=== PATIENT | female | born 1965 | race Caucasian/White ===

== ENCOUNTER → 2017-02-20 | Outpatient (CLI) | payer MEDICARE, MEDICAID ==
[2017-02-20 12:25] LABS: ANION GAP 10 (5-19); BLOOD UREA NITROGEN 19 mg/dL (7-20); CARBON DIOXIDE 28 mmol/L (22-30); CHLORIDE 104 mmol/L (98-107); CREATININE RESULT 0.98 mg/dL (0.52-1.25); GLUCOSE 92 mg/dL (75-110); POTASSIUM 4.8 mmol/L (3.6-5.0)
[2017-02-20 12:26] LABS: CALCIUM 9.6 mg/dL (8.4-10.2)
== END ==
LOC: OD 11:36
PROVIDERS: ATTEND Family Medicine
DX: E87.5 Hyperkalemia (principal)
CPT/HCPCS: 36415; 80048

== ENCOUNTER → 2017-03-09 | Outpatient (CLI) | payer MEDICARE, MEDICAID ==
[2017-03-09 14:17] LABS: ANION GAP 13 (5-19); BLOOD UREA NITROGEN 23 mg/dL (7-20); CALCIUM 10.6 mg/dL (8.4-10.2); CARBON DIOXIDE 27 mmol/L (22-30); CHLORIDE 102 mmol/L (98-107); CREATININE RESULT 1.08 mg/dL (0.52-1.25); GLUCOSE 115 mg/dL (75-110); POTASSIUM 5.1 mmol/L (3.6-5.0); SODIUM 141.9 mmol/L (137-145)
== END ==
LOC: OD 12:51
PROVIDERS: ATTEND Family Medicine
DX: E87.5 Hyperkalemia (principal)
CPT/HCPCS: 36415; 80048

== ENCOUNTER → 2017-03-16 | Outpatient (CLI) | payer MEDICARE, MEDICAID ==
[2017-03-16 11:31] LABS: ANION GAP 13 (5-19); BLOOD UREA NITROGEN 20 mg/dL (7-20); CALCIUM 9.7 mg/dL (8.4-10.2); CARBON DIOXIDE 27 mmol/L (22-30); CHLORIDE 102 mmol/L (98-107); CREATININE RESULT 0.98 mg/dL (0.52-1.25); GLUCOSE 113 mg/dL (75-110); POTASSIUM 4.5 mmol/L (3.6-5.0); SODIUM 141.6 mmol/L (137-145)
== END ==
LOC: OD 09:37
PROVIDERS: ATTEND Family Medicine
DX: E87.5 Hyperkalemia (principal)
CPT/HCPCS: 36415; 80048

== ENCOUNTER → 2017-03-21 | Day surgery (SDC) | payer MEDICARE, MEDICAID ==
[~2017-03-21] MED LIST: LIDOCAINE 2% JELLY 5 ML TUBE ONE
== END ==
LOC: END 07:07
PROVIDERS: ATTEND Internal Medicine Gastroenterology
PROC: 4A0B7BZ Measurement of Gastrointestinal Pressure, Via Natural or Artificial Opening (ICD-10-PCS; principal; 2017-03-21)
DX: R13.10 Dysphagia, unspecified (principal)
CPT/HCPCS: 91010

== ENCOUNTER → 2017-06-26 | Outpatient (CLI) | payer MEDICARE, MEDICAID ==
--- NOTE | 2017-06-26 16:44 | RADIOLOGY REPORT (SQ) ---
EXAM DESCRIPTION: CT ABD/PELVIS NO ORAL OR IV COMPLETED DATE/TIME: 06/26/2017 3:55 pm REASON FOR STUDY: LOWER ABDOMINAL PAIN R10.30 LOWER ABDOMINAL PAIN, UNSPECIFIED COMPARISON: CT abdomen and pelvis 07/24/2013, 07/08/2015 TECHNIQUE: CT scan of the abdomen and pelvis performed without intravenous or oral contrast. Images reviewed with lung, soft tissue, and bone windows. Reconstructed coronal and sagittal MPR images revi ewed. All images stored on PACS. All CT scanners at this facility use dose modulation, iterative reconstruction, and/or weight based d osing when appropriate to reduce radiation dose to as low as reasonably achievable (ALARA). [facility]: Dose Right [facility]: CareDose [facility]: Dose Right [facility]: Teradose 4D [facility]: Smart Technologies RADIATION DOSE: Up-to-date CT equipment and radiation dose reduction techniques were employed. CTDIv ol: 30.5 mGy. DLP: 1691 mGy-cm.mGy. LIMITATIONS: Large patient FINDINGS: LOWER CHEST: No significant findings. No nodules or infiltrates. NON-CONTRASTED LIVER, SPLEEN, ADRENALS: Evaluation limited by lack of IV contrast. No identified sign ificant masses. PANCREAS: No masses. No peripancreatic inflammatory changes. GALLBLADDER: Surgically absent RIGHT KIDNEY AND URETER: No suspicious masses. Assessment limited by lack of IV contrast. No signif icant calcifications. No hydronephrosis or hydroureter. LEFT KIDNEY AND URETER: No suspicious masses. Assessment limited by lack of IV contrast. No signifi cant calcifications. No hydronephrosis or hydroureter. AORTA AND RETROPERITONEUM: No aneurysm. No retroperitoneal masses or adenopathy. BOWEL AND PERITONEAL CAVITY: No obvious masses or inflammatory changes. No free fluid. Large amount of stool throughout the colon. No evidence of bowel obstruction APPENDIX: Normal. PELVIS, BLADDER, AND ABDOMINAL WALL:No abnormal masses. No free fluid. Bladder normal. Normal size f emale pelvic organs, IUD in the uterus. BONES: Degenerative disc changes at L5-S1 OTHER: No other significant finding. IMPRESSION: NO SIGNIFICANT OR ACUTE PROCESS IN THE ABDOMEN OR PELVIS. COMMENT: Report called to Laxmi Sheth PA-C 1615 hours 06/26/2017 TECHNICAL DOCUMENTATION: JOB ID: [id number] Quality ID # [id number]: Final reports with documentation of one or more dose reduction techniques (e.g., Au tomated exposure control, adjustment of the mA and/or kV according to patient size, use of iterative reconstruction technique) 2010 [employer]- All Rights Reserved
== END ==
LOC: RAD 15:44
PROVIDERS: ATTEND Physician Assistant
DX: R10.30 Lower abdominal pain, unspecified (principal)
CPT/HCPCS: 74176

== ENCOUNTER → 2017-06-26 | Outpatient (CLI) | payer MEDICARE, MEDICAID ==
[2017-06-26 16:42] LABS: ABSOLUTE EOSINOPHILS # (AUTO) 0.4 10^3/uL (0.0-0.6); ABSOLUTE MONOCYTES (AUTO) 0.8 10^3/uL (0.1-1.4); ABSOLUTE NEUT (AUTO) 6.5 10^3/uL (1.7-8.2); BASOPHILS % (AUTO) 0.5 % (0-2); EOSINOPHILS % (AUTO) 4.1 % (0-6); HEMATOCRIT 39.8 % (36.0-47.0); HEMOGLOBIN 13.4 g/dL (12.0-15.5); HGB HCT DIFFERENCE 0.4; LYMPHOCYTES % (AUTO) 20.3 % (13-45); MEAN CORPUSCULAR HEMOGLOBIN 30.1 pg (27.0-33.4); MEAN CORPUSCULAR HGB CONC 33.5 g/dL (32.0-36.0); MEAN CORPUSCULAR VOLUME 90 fl (80-97); MONOCYTES % (AUTO) 7.8 % (3-13); RED BLOOD COUNT 4.44 10^6/uL (3.72-5.28); RED CELL DISTRIBUTION WIDTH 13.5 % (11.5-14.0); SEGMENTED NEUTROPHILS % (AUTO) 67.3 % (42-78); WHITE BLOOD COUNT 9.6 10^3/uL (4.0-10.5)
[2017-06-26 17:01] LABS: ALANINE AMINOTRANSFERASE 26 U/L (9-52); ALKALINE PHOSPHATASE 121 U/L (38-126); ANION GAP 10 (5-19); ASPARTATE AMINO TRANSFERASE 42 U/L (14-36); BILIRUBIN,DIRECT 0.5 mg/dL (0.0-0.4); BILIRUBIN,TOTAL 0.6 mg/dL (0.2-1.3); BLOOD UREA NITROGEN 20 mg/dL (7-20); CALCIUM 9.7 mg/dL (8.4-10.2); CARBON DIOXIDE 28 mmol/L (22-30); CHLORIDE 101 mmol/L (98-107); CREATININE RESULT 1.14 mg/dL (0.52-1.25); GLUCOSE 80 mg/dL (75-110); LIPASE 35.7 U/L (23-300); POTASSIUM 4.9 mmol/L (3.6-5.0); SODIUM 139.3 mmol/L (137-145); TOTAL PROTEIN 7.1 g/dL (6.3-8.2)
== END ==
LOC: LAB 16:02
PROVIDERS: ATTEND Physician Assistant
DX: R10.30 Lower abdominal pain, unspecified (principal)
CPT/HCPCS: 36415; 80053; 83690; 85025

== ENCOUNTER → 2017-07-16 | Outpatient (CLI) | payer MEDICARE, MEDICAID ==
--- NOTE | 2017-07-16 14:12 | WOMENS IMAGING REPORT ---
EXAM DESCRIPTION: 3D SCREENING MAMMO BILAT COMPLETED DATE/TIME: 07/16/2017 1:19 pm REASON FOR STUDY: ROUTINE SCREENING; Z12.31 Z12.31 ENCNTR SCREEN MAMMOGRAM FOR MALIGNANT NEOPLASM O F JOSE COMPARISON: 03/23/2016 TECHNIQUE: Standard craniocaudal and mediolateral oblique views of each breast recorded using digita l acquisition and breast tomosynthesis. LIMITATIONS: None. FINDINGS: No masses, calcifications or architectural distortion. No areas of suspicion. Read with the assistance of CAD. .[facility] - R2 Cenova Version 1.3 .[facility] Imaging - R2 Cenova Version 1.3 .[facility] - R2 Cenova Version 2.4 .[facility] - R2 Cenova Version 2.4 .[facility] - R2 Excellence Manager Version 9.2 IMPRESSION: NORMAL MAMMOGRAM. BIRADS 1. BREAST DENSITY: a. The breasts are almost entirely fatty. BIRAD: 1 NEGATIVE RECOMMENDATION: ROUTINE SCREENING COMMENT: The patient has been notified of the results by letter per MQSA requirements. Additional no tification policies are in place for contacting patient with suspicious or incomplete findings. Quality ID #[id number]: The [employer] recommends an annual screening mammogram for women aged 40 years or over. This facility utilizes a reminder system to ensure that all patients receive reminder letters, and/or direct phone calls for appointments. This includes reminders for routine scr eening mammograms, diagnostic mammograms, or other Breast Imaging Interventions when appropriate. Th is patient will be placed in the appropriate reminder system. The [employer] (ACR) has developed recommendations for screening MRI of the breast s in certain patient populations, to be used in conjunction with mammography. Breast MRI surveillanc e may be appropriate for women with more than 20% lifetime risk of developing breast cancer as deter mined by genetic testing, significant family history of the disease, or history of mantle radiation f or Hodgkins Disease. ACR Practice Guidelines 2008. DBT Technology DBT is a type of tomographic mammography. With conventional mammography, overlapping breast tissue ma y make lesions difficult to detect, even with good compression. DBT uses an x-ray tube that rotates a round the breast, taking images at different angles. These images are then combined to create thin sl ices of the breast that the radiologist can view as a 3D reconstruction. The [facility] unit can perform full-field digital mammograms (2D imaging); or DBT (3D imaging); or both, in a combination mode that quickly performs both the mammogram and the tomosynthesis scan while the breast is still compressed. PQRS 6045F: Fluoroscopic imaging is not utilized for breast tomosynthesis. TECHNICAL DOCUMENTATION: FINDING NUMBER: (1) ASSESSMENT: (1) JOB ID: [id number] [employer]- All Rights Reserved
== END ==
LOC: WI 13:10
PROVIDERS: ATTEND Physician Assistant
DX: Z12.31 Encounter for screening mammogram for malignant neoplasm of breast (principal)
CPT/HCPCS: 77063; G0202; 77067

== ENCOUNTER → 2017-10-31 | Outpatient (CLI) | payer MEDICARE, MEDICAID ==
[2017-10-31 17:57] LABS: HEMATOCRIT 37.9 % (36.0-47.0); HGB HCT DIFFERENCE 1.1; MEAN CORPUSCULAR HEMOGLOBIN 30.2 pg (27.0-33.4); MEAN CORPUSCULAR HGB CONC 34.3 g/dL (32.0-36.0); MEAN CORPUSCULAR VOLUME 88 fl (80-97); RED CELL DISTRIBUTION WIDTH 13.1 % (11.5-14.0); WHITE BLOOD COUNT 8.6 10^3/uL (4.0-10.5)
[2017-10-31 18:20] LABS: ALANINE AMINOTRANSFERASE 41 U/L (9-52); ALBUMIN 4.1 g/dL (3.5-5.0); ALKALINE PHOSPHATASE 121 U/L (38-126); ANION GAP 13 (5-19); ASPARTATE AMINO TRANSFERASE 41 U/L (14-36); BILIRUBIN,DIRECT 0.3 mg/dL (0.0-0.4); BILIRUBIN,TOTAL 0.3 mg/dL (0.2-1.3); BLOOD UREA NITROGEN 29 mg/dL (7-20); CALCIUM 10.1 mg/dL (8.4-10.2); CARBON DIOXIDE 30 mmol/L (22-30); CHLORIDE 99 mmol/L (98-107); CREATININE RESULT 1.21 mg/dL (0.52-1.25); GLUCOSE 117 mg/dL (75-110); POTASSIUM 5.1 mmol/L (3.6-5.0); SODIUM 141.9 mmol/L (137-145); TOTAL PROTEIN 6.7 g/dL (6.3-8.2)
== END ==
LOC: OD 16:52
PROVIDERS: ATTEND Physician Assistant Medical
DX: E03.9 Hypothyroidism, unspecified (principal); R53.83 Other fatigue; R06.02 Shortness of breath
CPT/HCPCS: 36415; 80053; 83880; 84443; 85027

== ENCOUNTER → 2017-12-10 | Outpatient (CLI) | payer OTHER, MEDICAID ==
[2017-12-10 14:46] LABS: ANION GAP 9 (5-19); BLOOD UREA NITROGEN 21 mg/dL (7-20); CALCIUM 9.9 mg/dL (8.4-10.2); CARBON DIOXIDE 30 mmol/L (22-30); CHLORIDE 102 mmol/L (98-107); GLUCOSE 70 mg/dL (75-110); POTASSIUM 4.6 mmol/L (3.6-5.0); SODIUM 141.1 mmol/L (137-145)
== END ==
LOC: OD 12:58
PROVIDERS: ATTEND Family Medicine
DX: E87.5 Hyperkalemia (principal)
CPT/HCPCS: 36415; 80048

== ENCOUNTER 2018-04-16 17:34 | Emergency (ER) | payer MEDICARE, MEDICAID ==
[2018-04-16] MEDS ORDERED: ASPIRIN 81 MG TABLET, CHEWABLE PO ONE (20:09)
[2018-04-16] MEDS ORDERED: NORMAL SALINE 1000 ML 1,000 ML IV PRN (20:10)
--- NOTE | 2018-04-16 20:20 | ER Document Report ---
ED Medical Screen (RME) - General Chief Complaint: Leg Swelling Stated Complaint: LEFT LOWER LEG PAIN Time Seen by Provider: 04/16/18 20:07 Notes: 53 years old female presents today with left lower leg redness swelling and erythema for the last few days. Also having rapid heartbeat with a history of atrial fibrillation. [place] like having palpitation on and off but did not have any today. She was seen by the primary care physician and referred over here for further evaluation of the rapid A. fib. She is on multiple medications list is included I have greeted and performed a rapid initial assessment of this patient. A comprehensive ED assessment and evaluation of the patient, analysis of test results and completion of the medical decision making process will be conducted by additional ED providers. PHYSICAL EXAMINATION: GENERAL: Well-appearing, well-nourished and in no acute distress. HEAD: Atraumatic, normocephalic. Morbid obesity EYES: Pupils equal round extraocular movements intact, conjunctiva are normal. ENT: Nares patent NECK: Normal range of motion LUNGS: No respiratory distress Musculoskeletal: Normal range of motion examination of the left lower leg-shows diffuse erythema is warm and slightly tender on palpation. NEUROLOGICAL: Normal speech, normal gait. PSYCH: Normal mood, normal affect. SKIN: Warm, Dry, normal turgor, no rashes or lesions noted. TRAVEL OUTSIDE OF THE [place] IN LAST 30 DAYS: No - Related Data Allergies/Adverse Reactions: bismuth subsalicylate [From Pepto-Bismol] Allergy (Severe, Verified 02/02/15 10: 48) VOMITING ciprofloxacin [From Cipro] Adverse Reaction (Intermediate, Verified 03/10/16 10: 04) Dizziness/nasea Past Medical History - Social History Chew tobacco use (# tins/day): No Frequency of alcohol use: Social Drug Abuse: None - Past Medical History Cardiac Medical History: Reports: Hx Atrial Fibrillation, Hx Hypercholesterolemia, Hx Hypertension - medicated Denies: Hx Coronary Artery Disease, Hx Heart Attack Pulmonary Medical History: Reports: Hx Bronchitis Denies: Hx Asthma Neurological Medical History: Denies: Hx Cerebrovascular Accident, Hx Seizures Endocrine Medical History: Reports: Hx Diabetes Mellitus Type 1, Hx Diabetes Mellitus Type 2 Renal/ Medical History: Denies: Hx Peritoneal Dialysis GI Medical History: Reports: Hx Diverticulitis, Hx Gastritis, Hx Gastroesophageal Reflux Disease, Hx Hiatal Hernia, Hx Irritable Bowel. Denies: Hx Hepatitis, Hx Ulcer Musculoskeltal Medical History: Reports Hx Arthritis, Reports Hx Musculoskeletal Deformity, Reports Hx Musculoskeletal Trauma Skin Medical History: Reports Hx Cellulitis Traumatic Medical History: Reports: Hx Fractures - foot Infectious Medical History: Denies: Hx Hepatitis, Hx MRSA, Hx VRE Past Surgical History: Reports: Hx Section, Hx Cholecystectomy, Hx Neurologic Surgery - nerve release right foot, Hx Oral Surgery, Hx Orthopedic Surgery. Denies: Hx Hysterectomy, Hx Mastectomy, Hx Open Heart Surgery, Hx Pacemaker - Immunizations Immunizations up to date: Yes Hx Diphtheria, Pertussis, Tetanus Vaccination: Yes Physical Exam - Vital signs Vitals: Temp Pulse Resp BP Pulse Ox 98.4 F 89 18 131/74 H 97 04/16/18 17:43 04/16/18 17:43 04/16/18 17:43 04/16/18 17:43 04/16/18 17:43 Course - Vital Signs Vital signs: Temp Pulse Resp BP Pulse Ox 98.4 F 89 18 131/74 H 97 04/16/18 17:43 04/16/18 17:43 04/16/18 17:43 04/16/18 17:43 04/16/18 17:43
[2018-04-16] MEDS ORDERED: CEFTRIAXONE 1 GM/D5W RTU 1 GM/50 ML RTUPB IV ONE (21:00)
[2018-04-16 21:36] LABS: ALANINE AMINOTRANSFERASE 39 U/L (9-52); ALBUMIN 4.2 g/dL (3.5-5.0); ALKALINE PHOSPHATASE 207 U/L (38-126); ANION GAP 13 (5-19); ASPARTATE AMINO TRANSFERASE 62 U/L (14-36); BILIRUBIN,DIRECT 0.6 mg/dL (0.0-0.4); BILIRUBIN,TOTAL 0.6 mg/dL (0.2-1.3); BLOOD UREA NITROGEN 29 mg/dL (7-20); CALCIUM 10.5 mg/dL (8.4-10.2); CARBON DIOXIDE 30 mmol/L (22-30); CHLORIDE 100 mmol/L (98-107); CREATINE KINASE 80 U/L (30-135); GLUCOSE 79 mg/dL (75-110); POTASSIUM 5.1 mmol/L (3.6-5.0); SODIUM 143.1 mmol/L (137-145); TOTAL PROTEIN 7.8 g/dL (6.3-8.2)
[2018-04-16 22:01] LABS: ABSOLUTE EOSINOPHILS # (AUTO) 0.3 10^3/uL (0.0-0.6); ABSOLUTE LYMPHOCYTES (AUTO) 1.9 10^3/uL (0.5-4.7); ABSOLUTE MONOCYTES (AUTO) 0.6 10^3/uL (0.1-1.4); ABSOLUTE NEUT (AUTO) 7.5 10^3/uL (1.7-8.2); BASOPHILS % (AUTO) 0.5 % (0-2); EOSINOPHILS % (AUTO) 2.5 % (0-6); HEMATOCRIT 38.9 % (36.0-47.0); HEMOGLOBIN 13.2 g/dL (12.0-15.5); LYMPHOCYTES % (AUTO) 18.1 % (13-45); MEAN CORPUSCULAR HEMOGLOBIN 29.3 pg (27.0-33.4); MEAN CORPUSCULAR VOLUME 86 fl (80-97); MONOCYTES % (AUTO) 5.9 % (3-13); PLATELET COUNT 324 10^3/uL (150-450); RED BLOOD COUNT 4.51 10^6/uL (3.72-5.28); RED CELL DISTRIBUTION WIDTH 14.2 % (11.5-14.0); TOTAL CELLS COUNTED % (AUTO) 100 %; WHITE BLOOD COUNT 10.3 10^3/uL (4.0-10.5)
--- NOTE | 2018-04-16 22:03 | ER Document Report ---
ED General - General Chief Complaint: Leg Swelling Stated Complaint: LEFT LOWER LEG PAIN Time Seen by Provider: 04/16/18 20:07 Mode of Arrival: Ambulatory Information source: Patient, [facility] Records Notes: 53-year-old female with atrial fibrillation, diabetes, neuropathy, gastritis presents with complaint of left lower extremity pain, swelling, erythema and warmth that started 5 days prior to arrival. Patient also reports intermittent palpitations and intermittent episodes of shortness of breath. She denies prior history of PE or DVT. She denies any trauma to the leg. She denies any recent surgery, recent travel, estrogen use, cancer history. Patient was seen by her naval architect last week who is arranging for a Holter monitor. Patient denies any chest pain, fever, chills. She admits to chronic nausea and vomiting that is unchanged. She was seen by her natural fabricator who sent her to her primary care physician's office who sent her to the emergency room TRAVEL OUTSIDE OF THE [place] IN LAST 30 DAYS: No - HPI Onset: Last week Onset/Duration: Gradual, Worse Severity: Mild Associated symptoms: Leg swelling, Nausea, Vomiting - Chronic, Shortness of breath - Chronic. denies: Fever, Hurts to breath Exacerbated by: Denies Relieved by: Denies Similar symptoms previously: No Recently seen / treated by doctor: Yes - Related Data Allergies/Adverse Reactions: bismuth subsalicylate [From Pepto-Bismol] Allergy (Severe, Verified 02/02/15 10: 48) VOMITING ciprofloxacin [From Cipro] Adverse Reaction (Intermediate, Verified 03/10/16 10: 04) Dizziness/nasea Past Medical History - General Information source: Patient - Social History Smoking Status: Never Smoker Chew tobacco use (# tins/day): No Frequency of alcohol use: Social Drug Abuse: None Lives with: Family Family History: Arthritis, CAD, CVA, DM, Hyperlipidemia, Hypertension Patient has suicidal ideation: No Patient has homicidal ideation: No - Past Medical History Cardiac Medical History: Reports: Hx Atrial Fibrillation, Hx Hypercholesterolemia, Hx Hypertension - medicated Denies: Hx Coronary Artery Disease, Hx Heart Attack Pulmonary Medical History: Reports: Hx Bronchitis Denies: Hx Asthma Neurological Medical History: Denies: Hx Cerebrovascular Accident, Hx Seizures Endocrine Medical History: Reports: Hx Diabetes Mellitus Type 1, Hx Diabetes Mellitus Type 2 Renal/ Medical History: Denies: Hx Peritoneal Dialysis GI Medical History: Reports: Hx Diverticulitis, Hx Gastritis, Hx Gastroesophageal Reflux Disease, Hx Hiatal Hernia, Hx Irritable Bowel. Denies: Hx Hepatitis, Hx Ulcer Musculoskeltal Medical History: Reports Hx Arthritis, Reports Hx Musculoskeletal Deformity, Reports Hx Musculoskeletal Trauma Skin Medical History: Reports Hx Cellulitis Traumatic Medical History: Reports: Hx Fractures - foot Infectious Medical History: Denies: Hx Hepatitis, Hx MRSA, Hx VRE Past Surgical History: Reports: Hx Section, Hx Cholecystectomy, Hx Neurologic Surgery - nerve release right foot, Hx Oral Surgery, Hx Orthopedic Surgery. Denies: Hx Hysterectomy, Hx Mastectomy, Hx Open Heart Surgery, Hx Pacemaker - Immunizations Immunizations up to date: Yes Hx Diphtheria, Pertussis, Tetanus Vaccination: Yes Physical Exam - Vital signs Vitals: Temp Pulse Resp BP Pulse Ox 98.4 F 89 18 131/74 H 97 04/16/18 17:43 04/16/18 17:43 04/16/18 17:43 04/16/18 17:43 04/16/18 17:43 Interpretation: Hypertensive. No: Febrile - Notes Notes: PHYSICAL EXAMINATION: GENERAL: Well-appearing, well-nourished and in no acute distress. HEAD: Atraumatic, normocephalic. EYES: Pupils equal round and reactive to light, extraocular movements intact, conjunctiva are normal. ENT: Nares patent, oropharynx clear without exudates. Moist mucous membranes. NECK: Normal range of motion, supple without lymphadenopathy LUNGS: Breath sounds clear to auscultation bilaterally and equal. No wheezes rales or rhonchi. HEART: Regular rate and rhythm without murmurs ABDOMEN: Soft, nontender, nondistended abdomen. No guarding, no rebound. No masses appreciated. Female : deferred Musculoskeletal: Swelling of the left lower extremity when compared to right. Tender to palpation along the left calf. Erythema of the left lower extremity with associated warmth. NEUROLOGICAL: Cranial nerves grossly intact. Normal speech, normal gait. Normal sensory, motor exams PSYCH: Normal mood, normal affect. SKIN: Erythema and warmth of the left lower extremity Course - Re-evaluation Re-evalutation: Laboratory 04/16/18 04/16/18 04/16/18 20:55 20:55 21:40 WBC 10.3 RBC 4.51 Hgb 13.2 Hct 38.9 MCV 86 MCH 29.3 MCHC 34.0 RDW 14.2 H Plt Count 324 Seg Neutrophils % 73.0 Lymphocytes % 18.1 Monocytes % 5.9 Eosinophils % 2.5 Basophils % 0.5 Absolute Neutrophils 7.5 Absolute Lymphocytes 1.9 Absolute Monocytes 0.6 Absolute Eosinophils 0.3 Absolute Basophils 0.0 D-Dimer Sodium 143.1 Potassium 5.1 H Chloride 100 Carbon Dioxide 30 Anion Gap 13 BUN 29 H Creatinine 1.00 Est GFR ( Amer) > 60 Est GFR (Non-Af Amer) 58 L Glucose 79 Calcium 10.5 H Total Bilirubin 0.6 Direct Bilirubin 0.6 H Neonat Total Bilirubin Not Reportable Neonat Direct Bilirubin Not Reportable Neonat Indirect Bili Not Reportable AST 62 H ALT 39 Alkaline Phosphatase 207 H Creatine Kinase 80 CK-MB (CK-2) Cancelled Troponin I Cancelled Total Protein 7.8 Albumin 4.2 04/16/18 04/16/18 21:50 21:50 WBC RBC Hgb Hct MCV MCH MCHC RDW Plt Count Seg Neutrophils % Lymphocytes % Monocytes % Eosinophils % Basophils % Absolute Neutrophils Absolute Lymphocytes Absolute Monocytes Absolute Eosinophils Absolute Basophils D-Dimer 0.33 Sodium Potassium Chloride Carbon Dioxide Anion Gap BUN Creatinine Est GFR ( Amer) Est GFR (Non-Af Amer) Glucose Calcium Total Bilirubin Direct Bilirubin Neonat Total Bilirubin Neonat Direct Bilirubin Neonat Indirect Bili AST ALT Alkaline Phosphatase Creatine Kinase CK-MB (CK-2) 1.45 Troponin I < 0.012 Total Protein Albumin 53-year-old female with atrial fibrillation, diabetes, neuropathy, gastritis presents with complaint of left lower extremity pain, swelling, erythema and warmth that started 5 days prior to arrival. Patient also reports intermittent palpitations and intermittent episodes of shortness of breath. She denies prior history of PE or DVT. Patient was seen by myself upon arrival. Vital signs were reviewed. Patient is afebrile, normotensive and not hypoxic. Patient does not appear toxic or dehydrated. They are in no acute distress. Previous medical records and nursing notes reviewed. Significant findings include left lower extremity swelling, erythema, warmth. Patient is currently on Eliquis. CBC is without anemia or leukocytosis. CMP does show a mildly elevated potassium. Cardiac enzymes were within normal limits. Patient also does have mild elevation in her LFTs. Patient received IV ceftriaxone during her ED course. She will be discharged home with prescription for Bactrim and Keflex. Arrangements for outpatient duplex of the left lower extremity was made. Patient provided the opportunity to ask questions, and express concerns. Discharge instructions discussed. Patient is agreeable with discharge home. Return indications explained and discussed with the patient who displays understanding. Patient encouraged to return to the emergency department immediately with any concerns. 04/16/18 22:07 Talked to the equipment engineering technician who states that she is not "allowed to come in after 10:00." She recommends outpatient testing. 04/17/18 00:02 04/17/18 19:39 - Vital Signs Vital signs: Temp Pulse Resp BP Pulse Ox 97.4 F 79 16 132/73 H 99 04/16/18 23:20 04/16/18 23:20 04/16/18 23:20 04/16/18 23:20 04/16/18 23:20 - Laboratory Result Diagrams: 04/16/18 21:40 04/16/18 20:55 Laboratory results interpreted by me: 04/16/18 04/16/18 20:55 21:40 RDW 14.2 H Potassium 5.1 H BUN 29 H Est GFR (Non-Af Amer) 58 L Calcium 10.5 H Direct Bilirubin 0.6 H AST 62 H Alkaline Phosphatase 207 H - Diagnostic Test Radiology reviewed: Image reviewed, Reports reviewed Discharge - Discharge Clinical Impression: Left leg swelling, Left leg cellulitis Condition: Good Disposition: HOME, SELF-CARE Instructions: Cellulitis ([facility]), DVT Workup Pending ([facility]) Additional Instructions: Please return to [facility] first thing tomorrow morning for a duplex of your left leg. Prescriptions: Cephalexin Monohydrate [Keflex 500 mg Capsule] 500 mg PO BID 7 Days #14 capsule Sulfamethoxazole/Trimethoprim [Bactrim Ds Tablet] 1 each PO BID 7 Days #14 tablet Forms: Follow-Up Radiology Testing Referrals: KALYANI NARANJO MD [Primary Care Provider] - Follow up in 3-5 days
--- NOTE | 2018-04-16 22:05 | RADIOLOGY REPORT (SQ) ---
EXAM DESCRIPTION: CHEST SINGLE VIEW COMPLETED DATE/TIME: 04/16/2018 9:31 pm REASON FOR STUDY: Palpitations COMPARISON: 05/25/2016 EXAM PARAMETERS: NUMBER OF VIEWS: One view. TECHNIQUE: Single frontal radiographic view of the chest acquired. RADIATION DOSE: NA LIMITATIONS: None. FINDINGS: LUNGS AND PLEURA: No opacities, masses or pneumothorax. No pleural effusion. MEDIASTINUM AND HILAR STRUCTURES: No masses. Contour normal. HEART AND VASCULAR STRUCTURES: Heart normal in size. Normal vasculature. BONES: No acute findings. HARDWARE: None in the chest. OTHER: No other significant finding. IMPRESSION: NO ACUTE RADIOGRAPHIC FINDING IN THE CHEST. TECHNICAL DOCUMENTATION: JOB ID: [id number] [employer]- All Rights Reserved Reading location - IP/workstation name: [email or web address]
[2018-04-16 22:54] LABS: CREATINE KINASE MB 1.45 ng/mL (<4.55); TROPONIN I < 0.012 ng/mL
[2018-04-16] MEDS ORDERED: ENOXAPARIN SODIUM INJ 150 MG/1 ML DISP.SYRIN SUBCUT SCH (23:00)
[2018-04-17 00:04] VITALS: BP 132/73
== END 2018-04-16 23:20 | disposition home or self-care (01) ==
LOC: ER 17:34
DX: L03.116 Cellulitis of left lower limb (principal); E11.40 Type 2 diabetes mellitus with diabetic neuropathy, unspecified; R00.2 Palpitations; R06.02 Shortness of breath; K29.70 Gastritis, unspecified, without bleeding; I10 Essential (primary) hypertension; R79.89 Other specified abnormal findings of blood chemistry; I48.91 Unspecified atrial fibrillation; Z79.01 Long term (current) use of anticoagulants; Z88.8 Allergy status to other drugs, medicaments and biological substances
CPT/HCPCS: 99284; 96365; 36415; 87040; 82553; 82550; 85025; 80053; 84484; 85379; 71045; A9270; J0696

== ENCOUNTER → 2018-04-17 | Outpatient (CLI) | payer MEDICARE, MEDICAID ==
--- NOTE | 2018-04-17 10:12 | RADIOLOGY REPORT (SQ) ---
EXAM DESCRIPTION: VENOUS UNILATERAL LOWER COMPLETED DATE/TIME: 04/17/2018 10:04 am REASON FOR STUDY: LLE SWELLING M79.89 OTHER SPECIFIED SOFT TISSUE DISORDERS COMPARISON: None. TECHNIQUE: Dynamic and static bridges scale and color images acquired of the left leg venous system. Se lected spectral images acquired with additional compression and augmentation maneuvers. The contralat eral common femoral vein and saphenofemoral junction were also imaged. Images stored on PACS. LIMITATIONS: Large body habitus FINDINGS: LEFT COMMON FEMORAL: Normal phasicity, compression and augmentation. No visualized echogenic material on g ray scale. No defects on color images. FEMORAL: Normal compression and augmentation. No visualized echogenic material on bridges scale. No defe cts on color images. POPLITEAL: Normal compression, augmentation. No visualized echogenic material on bridges scale. No defec ts on color images. CALF VESSELS: Normal compression, augmentation. No visualized echogenic material on bridges scale. No de fects on color images. GSV and SSV: Normal compression, augmentation. No visualized echogenic material on bridges scale. No def ects on color images. ANY DEEP VENOUS INSUFFICIENCY: Not evaluated. ANY EVIDENCE OF POPLITEAL CYST: No. OTHER: No other significant finding. RIGHT COMMON FEMORAL VEIN AND SAPHENOFEMORAL JUNCTION: Normal phasicity, compression and augmentation. No visualized echogenic material on bridges scale. No de fects on color images. IMPRESSION: NO EVIDENCE OF DVT OR SVT IN THE LEFT LEG. TECHNICAL DOCUMENTATION: JOB ID: [id number] [employer]- All Rights Reserved Reading location - IP/workstation name: [email or web address]
== END ==
LOC: SP 09:06
PROVIDERS: ATTEND Student in an Organized Health Care Education/Training Program
DX: M79.89 Other specified soft tissue disorders (principal)
CPT/HCPCS: 93971

== ENCOUNTER → 2018-06-10 | Outpatient (CLI) | payer MEDICARE, MEDICAID ==
--- NOTE | 2018-06-11 11:16 | XCELERA REPORT ---
[address] [address] Lower Extremity Venous Evaluation Name: MICHAELA ALY Age: 53 yrs Gender: Female : 1965 Patient Status: Preadmit Patient Location: Study Date: 06/10/2018 03:30 PM Procedure: A bilateral duplex scan of the lower extremity veins was performed. The evaluation included responses to compression and other maneuvers with patient in the supine and standing positions to assess venous insufficiency. Reason For Study: VENOUS STASIS DERMATITIS Ordering Physician: BRANDON HOPE Performed By: Kar Peterson Right Sided Venous Evaluation Deep venous system evaluatiion shows patent veins with no obstruction or significant reflux identified. Sapheno Femoral junction: no reflux. Femoral vein reflux: no reflux. Greater Saphenous vein, Proximal thigh: reflux: no reflux. Greater Saphenous vein, Distal thigh: reflux: no reflux. Greater Saphenous vein, Proximal below knee: reflux: no reflux. No significant Perforators identified. Left Sided Venous Evaluation Deep venous system evaluatiion shows patent veins with no obstruction or significant reflux identified. Sapheno Femoral junction: no reflux. Femoral vein reflux: no reflux. Greater Saphenous vein, Proximal thigh: reflux: no reflux. Greater Saphenous vein, Distal thigh: reflux: no reflux. Greater Saphenous vein, Proximal below knee: reflux: no reflux. No significant Perforators identified. Interpretation Summary No duplex evidence of DVT or obstruction in the bilateral lower extremities. No deep or superficial reflux. : BRANDON HOPE > Brandon Hope
== END ==
LOC: SP 18:15
PROVIDERS: ATTEND Surgery
DX: I87.2 Venous insufficiency (chronic) (peripheral) (principal)
CPT/HCPCS: 93970

== ENCOUNTER → 2018-06-20 | Outpatient (CLI) | payer MEDICARE, MEDICAID ==
[2018-06-20 17:22] LABS: ABSOLUTE EOSINOPHILS # (AUTO) 0.3 10^3/uL (0.0-0.6); ABSOLUTE LYMPHOCYTES (AUTO) 1.8 10^3/uL (0.5-4.7); ABSOLUTE MONOCYTES (AUTO) 0.6 10^3/uL (0.1-1.4); ABSOLUTE NEUT (AUTO) 5.8 10^3/uL (1.7-8.2); BASOPHILS % (AUTO) 0.3 % (0-2); EOSINOPHILS % (AUTO) 3.5 % (0-6); HEMATOCRIT 37.3 % (36.0-47.0); HEMOGLOBIN 12.6 g/dL (12.0-15.5); LYMPHOCYTES % (AUTO) 20.6 % (13-45); MEAN CORPUSCULAR HEMOGLOBIN 28.6 pg (27.0-33.4); MEAN CORPUSCULAR HGB CONC 33.8 g/dL (32.0-36.0); MEAN CORPUSCULAR VOLUME 85 fl (80-97); PLATELET COUNT 319 10^3/uL (150-450); RED CELL DISTRIBUTION WIDTH 13.9 % (11.5-14.0); SEGMENTED NEUTROPHILS % (AUTO) 68.6 % (42-78); TOTAL CELLS COUNTED % (AUTO) 100 %; WHITE BLOOD COUNT 8.5 10^3/uL (4.0-10.5)
[2018-06-20 17:37] LABS: ALBUMIN 4.3 g/dL (3.5-5.0); ANION GAP 15 (5-19); CARBON DIOXIDE 28 mmol/L (22-30); CHLORIDE 101 mmol/L (98-107); GLUCOSE 96 mg/dL (75-110); POTASSIUM 4.9 mmol/L (3.6-5.0); SODIUM 144.3 mmol/L (137-145); TOTAL PROTEIN 7.1 g/dL (6.3-8.2)
[2018-06-20 17:46] LABS: ALANINE AMINOTRANSFERASE 26 U/L (9-52); ALKALINE PHOSPHATASE 177 U/L (38-126); ASPARTATE AMINO TRANSFERASE 29 U/L (14-36); BILIRUBIN,DIRECT 0.4 mg/dL (0.0-0.4); BILIRUBIN,TOTAL 0.4 mg/dL (0.2-1.3); BLOOD UREA NITROGEN 17 mg/dL (7-20)
[2018-06-20 17:58] LABS: ERYTHROCYTE SEDIMENTATION RATE 40 mm/hr (0-30)
== END ==
LOC: LAB 17:11
PROVIDERS: ATTEND Physician Assistant Medical
DX: R53.83 Other fatigue (principal); R23.3 Spontaneous ecchymoses; E11.9 Type 2 diabetes mellitus without complications; I50.9 Heart failure, unspecified
CPT/HCPCS: 36415; 80053; 85025; 85652

== ENCOUNTER → 2018-07-23 | Outpatient (CLI) | payer MEDICARE, MEDICAID ==
--- NOTE | 2018-07-25 10:18 | WOMENS IMAGING REPORT ---
EXAM DESCRIPTION: 3D SCREENING MAMMO BILAT COMPLETED DATE/TIME: 07/23/2018 3:01 pm REASON FOR STUDY: SCREENING MAMMO Z12.31 ENCNTR SCREEN MAMMOGRAM FOR MALIGNANT NEOPLASM OF JOSE COMPARISON: 2015 TECHNIQUE: Standard craniocaudal and mediolateral oblique views of each breast recorded using digita l acquisition and breast tomosynthesis. LIMITATIONS: None. FINDINGS: No masses, calcifications or architectural distortion. No areas of suspicion. Read with the assistance of CAD. .[facility] - R2 Cenova Version 1.3 .[facility] - R2 Cenova Version 1.3 .[facility] - R2 Cenova Version 2.4 .[facility] - R2 Cenova Version 2.4 .[facility] - R2 Production Reproduction Manager Version 9.2 IMPRESSION: NORMAL MAMMOGRAM. BIRADS 1. BREAST DENSITY: b. There are scattered areas of fibroglandular density. BIRAD: 1 NEGATIVE RECOMMENDATION: ROUTINE SCREENING Please continue yearly bilateral screening tomosynthesis in July 2019 COMMENT: Please continue yearly bilateral screening tomosynthesis in July 2019 The patient has been notified of the results by letter per [place] requirements. Additional notification policies are in place for contacting patient with suspicious or incomplete findings. Quality ID #[id number]: The [employer] recommends an annual screening mammogram for women aged 40 years or over. This facility utilizes a reminder system to ensure that all patients receive reminder letters, and/or direct phone calls for appointments. This includes reminders for routine scr eening mammograms, diagnostic mammograms, or other Breast Imaging Interventions when appropriate. Th is patient will be placed in the appropriate reminder system. The [employer] (ACR) has developed recommendations for screening MRI of the breast s in certain patient populations, to be used in conjunction with mammography. Breast MRI surveillanc e may be appropriate for women with more than 20% lifetime risk of developing breast cancer as deter mined by genetic testing, significant family history of the disease, or history of mantle radiation f or Hodgkins Disease. ACR Practice Guidelines 2008. DBT Technology DBT is a type of tomographic mammography. With conventional mammography, overlapping breast tissue ma y make lesions difficult to detect, even with good compression. DBT uses an x-ray tube that rotates a round the breast, taking images at different angles. These images are then combined to create thin sl ices of the breast that the radiologist can view as a 3D reconstruction. The [employer] unit can perform full-field digital mammograms (2D imaging); or DBT (3D imaging); or both, in a combination mode that quickly performs both the mammogram and the tomosynthesis scan while the breast is still compressed. PQRS 6045F: Fluoroscopic imaging is not utilized for breast tomosynthesis. TECHNICAL DOCUMENTATION: FINDING NUMBER: (1) ASSESSMENT: (1) JOB ID: [id number] [employer]- All Rights Reserved Reading location - IP/workstation name: [email or web address]
== END ==
LOC: WI 14:54
PROVIDERS: ATTEND Family Medicine
DX: Z12.31 Encounter for screening mammogram for malignant neoplasm of breast (principal)
CPT/HCPCS: 77063; 77067

== ENCOUNTER 2018-09-03 08:06 | Emergency (ER) | payer MEDICARE, MEDICAID ==
[2018-09-03] MEDS ORDERED: MECLIZINE HCL 25 MG TABLET PO ONE (08:28)
--- NOTE | 2018-09-03 08:29 | ER Document Report ---
ED General - General Chief Complaint: Dizziness Stated Complaint: VERTIGO Time Seen by Provider: 09/03/18 08:14 Notes: Patient is a 53-year-old female with history of vertigo that presents to the emergency department for chief complaint of dizziness. Patient states that she is had vertigo for some time, and she does get dizzy spells, she had another one this morning, that led to a fall and she hit her head. She is on Eliquis for atrial fibrillation. She states that when she is walking she will occasionally get off balance which is what happened this morning. She also fell yesterday while she was at [facility], and she hit her ahead at that time but did not seek medical attention. She denies having any headache at this time, just describes being off balance, and feeling dizzy. She states usually her son can help her up, but today because he has had issues with his back he was not able to so they called EMS. She denies having any pain in her legs, numbness, tingling or weakness in any extremity. Denies having any slurred speech, or change in her vision. Past Medical History: Atrial fibrillation, on Eliquis, vertigo, diabetes mellitus, hyperlipidemia Past Surgical History: , cataract surgery, toe amputation, cholecystectomy Social History: Denies current tobacco, alcohol or drug use Family History: Reviewed and noncontributory for presenting illness Allergies: Reviewed, see documented allergy list. REVIEW OF SYSTEMS: Unless otherwise stated in this report the patient's positive and negative responses for review of systems for constitutional, eyes, ENT, cardiovascular, respiratory, gastrointestinal, neurological, genitourinary, musculoskeletal, and integumentary systems and related systems to the presenting problem are either as stated in the HPI or were not pertinent or were negative for the symptoms and/or complaints related to the presenting medical problem. PHYSICAL EXAMINATION: Vital signs reviewed, nursing noted reviewed. GENERAL: Well-appearing, well-nourished and in no acute distress. HEAD: Atraumatic, normocephalic. EYES: Eyes appear normal, extraocular movements intact, sclera anicteric, conjunctiva are normal. She is noted to have horizontal nystagmus with gaze to the right, that is fatigable ENT: nares patent, oropharynx clear without exudates. Moist mucous membranes. NECK: Normal range of motion, supple without lymphadenopathy LUNGS: Breath sounds clear to auscultation bilaterally and equal. No wheezes rales or rhonchi. HEART: Regular rate and rhythm without murmurs ABDOMEN: Soft, nontender, normoactive bowel sounds. No rebound, guarding, or rigidity. No masses appreciated. EXTREMITIES: Nontender, good range of motion, no pitting or edema. NEUROLOGICAL: No focal neurological deficits. Moves all extremities spontaneously Motor and sensory grossly intact on exam. NIH stroke scale score : 0, finger nose finger testing is normal, heel kidd testing is negative. PSYCH: Normal mood, normal affect. SKIN: Warm, Dry, normal turgor, no rashes or lesions noted on exposed skin TRAVEL OUTSIDE OF THE [place] IN LAST 30 DAYS: No - Related Data Allergies/Adverse Reactions: bismuth subsalicylate [From Pepto-Bismol] Allergy (Severe, Verified 02/02/15 10: 48) VOMITING ciprofloxacin [From Cipro] Adverse Reaction (Intermediate, Verified 03/10/16 10: 04) Dizziness/nasea Past Medical History - Social History Smoking Status: Never Smoker Family History: Arthritis, CAD, CVA, DM, Hyperlipidemia, Hypertension - Past Medical History Cardiac Medical History: Reports: Hx Atrial Fibrillation, Hx Hypercholesterolemia, Hx Hypertension - medicated Denies: Hx Coronary Artery Disease, Hx Heart Attack Pulmonary Medical History: Reports: Hx Bronchitis Denies: Hx Asthma Neurological Medical History: Denies: Hx Cerebrovascular Accident, Hx Seizures Endocrine Medical History: Reports: Hx Diabetes Mellitus Type 1, Hx Diabetes Mellitus Type 2 Renal/ Medical History: Denies: Hx Peritoneal Dialysis GI Medical History: Reports: Hx Diverticulitis, Hx Gastritis, Hx Gastroesophageal Reflux Disease, Hx Hiatal Hernia, Hx Irritable Bowel. Denies: Hx Hepatitis, Hx Ulcer Musculoskeletal Medical History: Reports Hx Arthritis, Reports Hx Musculoskeletal Deformity, Reports Hx Musculoskeletal Trauma Skin Medical History: Reports Hx Cellulitis Traumatic Medical History: Reports: Hx Fractures - foot Infectious Medical History: Denies: Hx Hepatitis, Hx MRSA, Hx VRE Past Surgical History: Reports: Hx Section, Hx Cholecystectomy, Hx Neurologic Surgery - nerve release right foot, Hx Oral Surgery, Hx Orthopedic Surgery. Denies: Hx Hysterectomy, Hx Mastectomy, Hx Open Heart Surgery, Hx Pacemaker - Immunizations Immunizations up to date: Yes Hx Diphtheria, Pertussis, Tetanus Vaccination: Yes Physical Exam - Vital signs Vitals: Pulse Ox 83 L 09/03/18 08:28 Course - Re-evaluation Re-evalutation: Patient seen and examined vital signs reviewed. Patient's initial recorded vital sign in the computer was 83% pulse ox, 1 minute later this was 100%, on room air, this was recorded as a poor wavelength, patient was never hypoxic during her entire ED course, did not require oxygen therapy. Laboratory data and imaging were ordered as appropriate for the patient's presenting symptoms and complaint, with consideration of any critical or life threatening conditions that may be associated with their obtained history and exam as noted above. Patient was treated with meclizine Results were reviewed when available and demonstrated negative CT of the head, cervical spine, and unremarkable blood work, EKG unchanged from prior The patient was re-evaluated and was improved and stable, no vertiginous symptoms Evaluation was most consistent with peripheral vertigo, and closed head injury on anticoagulation, will discharge the patient home, to follow-up with her primary care, given prescription for meclizine, she was offered a wheeled walker prescription, but patient declined at this time, electing to use her four -point cane. Results were discussed with the patient at this point, after careful consideration I feel that that patient can be discharged from the emergency department, the patient was educated treatments and reasons to return to the emergency department based on their presumed diagnosis as noted above, they were advised to followup with a primary care physician in 2-3 days. Patient was agreeable to plan of care. *Note is created using voice recognition software and may contain spelling, syntax or grammatical errors. Laboratory 09/03/18 09/03/18 08:48 08:48 WBC 9.0 RBC 4.58 Hgb 12.9 Hct 37.7 MCV 82 MCH 28.2 MCHC 34.2 RDW 15.7 H Plt Count 327 Seg Neutrophils % 68.9 Lymphocytes % 20.8 Monocytes % 7.0 Eosinophils % 2.9 Basophils % 0.4 Absolute Neutrophils 6.2 Absolute Lymphocytes 1.9 Absolute Monocytes 0.6 Absolute Eosinophils 0.3 Absolute Basophils 0.0 Sodium 139.3 Potassium 4.6 Chloride 99 Carbon Dioxide 31 H Anion Gap 9 BUN 24 H Creatinine 1.17 Est GFR ( Amer) 59 L Est GFR (Non-Af Amer) 49 L Glucose 78 Calcium 9.7 Total Bilirubin 0.5 Direct Bilirubin 0.2 Neonat Total Bilirubin Not Reportable Neonat Direct Bilirubin Not Reportable Neonat Indirect Bili Not Reportable AST 33 ALT 41 Alkaline Phosphatase 177 H Creatine Kinase 69 Total Protein 7.0 Albumin 4.0 Chest X-Ray 09/03/18 08:14 IMPRESSION: NO ACUTE RADIOGRAPHIC FINDING IN THE CHEST. Cervical Spine CT 09/03/18 08:15 IMPRESSION: CHRONIC DEGENERATIVE CHANGES. NO ACUTE FINDINGS. Head CT 09/03/18 08:15 IMPRESSION: NORMAL BRAIN CT WITHOUT CONTRAST. EVIDENCE OF ACUTE STROKE: NO. - Vital Signs Vital signs: Temp Pulse Resp BP Pulse Ox 97.6 F 88 10 L 100/68 96 09/03/18 08:29 09/03/18 09:00 09/03/18 11:01 09/03/18 11:01 09/03/18 11:01 - Laboratory Result Diagrams: 09/03/18 08:48 09/03/18 08:48 Laboratory results interpreted by me: 09/03/18 09/03/18 08:48 08:48 RDW 15.7 H Carbon Dioxide 31 H BUN 24 H Est GFR ( Amer) 59 L Est GFR (Non-Af Amer) 49 L Alkaline Phosphatase 177 H - EKG Interpretation by Me Additional EKG results interpreted by me: EKG demonstrates sinus rhythm with first-degree AV block and presence of left bundle branch block with a ventricular rate of 77 bpm, left axis deviation, normal intervals, there is slight ST depressions in leads I and aVL, this compared with prior EKG from 07/19/2015 without significant change. Discharge - Discharge Clinical Impression: Dizziness Closed head injury Qualifiers: Encounter type: initial encounter Qualified Code(s): S09.90XA - Unspecified injury of head, initial encounter Fall Qualifiers: Encounter type: initial encounter Qualified Code(s): W19.XXXA - Unspecified fall, initial encounter Condition: Stable Disposition: HOME, SELF-CARE Instructions: Meclizine ([facility]), Vertigo ([facility]) Additional Instructions: Please return to the emergency department if you have any worsening, or concern of your symptoms. Please return to the emergency department if you develop chest pain, difficulty breathing, severe abdominal pain, or ongoing vomiting. Please follow-up with your primary care physician in 2-3 days and any other recommended physicians. If prescribed, take all medications as directed. If you have any questions or concerns do not hesitate to return the emergency department for evaluation. Prescriptions: Meclizine HCl 25 mg PO Q6H PRN #15 tablet PRN Reason: Dizziness Referrals: BLAISE RAMÍREZ PA-C [Primary Care Provider] - Follow up in 3-5 days
[2018-09-03 09:14] LABS: ABSOLUTE EOSINOPHILS # (AUTO) 0.3 10^3/uL (0.0-0.6); ABSOLUTE LYMPHOCYTES (AUTO) 1.9 10^3/uL (0.5-4.7); ABSOLUTE MONOCYTES (AUTO) 0.6 10^3/uL (0.1-1.4); ABSOLUTE NEUT (AUTO) 6.2 10^3/uL (1.7-8.2); BASOPHILS % (AUTO) 0.4 % (0-2); EOSINOPHILS % (AUTO) 2.9 % (0-6); HEMATOCRIT 37.7 % (36.0-47.0); HEMOGLOBIN 12.9 g/dL (12.0-15.5); LYMPHOCYTES % (AUTO) 20.8 % (13-45); MEAN CORPUSCULAR HEMOGLOBIN 28.2 pg (27.0-33.4); MEAN CORPUSCULAR HGB CONC 34.2 g/dL (32.0-36.0); MEAN CORPUSCULAR VOLUME 82 fl (80-97); PLATELET COUNT 327 10^3/uL (150-450); RED BLOOD COUNT 4.58 10^6/uL (3.72-5.28); RED CELL DISTRIBUTION WIDTH 15.7 % (11.5-14.0); SEGMENTED NEUTROPHILS % (AUTO) 68.9 % (42-78); TOTAL CELLS COUNTED % (AUTO) 100 %
--- NOTE | 2018-09-03 09:28 | RADIOLOGY REPORT (SQ) ---
EXAM DESCRIPTION: CHEST 2 VIEWS COMPLETED DATE/TIME: 09/03/2018 9:14 am REASON FOR STUDY: VERTIGO COMPARISON: 05/25/2016 EXAM PARAMETERS: NUMBER OF VIEWS: two views TECHNIQUE: Digital Frontal and Lateral radiographic views of the chest acquired. RADIATION DOSE: NA LIMITATIONS: none FINDINGS: LUNGS AND PLEURA: No opacities, masses or pneumothorax. No pleural effusion. MEDIASTINUM AND HILAR STRUCTURES: No masses or contour abnormalities. HEART AND VASCULAR STRUCTURES: Heart normal size. No evidence for failure. BONES: No acute findings. HARDWARE: None in the chest. OTHER: No other significant finding. IMPRESSION: NO ACUTE RADIOGRAPHIC FINDING IN THE CHEST. TECHNICAL DOCUMENTATION: JOB ID: [id number] [employer]- All Rights Reserved Reading location - IP/workstation name: [email or web address]
--- NOTE | 2018-09-03 09:29 | RADIOLOGY REPORT (SQ) ---
EXAM DESCRIPTION: CT HEAD WITHOUT COMPLETED DATE/TIME: 09/03/2018 9:15 am REASON FOR STUDY: FALL, HEAD INJURY, VERTIGO COMPARISON: 10/20/2014 TECHNIQUE: Axial images acquired through the brain without intravenous contrast. Images reviewed wi th bone, brain and subdural windows. Additional sagittal and coronal reconstructions were generated. Images stored on PACS. All CT scanners at this facility use dose modulation, iterative reconstruction, and/or weight based d osing when appropriate to reduce radiation dose to as low as reasonably achievable (ALARA). [facility]: Dose Right [facility]: CareDose [facility]: Dose Right [facility]: Teradose 4D [facility]: Tact[employer]ize RADIATION DOSE: CT Rad equipment meets quality standard of care and radiation dose reduction techniq ues were employed. CTDIvol: 53.2 mGy. DLP: 1044 mGy-cm. mGy. LIMITATIONS: None. FINDINGS: VENTRICLES: Normal size and contour. CEREBRUM: No masses. No hemorrhage. No midline shift. No evidence for acute infarction. Normal gra y/white matter differentiation. No areas of low density in the white matter. CEREBELLUM: No masses. No hemorrhage. No alteration of density. No evidence for acute infarction. EXTRAAXIAL SPACES: No fluid collections. No masses. ORBITS AND GLOBE: No intra- or extraconal masses. Normal contour of globe without masses. CALVARIUM: No fracture. PARANASAL SINUSES: No fluid or mucosal thickening. SOFT TISSUES: No mass or hematoma. OTHER: No other significant finding. IMPRESSION: NORMAL BRAIN CT WITHOUT CONTRAST. EVIDENCE OF ACUTE STROKE: NO. COMMENT: Quality ID # [id number]: Final reports with documentation of one or more dose reduction techniques (e.g., Automated exposure control, adjustment of the mA and/or kV according to patient size, use of iterative reconstruction technique) TECHNICAL DOCUMENTATION: JOB ID: [id number] [employer]- All Rights Reserved Reading location - IP/workstation name: [email or web address]
--- NOTE | 2018-09-03 09:30 | RADIOLOGY REPORT (SQ) ---
EXAM DESCRIPTION: CT CERVICAL SPINE WITHOUT COMPLETED DATE/TIME: 09/03/2018 9:15 am REASON FOR STUDY: FALL, HEAD INJURY COMPARISON: None. TECHNIQUE: Axial images acquired through the cervical spine without intravenous contrast. Images re viewed with lung, soft tissue and bone windows. Reconstructed coronal and sagittal MPR images review ed. Images stored on PACS. All CT scanners at this facility use dose modulation, iterative reconstruction, and/or weight based d osing when appropriate to reduce radiation dose to as low as reasonably achievable (ALARA). [facility]: Dose Right [facility]: CareDose [facility]: Dose Right [facility]: Teradose 4D [facility]: [employer] RADIATION DOSE: CT Rad equipment meets quality standard of care and radiation dose reduction techniq ues were employed. CTDIvol: 39.2 mGy. DLP: 736 mGy-cm. mGy. LIMITATIONS: None. FINDINGS: ALIGNMENT: Anatomic. MINERALIZATION: Normal. VERTEBRAL BODIES: No fractures or dislocation. DISCS: Multilevel disc space narrowing with osteophytes. FACETS, LATERAL MASSES, POSTERIOR ELEMENTS: Facet arthropathy. No fractures. No dislocation. No ac [place] findings. HARDWARE: None in the spine. VISUALIZED RIBS: No fractures. LUNG APICES AND SOFT TISSUES: There ground-glass opacities in the upper lobes which may represent ate lectasis. OTHER: No other significant finding. IMPRESSION: CHRONIC DEGENERATIVE CHANGES. NO ACUTE FINDINGS. TECHNICAL DOCUMENTATION: JOB ID: [id number] Quality ID # [id number]: Final reports with documentation of one or more dose reduction techniques (e.g., Au tomated exposure control, adjustment of the mA and/or kV according to patient size, use of iterative reconstruction technique) 2010 [employer]- All Rights Reserved Reading location - IP/workstation name: [email or web address]
[2018-09-03 09:34] LABS: ALANINE AMINOTRANSFERASE 41 U/L (9-52); ALKALINE PHOSPHATASE 177 U/L (38-126); ANION GAP 9 (5-19); ASPARTATE AMINO TRANSFERASE 33 U/L (14-36); BILIRUBIN,DIRECT 0.2 mg/dL (0.0-0.4); BILIRUBIN,TOTAL 0.5 mg/dL (0.2-1.3); BLOOD UREA NITROGEN 24 mg/dL (7-20); CALCIUM 9.7 mg/dL (8.4-10.2); CARBON DIOXIDE 31 mmol/L (22-30); CHLORIDE 99 mmol/L (98-107); CREATINE KINASE 69 U/L (30-135); GLUCOSE 78 mg/dL (75-110); POTASSIUM 4.6 mmol/L (3.6-5.0); SODIUM 139.3 mmol/L (137-145)
[2018-09-03 11:46] VITALS: BP 100/68
--- NOTE | 2018-09-03 12:56 | EKG REPORT ---
SEVERITY:- ABNORMAL ECG - SINUS RHYTHM FIRST DEGREE AV BLOCK LEFT BUNDLE BRANCH BLOCK : Confirmed by: Anastacio Chandra MD 03-Sep-2018 12:56:16
== END 2018-09-03 12:00 | disposition home or self-care (01) ==
LOC: ER 08:06
DX: R42 Dizziness and giddiness (principal); S09.90XA Unspecified injury of head, initial encounter; W19.XXXA Unspecified fall, initial encounter; I48.91 Unspecified atrial fibrillation; Z79.01 Long term (current) use of anticoagulants; E11.9 Type 2 diabetes mellitus without complications; I10 Essential (primary) hypertension; M47.9 Spondylosis, unspecified; I44.0 Atrioventricular block, first degree; I44.7 Left bundle-branch block, unspecified
CPT/HCPCS: 93005; 99285; 36415; 82550; 85025; 80053; 71046; 70450; 72125; 93010; A9270

== ENCOUNTER 2018-09-11 14:40 | Emergency (ER) | payer MEDICARE, MEDICAID ==
[2018-09-11] MEDS ORDERED: TRAMADOL HCL 50 MG TABLET PO ONE ×2 (16:00→19:08)
[2018-09-11] MEDS ORDERED: ACETAMINOPHEN 325 MG TABLET PO ONE (16:00)
[2018-09-11] MEDS ORDERED: IBUPROFEN 600 MG TABLET PO ONE (16:00)
--- NOTE | 2018-09-11 16:52 | RADIOLOGY REPORT (SQ) ---
EXAM DESCRIPTION: KNEE LEFT 3 VIEWS COMPLETED DATE/TIME: 09/11/2018 4:40 pm REASON FOR STUDY: fall pain fell 1 week ago, anterior knee pain COMPARISON: Left knee four views 12/29/2007 NUMBER OF VIEWS: Three views. TECHNIQUE: AP, lateral, and sunrise patella radiographic images acquired of the left knee. LIMITATIONS: None. FINDINGS: MINERALIZATION: Osteopenic BONES: No acute fracture or dislocation. No worrisome bone lesions. JOINT: Moderate patellofemoral joint space narrowing with mild lateral subluxation of patella on the sunrise view. SOFT TISSUES: No soft tissue swelling. No radio-opaque foreign body. OTHER: No other significant finding. IMPRESSION: Patellofemoral joint osteoarthritis TECHNICAL DOCUMENTATION: JOB ID: [id number] [employer]- All Rights Reserved Reading location - IP/workstation name: [email or web address]
--- NOTE | 2018-09-11 19:11 | ER Document Report ---
ED General - General Chief Complaint: Leg Pain Stated Complaint: FALL/LEG PAIN Time Seen by Provider: 09/11/18 15:59 TRAVEL OUTSIDE OF THE [place]. IN LAST 30 DAYS: No - HPI Patient complains to provider of: Left knee pain leg swelling Notes: Patient coming of multiple falls prior to her visit todayleft knee pain and swelling of the leg. Patient denies any fever chills nausea vomiting diarrhea. Patient was to be no distress upon my evaluation. - Related Data Allergies/Adverse Reactions: bismuth subsalicylate [From Pepto-Bismol] Allergy (Severe, Verified 09/11/18 15: 39) VOMITING ciprofloxacin [From Cipro] Adverse Reaction (Intermediate, Verified 09/11/18 15: 39) Dizziness/nasea Past Medical History - Social History Smoking Status: Never Smoker Chew tobacco use (# tins/day): No Frequency of alcohol use: None Drug Abuse: None Family History: Arthritis, CAD, CVA, DM, Hyperlipidemia, Hypertension Patient has suicidal ideation: No Patient has homicidal ideation: No - Past Medical History Cardiac Medical History: Reports: Hx Atrial Fibrillation, Hx Hypercholesterolemia, Hx Hypertension - medicated Denies: Hx Coronary Artery Disease, Hx Heart Attack Pulmonary Medical History: Reports: Hx Bronchitis Denies: Hx Asthma Neurological Medical History: Denies: Hx Cerebrovascular Accident, Hx Seizures Endocrine Medical History: Reports: Hx Diabetes Mellitus Type 1, Hx Diabetes Mellitus Type 2 Renal/ Medical History: Denies: Hx Peritoneal Dialysis GI Medical History: Reports: Hx Diverticulitis, Hx Gastritis, Hx Gastroesophageal Reflux Disease, Hx Hiatal Hernia, Hx Irritable Bowel. Denies: Hx Hepatitis, Hx Ulcer Musculoskeletal Medical History: Reports Hx Arthritis, Reports Hx Musculoskeletal Deformity, Reports Hx Musculoskeletal Trauma Skin Medical History: Reports Hx Cellulitis Traumatic Medical History: Reports: Hx Fractures - foot Infectious Medical History: Denies: Hx Hepatitis, Hx MRSA, Hx VRE Past Surgical History: Reports: Hx Section, Hx Cholecystectomy, Hx Neurologic Surgery - nerve release right foot, Hx Oral Surgery, Hx Orthopedic Surgery - 3rd toe on right foot amputated. Denies: Hx Hysterectomy, Hx Mastectomy, Hx Open Heart Surgery, Hx Pacemaker - Immunizations Immunizations up to date: Yes Hx Diphtheria, Pertussis, Tetanus Vaccination: Yes Review of Systems - Review of Systems Constitutional: No symptoms reported EENT: No symptoms reported Cardiovascular: No symptoms reported Respiratory: No symptoms reported Gastrointestinal: No symptoms reported Genitourinary: No symptoms reported Female Genitourinary: No symptoms reported Musculoskeletal: Other - Knee pain leg swelling Skin: No symptoms reported Hematologic/Lymphatic: No symptoms reported Neurological/Psychological: No symptoms reported -: Yes All other systems reviewed and negative Physical Exam - Vital signs Vitals: Temp Pulse Resp BP Pulse Ox 98.5 F 86 16 151/79 H 97 09/11/18 14:51 09/11/18 14:51 09/11/18 14:51 09/11/18 14:51 09/11/18 14:51 Interpretation: Normal - General General appearance: Appears well, Alert - HEENT Head: Normocephalic, Atraumatic Eyes: Normal Pupils: PERRL - Respiratory Respiratory status: No respiratory distress Chest status: Nontender Breath sounds: Normal Chest palpation: Normal - Cardiovascular Rhythm: Regular Heart sounds: Normal auscultation Murmur: No - Abdominal Inspection: Normal Distension: No distension Bowel sounds: Normal Tenderness: Nontender Organomegaly: No organomegaly - Back Back: Normal, Nontender - Extremities General upper extremity: Normal inspection, Nontender, Normal color, Normal ROM , Normal temperature General lower extremity: Normal inspection, Edema - Bilateral edema 3+ left leg 2+ right leg, Normal color, Normal temperature. No: Nontender - Diffuse tenderness to palpation of the left knee - Neurological Neuro grossly intact: Yes Cognition: Normal Orientation: AAOx4 [place] Coma Scale Eye Opening: Spontaneous [place] Coma Scale Verbal: Oriented [place] Coma Scale Motor: Obeys Commands Chuy Coma Scale Total: 15 Speech: Normal Motor strength normal: LUE, RUE, LLE, RLE Sensory: Normal - Psychological Associated symptoms: Normal affect, Normal mood - Skin Skin Temperature: Warm Skin Moisture: Dry Skin Color: Normal Course - Re-evaluation Re-evalutation: 09/11/18 21:01 X-ray shows diffuse arthritis of the left knee with a negative Doppler for DVT. Patient more likely experience a strain or sprain. Patient will be given an Sinan bandage to help wrap her leg at home patient also will be given pain medication patient is to follow-up with PCP patient is to elevate her leg while at home - Vital Signs Vital signs: Temp Pulse Resp BP Pulse Ox 98.3 F 84 18 148/72 H 98 09/11/18 19:14 09/11/18 19:14 09/11/18 19:14 09/11/18 19:14 09/11/18 19:14 Discharge - Discharge Clinical Impression: Left leg pain, Left leg swelling Condition: Good Disposition: HOME, SELF-CARE Instructions: Dependent Edema ([facility]), Elevate the Injury ([facility]), Elevation & Warmth ([facility]), Oral Narcotic Medication ([facility]) Additional Instructions: X-ray today shows diffuse osteoarthritis of the left knee more likely exacerbated by recent fall pain also possibly underlying strain or sprain ultrasounds negative for any signs of DVT. I would highly recommend she follow- up with your primary care physician return to ER symptoms worsen. May use Sinan wrap at home to help support the knee with recommend continue take Tylenol or Motrin for pain control. Prescriptions: Tramadol HCl [Ultram 50 mg Tablet] 50 mg PO ASDIR PRN #20 tablet PRN Reason: Referrals: BLAISE RAMÍREZ PA-C [NO LOCAL MD] - Follow up as needed
[2018-09-11 19:14] VITALS: BP 148/72
--- NOTE | 2018-09-11 21:15 | RADIOLOGY REPORT (SQ) ---
US EXTREMITY VEINS UNILATERAL HISTORY: Leg pain and swelling. COMPARISON: None. TECHNIQUE: Grayscale, color Doppler, and spectral Doppler images of the left lower extremity were performed. FINDINGS: The common femoral, superficial femoral and popliteal veins are patent and compressible. Normal augmentation and color Doppler blood flow in the aforementioned veins. The visualized calf veins are also patent. IMPRESSION: No evidence of DVT in the left lower extremity.
== END 2018-09-11 19:13 | disposition home or self-care (01) ==
LOC: ER 14:40
DX: M25.562 Pain in left knee (principal); M79.89 Other specified soft tissue disorders; I10 Essential (primary) hypertension; Z79.899 Other long term (current) drug therapy; E11.9 Type 2 diabetes mellitus without complications
CPT/HCPCS: 99284; 93971; 73562; A9270 ×3

== ENCOUNTER → 2018-10-08 | Outpatient (CLI) | payer MEDICARE, MEDICAID ==
[2018-10-08 14:35] LABS: ABSOLUTE EOSINOPHILS # (AUTO) 0.3 10^3/uL (0.0-0.6); ABSOLUTE LYMPHOCYTES (AUTO) 1.9 10^3/uL (0.5-4.7); ABSOLUTE MONOCYTES (AUTO) 0.6 10^3/uL (0.1-1.4); ABSOLUTE NEUT (AUTO) 4.4 10^3/uL (1.7-8.2); BASOPHILS % (AUTO) 0.5 % (0-2); EOSINOPHILS % (AUTO) 4.4 % (0-6); HEMATOCRIT 34.2 % (36.0-47.0); HEMOGLOBIN 11.4 g/dL (12.0-15.5); LYMPHOCYTES % (AUTO) 26.1 % (13-45); MEAN CORPUSCULAR HEMOGLOBIN 27.3 pg (27.0-33.4); MEAN CORPUSCULAR HGB CONC 33.3 g/dL (32.0-36.0); MEAN CORPUSCULAR VOLUME 82 fl (80-97); MONOCYTES % (AUTO) 8.8 % (3-13); PLATELET COUNT 307 10^3/uL (150-450); RED BLOOD COUNT 4.17 10^6/uL (3.72-5.28); RED CELL DISTRIBUTION WIDTH 16.1 % (11.5-14.0); SEGMENTED NEUTROPHILS % (AUTO) 60.2 % (42-78); TOTAL CELLS COUNTED % (AUTO) 100 %; WHITE BLOOD COUNT 7.3 10^3/uL (4.0-10.5)
[2018-10-08 15:07] LABS: ALANINE AMINOTRANSFERASE 22 U/L (9-52); ALBUMIN 3.9 g/dL (3.5-5.0); ALKALINE PHOSPHATASE 159 U/L (38-126); ANION GAP 11 (5-19); ASPARTATE AMINO TRANSFERASE 30 U/L (14-36); BILIRUBIN,DIRECT 0.2 mg/dL (0.0-0.4); BILIRUBIN,TOTAL 0.2 mg/dL (0.2-1.3); BLOOD UREA NITROGEN 19 mg/dL (7-20); CALCIUM 9.9 mg/dL (8.4-10.2); CARBON DIOXIDE 33 mmol/L (22-30); CHLORIDE 100 mmol/L (98-107); GLUCOSE 106 mg/dL (75-110); POTASSIUM 4.9 mmol/L (3.6-5.0); SODIUM 143.5 mmol/L (137-145); TOTAL PROTEIN 6.8 g/dL (6.3-8.2)
== END ==
LOC: OD 13:40
PROVIDERS: ATTEND Physician Assistant
DX: E03.9 Hypothyroidism, unspecified (principal); R29.6 Repeated falls
CPT/HCPCS: 36415; 80053; 84443; 85025

== ENCOUNTER 2019-01-13 21:09 | Emergency (ER) | payer MEDICARE, MEDICAID ==
--- NOTE | 2019-01-14 01:06 | ER Document Report ---
ED Medical Screen (RME) - General Chief Complaint: Vertigo Stated Complaint: DIZZYNESS Time Seen by Provider: 01/14/19 00:58 Primary Care Provider: KELLY BARNES PA [Primary Care Provider] - Follow up as needed Notes: 53-year-old female that complains of dizziness with nausea and an episode of vomiting earlier. She states that she was seen by primary care within the past couple of months for the intermittent vertigo she is experiencing, she was supposed to have a CAT scan of the head performed but this has not been performed yet. She states she got worse than usual, fell to the ground landing on her knee mainly on the left, called EMS, EMS assisted her up but she was unsteady, she was given Zofran, she states now she feels much better. She states she still wants to complete the workup. She denies chest pain, lightheadedness, abdominal pain, shortness of breath, fever. She has not on a blood thinner, she denies hitting her head. TRAVEL OUTSIDE OF THE [place] IN LAST 30 DAYS: No - Related Data Allergies/Adverse Reactions: bismuth subsalicylate [From Pepto-Bismol] Allergy (Severe, Verified 09/11/18 15:39) VOMITING ciprofloxacin [From Cipro] Adverse Reaction (Intermediate, Verified 09/11/18 15:39) Dizziness/nasea Past Medical History - Past Medical History Cardiac Medical History: Reports: Hx Atrial Fibrillation, Hx Hypercholesterolemia, Hx Hypertension - medicated Denies: Hx Coronary Artery Disease, Hx Heart Attack Pulmonary Medical History: Reports: Hx Bronchitis Denies: Hx Asthma Neurological Medical History: Denies: Hx Cerebrovascular Accident, Hx Seizures Endocrine Medical History: Reports: Hx Diabetes Mellitus Type 1, Hx Diabetes Mellitus Type 2 Renal/ Medical History: Denies: Hx Peritoneal Dialysis GI Medical History: Reports: Hx Diverticulitis, Hx Gastritis, Hx Gastroesophageal Reflux Disease, Hx Hiatal Hernia, Hx Irritable Bowel. Denies: Hx Hepatitis, Hx Ulcer Musculoskeltal Medical History: Reports Hx Arthritis, Reports Hx Musculoskeletal Deformity, Reports Hx Musculoskeletal Trauma Skin Medical History: Reports Hx Cellulitis Traumatic Medical History: Reports: Hx Fractures - foot Infectious Medical History: Denies: Hx Hepatitis, Hx MRSA, Hx VRE Past Surgical History: Reports: Hx Section, Hx Cholecystectomy, Hx Neurologic Surgery - nerve release right foot, Hx Oral Surgery, Hx Orthopedic Surgery - 3rd toe on right foot amputated. Denies: Hx Hysterectomy, Hx Mast ectomy, Hx Open Heart Surgery, Hx Pacemaker - Immunizations Immunizations up to date: Yes Hx Diphtheria, Pertussis, Tetanus Vaccination: Yes Physical Exam - Vital signs Vitals: Temp Pulse Resp BP Pulse Ox 98.3 F 85 20 99/53 L 99 01/13/19 21:36 01/13/19 21:36 01/13/19 21:36 01/13/19 21:36 01/13/19 21:36 - General General appearance: Appears well In distress: None - Abdominal Inspection: Normal Tenderness: Nontender - Neurological Neuro grossly intact: Yes Cognition: Normal Orientation: AAOx4 Langtry Coma Scale Eye Opening: Spontaneous Chuy Coma Scale Verbal: Oriented Course - Vital Signs Vital signs: Temp Pulse Resp BP Pulse Ox 98.3 F 85 20 99/53 L 99 01/13/19 21:36 01/13/19 21:36 01/13/19 21:36 01/13/19 21:36 01/13/19 21:36 Doctor's Discharge - Discharge Referrals: KELLY BARNES PA [Primary Care Provider] - Follow up as needed
[2019-01-14 01:42] LABS: HEMATOCRIT 39.5 % (36.0-47.0); HEMOGLOBIN 13.3 g/dL (12.0-15.5); MEAN CORPUSCULAR HGB CONC 33.6 g/dL (32.0-36.0); MEAN CORPUSCULAR VOLUME 80 fl (80-97); PLATELET COUNT 341 10^3/uL (150-450); RED BLOOD COUNT 4.91 10^6/uL (3.72-5.28); RED CELL DISTRIBUTION WIDTH 16.3 % (11.5-14.0); WHITE BLOOD COUNT 9.7 10^3/uL (4.0-10.5)
--- NOTE | 2019-01-14 02:00 | RADIOLOGY REPORT (SQ) ---
CLINICAL HISTORY: dizziness, vomited, ataxia COMPARISON: None. 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 FINDINGS: There is no acute hemorrhage, mass effect or midline shift. Leone-white differentiation is preserved. There is no hydrocephalus. There is no significant volume loss for age. The calvarium is intact. Orbits and globes are unremarkable. The paranasal sinuses are clear. Mastoid air cells are clear. IMPRESSION: No acute intracranial findings.
--- NOTE | 2019-01-14 02:05 | RADIOLOGY REPORT (SQ) ---
EXAM DESCRIPTION: XR KNEE 4 OR MORE VIEWS COMPLETED DATE/TME: 01/14/2019 01:05 CLINICAL HISTORY: 53 years, Female, fall, pain COMPARISON: None. NUMBER OF VIEWS: Four TECHNIQUE: Four views of the left knee LIMITATIONS: None. FINDINGS: There is no acute fracture or dislocation. There is an mild medial compartment joint space narrowing with subchondral sclerosis. There is no joint effusion. IMPRESSION: No acute fracture or dislocation copyright 2010 [employer]- All Rights Reserved
--- NOTE | 2019-01-14 04:10 | ER Document Report ---
ED General - General Chief Complaint: Vertigo Stated Complaint: DIZZYNESS Time Seen by Provider: 01/14/19 00:58 Primary Care Provider: KELLY BARNES PA [Primary Care Provider] - Follow up as needed Notes: 53-year-old female patient emergency department chief complaint of vertigo. Patient has a long-standing history of vertigo. Takes meclizine. Tonight she began to have a vertigo episode and felt extremely dizzy and had some nausea with that. She states that she is has never had nausea associated with her v ertigo. Said she fell to her knees. Did her knee. Was unable to get back up. Had to call the ambulance. Ambulance brought her here. Currently patient feels much better. Denies any severe headache. Denies any chest pain or shortness of breath. TRAVEL OUTSIDE OF THE [place] IN LAST 30 DAYS: No - HPI Onset: Just prior to arrival Quality of pain: No pain - Related Data Allergies/Adverse Reactions: bismuth subsalicylate [From Pepto-Bismol] Allergy (Severe, Verified 09/11/18 15:39) VOMITING ciprofloxacin [From Cipro] Adverse Reaction (Intermediate, Verified 09/11/18 15:39) Dizziness/nasea Past Medical History - General Information source: Patient - Social History Smoking Status: Never Smoker Frequency of alcohol use: None Drug Abuse: None Lives with: Family Family History: Arthritis, CAD, CVA, DM, Hyperlipidemia, Hypertension - Past Medical History Cardiac Medical History: Reports: Hx Atrial Fibrillation, Hx Hypercholesterolemia, Hx Hypertension - medicated Denies: Hx Coronary Artery Disease, Hx Heart Attack Pulmonary Medical History: Reports: Hx Bronchitis Denies: Hx Asthma Neurological Medical History: Denies: Hx Cerebrovascular Accident, Hx Seizures Endocrine Medical History: Reports: Hx Diabetes Mellitus Type 1, Hx Diabetes Mellitus Type 2 Renal/ Medical History: Denies: Hx Peritoneal Dialysis GI Medical History: Reports: Hx Diverticulitis, Hx Gastritis, Hx Gastroes ophageal Reflux Disease, Hx Hiatal Hernia, Hx Irritable Bowel. Denies: Hx Hepatitis, Hx Ulcer Musculoskeletal Medical History: Reports Hx Arthritis, Reports Hx Musculoskeleta l Deformity, Reports Hx Musculoskeletal Trauma Skin Medical History: Reports Hx Cellulitis Traumatic Medical History: Reports: Hx Fractures - foot Infectious Medical History: Denies: Hx Hepatitis, Hx MRSA, Hx VRE Past Surgical History: Reports: Hx Section, Hx Cholecystectomy, Hx Neurologic Surgery - nerve release right foot, Hx Oral Surgery, Hx Orthopedic Surgery - 3rd toe on right foot amputated. Denies: Hx Hysterectomy, Hx Mastectomy, Hx Open Heart Surgery, Hx Pacemaker - Immunizations Immunizations up to date: Yes Hx Diphtheria, Pertussis, Tetanus Vaccination: Yes Review of Systems - Review of Systems Notes: Constitutional: denies: Chills, Diaphoresis, Fever, Malaise, Weakness EENT: denies: Eye discharge, Blurred vision, Tearing, Double vision, Nose congestion, Nose discharge, Throat swelling, Mouth pain Cardiovascular: denies: Palpitations, Heart racing, Orthopnea, Dyspnea, Chest pain Respiratory: denies: Cough, Hurts to breathe, Wheezing, Shortness of breath Gastrointestinal: denies: Abdominal pain, Diarrhea, Nausea, Vomiting, Black stools, bright red blood in stool Genitourinary: denies: Burning, Dysuria, Discharge, Frequency, Flank pain, Hematuria Musculoskeletal: denies: Joint pain, Joint swelling, Muscle pain, Muscle stiff ness, back pain. Positive knee pain. Hematologic/Lymphatic: denies: Anemia, Easy bleeding, Easy bruising, Blood clots Neurological/Psychological: denies: Confusion, Dementia, Depression, Loss of c onsciousness. Positive for dizziness Skin: No lesions, no masses, no skin breakdown, no abscesses Physical Exam - Vital signs Vitals: Temp Pulse Resp BP Pulse Ox 98.3 F 85 20 99/53 L 99 01/13/19 21:36 01/13/19 21:36 01/13/19 21:36 01/13/19 21:36 01/13/19 21:36 Interpretation: Normal - General General appearance: Appears well, Alert - HEENT Head: Normocephalic, Atraumatic Eyes: Normal Pupils: PERRL - Respiratory Respiratory status: No respiratory distress Chest status: Nontender Breath sounds: Normal Chest palpation: Normal - Cardiovascular Rhythm: Regular Heart sounds: Normal auscultation Murmur: No - Abdominal Inspection: Normal Distension: No distension Bowel sounds: Normal Tenderness: Nontender Organomegaly: No organomegaly - Back Back: Normal, Nontender - Extremities General upper extremity: Normal inspection, Nontender, Normal color, Normal ROM, Normal temperature General lower extremity: Normal inspection, Nontender, Normal color, Normal ROM, Normal temperature. No: Porter's sign - Neurological Neuro grossly intact: Yes Cognition: Normal Orientation: AAOx4 Chuy Coma Scale Eye Opening: Spontaneous Chuy Coma Scale Verbal: Oriented Ruth Coma Scale Motor: Obeys Commands Ruth Coma Scale Total: 15 Speech: Normal Motor strength normal: LUE, RUE, LLE, RLE Sensory: Normal - Psychological Associated symptoms: Normal affect, Normal mood - Skin Skin Temperature: Warm Skin Moisture: Dry Skin Color: Normal Course - Re-evaluation Re-evalutation: 01/14/19 06:13 Laboratory 01/14/19 01/14/19 01/14/19 01:28 01:28 05:22 WBC 9.7 RBC 4.91 Hgb 13.3 Hct 39.5 MCV 80 MCH 27.0 MCHC 33.6 RDW 16.3 H Plt Count 341 Sodium Cancelled 140.7 Potassium Cancelled 3.8 Chloride Cancelled 102 Carbon Dioxide Cancelled 30 Anion Gap Cancelled 9 BUN Cancelled 15 Creatinine Cancelled 1.51 H Est GFR ( Amer) Cancelled 44 L Est GFR (Non-Af Amer) Cancelled 36 L Glucose Cancelled 85 Calcium Cancelled 9.9 Troponin I 01/14/19 05:22 WBC RBC Hgb Hct MCV MCH MCHC RDW Plt Count Sodium Potassium Chloride Carbon Dioxide Anion Gap BUN Creatinine Est GFR ( Amer) Est GFR (Non-Af Amer) Glucose Calcium Troponin I < 0.[address] 01/14/19 01:05 IMPRESSION: No acute intracranial findings. Knee X-Ray 01/14/19 01:05 IMPRESSION: No acute fracture or dislocation copyright 2011 [employer]- All Rights Reserved 01/14/19 06:13 X-ray, CT scan, labs fairly unremarkable. Mild dehydration on labs so we will give a liter of fluid. Patient is asymptomatic at this time. EKG unchanged from prior. Unlikely this represents a myocardial issue. Troponin was negative. Will DC after fluids. More likely this represents a vertigo - Vital Signs Vital signs: Temp Pulse Resp BP Pulse Ox 98.3 F 85 12 119/69 98 01/13/19 21:36 01/13/19 21:36 01/14/19 05:01 01/14/19 05:01 01/14/19 05:01 - Laboratory Result Diagrams: 01/14/19 01:28 01/14/19 05:22 Laboratory results interpreted by me: 01/14/19 01/14/19 01:28 05:22 RDW 16.3 H Creatinine 1.51 H Est GFR ( Amer) 44 L Est GFR (Non-Af Amer) 36 L Discharge - Discharge Clinical Impression: Vertigo Condition: Good Disposition: HOME, SELF-CARE Instructions: Vertigo ([facility]) Additional Instructions: In the event that you develop any chest pain, worsening symptoms, shortness of breath, severe headache, fever or other symptoms please return for repeat evaluation. Take your meclizine. Follow-up with your regular doctor. Make sure you are drinking plenty of fluids as your labs showed he may actually have some mild dehydration. Referrals: KELLY BARNES PA [Primary Care Provider] - Follow up as needed
[2019-01-14 05:49] LABS: ANION GAP 9 (5-19); BLOOD UREA NITROGEN 15 mg/dL (7-20); CALCIUM 9.9 mg/dL (8.4-10.2); CARBON DIOXIDE 30 mmol/L (22-30); CHLORIDE 102 mmol/L (98-107); GLUCOSE 85 mg/dL (75-110); POTASSIUM 3.8 mmol/L (3.6-5.0); SODIUM 140.7 mmol/L (137-145)
[2019-01-14] MEDS ORDERED: NORMAL SALINE 1000 ML 1,000 ML IV ONE (06:12)
[2019-01-14 06:36] VITALS: BP 102/61
--- NOTE | 2019-01-15 09:29 | EKG REPORT ---
SEVERITY:- ABNORMAL ECG - SINUS RHYTHM FIRST DEGREE AV BLOCK LEFT BUNDLE BRANCH BLOCK : Confirmed by: Keenan Alexandre 15-Jan-2019 09:28:53
== END 2019-01-14 06:36 | disposition home or self-care (01) ==
LOC: ER 21:09
DX: R42 Dizziness and giddiness (principal); R11.0 Nausea; E86.0 Dehydration; W19.XXXA Unspecified fall, initial encounter; I10 Essential (primary) hypertension; Z79.899 Other long term (current) drug therapy; E11.9 Type 2 diabetes mellitus without complications
CPT/HCPCS: 36415; 70450; 80048; 84484; 85027; 93005; 93010; 99284

== ENCOUNTER → 2019-02-24 | Outpatient (CLI) | payer MEDICARE, MEDICAID ==
--- NOTE | 2019-02-24 14:05 | RADIOLOGY REPORT (SQ) ---
EXAM DESCRIPTION: BARIUM ENEMA W/AIR COMPLETED DATE/TIME: 02/24/2019 11:51 am REASON FOR STUDY: IBS (K58.0), DIARRHEA (R19.7), COLON POLYP (K63.5) K58.0 IRRITABLE BOWEL SYNDROME WITH DIARRHEA R19.7 DIARRHEA, UNSPECIFIED K63.5 POLYP OF COLON COMPARISON: None. FLUOROSCOPY TIME: 6.1 MINUTES 25 images saved to PACS. TECHNIQUE: Following retrograde filling of the colon with barium and air, fluoroscopic spot and over head imaging of the colon was obtained and saved to PACS. 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 Calcified phleboliths in the pelvis. Normal bowel gas pattern. CECUM: Filled with barium, air-contrast imaging is suboptimal. No gross annular constricting lesions or polypoid masses. ASCENDING COLON: Filled with barium, air contrast imaging is suboptimal. No gross annular constricti ng lesions or polypoid masses. TRANSVERSE COLON: Normal mucosa without intraluminal filling defects, intrinsic or extrinsic masses, or lesions. DESCENDING COLON: Normal mucosa without intraluminal filling defects, intrinsic or extrinsic masses, or lesions. SIGMOID COLON: Normal mucosa without intraluminal filling defects, intrinsic or extrinsic masses, or lesions. Few colonic diverticuli RECTUM: Normal mucosa without intraluminal filling defects, intrinsic or extrinsic masses, or lesions . POST EVAC: Near complete evacuation of barium with no additional findings. OTHER: No other significant finding. IMPRESSION: Limited negative study COMMENT: Quality ID [id number]: Final reports for procedures using fluoroscopy that document radiation exp osure indices, or exposure time and number of fluorographic images (if radiation exposure indices are not available) TECHNICAL DOCUMENTATION: JOB ID: [id number] [employer]- All Rights Reserved Reading location - IP/workstation name: [email or web address]-
== END ==
LOC: RAD 09:50
PROVIDERS: ATTEND Internal Medicine Gastroenterology
DX: K58.0 Irritable bowel syndrome with diarrhea (principal); K63.5 Polyp of colon
CPT/HCPCS: 74280

== ENCOUNTER 2019-04-03 23:22 | Emergency (ER) | payer MEDICARE, MEDICAID ==
--- NOTE | 2019-04-04 06:52 | ER Document Report ---
HPI - HPI Patient complains to provider of: blisters on back Time Seen by Provider: 04/04/19 06:36 Pain Level: 3 Context: 54-year-old female with diabetes presents there is on her back that are painful and itchy. Her main concern is if it is shingles. She noticed it last night had wetness on her fingers along with a piece of skin. She deroofed what ever it was. She denies fevers or chills or systemic rash. No recent illness. Of note, she is battling bedbugs at home and has diffuse bites all over her body. No other complaints - REPRODUCTIVE Reproductive: DENIES: : Past Medical History - Social History Smoking Status: Unknown if Ever Smoked Family History: Arthritis, CAD, CVA, DM, Hyperlipidemia, Hypertension - Past Medical History Cardiac Medical History: Reports: Hx Atrial Fibrillation, Hx Hypercholesterolemia, Hx Hypertension - medicated Denies: Hx Coronary Artery Disease, Hx Heart Attack Pulmonary Medical History: Reports: Hx Bronchitis Denies: Hx Asthma Neurological Medical History: Denies: Hx Cerebrovascular Accident, Hx Seizures Endocrine Medical History: Reports: Hx Diabetes Mellitus Type 1, Hx Diabetes Mellitus Type 2 Renal/ Medical History: Denies: Hx Peritoneal Dialysis GI Medical History: Reports: Hx Diverticulitis, Hx Gastritis, Hx Gastroesophageal Reflux Disease, Hx Hiatal Hernia, Hx Irritable Bowel. Denies: Hx Hepatitis, Hx Ulcer Musculoskeletal Medical History: Reports Hx Arthritis, Reports Hx Musculoskeletal Deformity, Reports Hx Musculoskeletal Trauma Skin Medical History: Reports Hx Cellulitis Traumatic Medical History: Reports: Hx Fractures - foot Infectious Medical History: Denies: Hx Hepatitis, Hx MRSA, Hx VRE Past Surgical History: Reports: Hx Section, Hx Cholecystectomy, Hx Neurologic Surgery - nerve release right foot, Hx Oral Surgery, Hx Orthopedic Surgery - 3rd toe on right foot amputated. Denies: Hx Hysterectomy, Hx Mastectomy, Hx Open Heart Surgery, Hx Pacemaker - Immunizations Immunizations up to date: Yes Hx Diphtheria, Pertussis, Tetanus Vaccination: Yes Vertical Provider Document - CONSTITUTIONAL Notes: PHYSICAL EXAMINATION: Reviewed vital signs and charting by RN GENERAL: Well-appearing, well-nourished and in no acute distress. HEAD: Atraumatic, normocephalic. No scalp deformity, depression, or crepitance. EYES: Pupils are 3 mm and equal/round, extraocular movements intact, sclera anicteric, conjunctiva are normal. ENT: Nares patent bilaterally, BACK: Normal contour, no midline tenderness. Rectal exam deferred. PELVC: Deferred. EXTREMITIES: Normal range of motion, no pitting or edema. No cyanosis. NEUROLOGICAL: No focal neurological deficits. Cranial nerves III-XII grossly intact. Moves all extremities spontaneously and on command. PSYCH: Normal mood, normal affect. No suicidal thoughts/ideations. No homocidal thoughts/ideations. No hallucinations. SKIN: Warm, dry, normal turgor, diffuse rash around her entire waist and her bilateral wrists consistent with bedbug bites. There is a small area approximately 3 mm x 4 mm of deroofed skin on her left thoracic back. There are 3 areas on her right mid thoracic back with some mild erythema approximately the size of dimes. - INFECTION CONTROL TRAVEL OUTSIDE OF THE [place] IN LAST 30 DAYS: No Course - Re-evaluation Re-evalutation: 04/04/19 06:50 Overall well-appearing. Presentation is not consistent with shingles or SJS or TEN. I offered patient Benadryl but she says she has some at home. At this time patient is safe and stable for discharge. - Vital Signs Vital signs: Temp Pulse Resp BP Pulse Ox 98 F 73 18 154/96 H 97 04/04/19 03:47 04/04/19 03:47 04/04/19 03:47 04/04/19 03:47 04/04/19 03:47 Discharge - Discharge Clinical Impression: Rash and nonspecific skin eruption Condition: Good Disposition: HOME, SELF-CARE Additional Instructions: He was seen in the emergency department this morning for a rash. It is unclear what the rashes but is not appear to be shingles at this time. Is very reassuri ng. It is itchy you can take Benadryl 25 mg by mouth. Please follow-up with Dr. Naranjo in the next 1 to 2 weeks if your symptoms do not improve. If you develop more blisters over your body, you have severe pain, your skin starts to slough off, or you have any other concerns please return to the emergency department for reevaluation. Referrals: VERONA NARANJO MD [Primary Care Provider] - Follow up as needed
[2019-04-04 07:01] VITALS: BP 147/71
== END 2019-04-04 07:10 | disposition home or self-care (01) ==
LOC: ER 23:22
DX: R21 Rash and other nonspecific skin eruption (principal); T14.8XXA Other injury of unspecified body region, initial encounter; W57.XXXA Bitten or stung by nonvenomous insect and other nonvenomous arthropods, initial encounter; E11.9 Type 2 diabetes mellitus without complications; I10 Essential (primary) hypertension
CPT/HCPCS: 99283

== ENCOUNTER 2019-04-08 14:57 | Day surgery (SDC) | payer MEDICARE, MEDICAID ==
[2019-04-08] MEDS ORDERED: ONDANSETRON HCL INJ/PF 4 MG/2 ML SDV ONE (15:22)
[2019-04-08] MEDS ORDERED: DIPHENHYDRAMINE HCL 50 MG/ML VIAL ONE (15:22)
[2019-04-08] MEDS ORDERED: FLUMAZENIL INJ 0.5 MG/5 ML VIAL ONE (15:23)
[2019-04-08] MEDS ORDERED: GLUCAGON,HUMAN RECOMB 1 MG INJ ONE (15:23)
[2019-04-08] MEDS ORDERED: NALOXONE HCL INJ/PF 0.4 MG/1 ML SDV ONE (15:23)
[2019-04-08] MEDS ORDERED: FENTANYL CITRATE INJ/PF 100 MCG/2 ML AMPUL ONE (15:23)
[2019-04-08] MEDS ORDERED: EPINEPHRINE INJ 1 MG/10 ML DISP.SYRIN ONE (15:23)
[2019-04-08] MEDS: MIDAZOLAM 2 MG/2 ML INJ ONE ×2 (16:23→16:28)
--- NOTE | 2019-04-08 16:58 | Operative Report ---
Operative Report DATE OF SURGERY: 04/08/19 Operative Report: Pre-op diagnosis: History of colon polyp and incomplete colonoscopy Post-op diagnosis: 1. Ascending colon polyp 2. Mild sigmoid diverticulosis Surgery: Colonoscopy with polypectomy Medications: Versed 3mg, Fentanyl 100 Mcg IV push Tissue removed: Colon polyp Procedure: After informed consent obtained from patient, conscious sedation was achieved. A digital rectal examination was performed and this was unremarkable. The colonoscope was inserted into the rectum and advanced to the cecum. The appendiceal orifice and the terminal ileum were both identified. The mucosa was examined into details as the colonoscope was slowly pulled out of the patient. The endoscope was retroflexed in the rectum. Patient tolerated the procedure well. Findings Cecum: Normal Ascending colon: 7 mm polyp removed with the hot snare Transverse colon: Normal Descending colon: Normal Sigmoid colon: Few diverticuli noted Rectum: Normal except for internal hemorrhoids Plan: Await pathology OPERATION: .
[2019-04-08 17:39] VITALS: BP 132/63
== END 2019-04-08 17:35 | disposition home or self-care (01) ==
LOC: END 14:57
PROVIDERS: ATTEND Internal Medicine Gastroenterology
DX: Z12.11 Encounter for screening for malignant neoplasm of colon (principal); D12.2 Benign neoplasm of ascending colon; K64.8 Other hemorrhoids; K57.30 Diverticulosis of large intestine without perforation or abscess without bleeding; Z86.010 Personal history of colon polyps
CPT/HCPCS: 45385; 82962; 88305 ×2; J2250; J3010; J0171; J1200; J1610; J2310; J2405; J3490

== ENCOUNTER → 2019-06-30 | Outpatient (CLI) | payer MEDICARE, MEDICAID ==
[2019-06-30 18:28] LABS: FERRITIN 5.94 ng/mL (11.1-264.0)
[2019-06-30 18:59] LABS: FOLATE > 20.00 ng/mL (>2.76); IRON(TIBC) < 10.1 ug/dL (37-170)
== END ==
LOC: LAB 17:19
PROVIDERS: ATTEND Internal Medicine Gastroenterology
DX: D53.9 Nutritional anemia, unspecified (principal)
CPT/HCPCS: 36415; 82607; 82728; 82746; 83540; 83550

== ENCOUNTER 2019-12-12 15:41 | Emergency (ER) | payer MEDICARE, MEDICAID ==
[2019-12-12] MEDS ORDERED: NORMAL SALINE 1000 ML 1,000 ML IV ONE ×3 (16:25→23:56)
[2019-12-12] MEDS ORDERED: ONDANSETRON HCL INJ/PF 4 MG/2 ML SDV IV ONE (16:25)
--- NOTE | 2019-12-12 16:26 | ER Document Report ---
ED Medical Screen (RME) - General Chief Complaint: Vomiting Stated Complaint: VOMITING Time Seen by Provider: 12/12/19 16:18 Primary Care Provider: VERONA NARANJO MD [Primary Care Provider] - Follow up as needed Information source: Patient Notes: Patient presents complaining of nausea vomiting for the past 4 days. Patient states she is vomited 3 times today. Patient complains of generalized abdominal tenderness. Patient denies any urinary symptoms vaginal bleeding or discharge. Patient is diabetic and states that her blood sugars have been running very high recently. I have greeted and performed a rapid initial assessment of this patient. A comprehensive ED assessment and evaluation of the patient, analysis of test results and completion of the medical decision making process will be conducted by additional ED providers. TRAVEL OUTSIDE OF THE [place] IN LAST 30 DAYS: No - Related Data Allergies/Adverse Reactions: bismuth subsalicylate [From Pepto-Bismol] Allergy (Severe, Verified 12/12/19 16:14) VOMITING ciprofloxacin [From Cipro] Adverse Reaction (Intermediate, Verified 12/12/19 16:14) Dizziness/nasea Home Medications: dm. htn. jardance. metformin. victoza Past Medical History - Social History Chew tobacco use (# tins/day): No Frequency of alcohol use: None Drug Abuse: None - Past Medical History Cardiac Medical History: Reports: Hx Atrial Fibrillation, Hx Hypercholesterolemia, Hx Hypertension - medicated Denies: Hx Coronary Artery Disease, Hx Heart Attack Pulmonary Medical History: Reports: Hx Bronchitis Denies: Hx Asthma, Hx COPD, Hx Pneumonia Neurological Medical History: Denies: Hx Cerebrovascular Accident, Hx Seizures Endocrine Medical History: Reports: Hx Diabetes Mellitus Type 1, Hx Diabetes Mellitus Type 2 Renal/ Medical History: Denies: Hx Peritoneal Dialysis GI Medical History: Reports: Hx Diverticulitis, Hx Gastritis, Hx Gastroesophageal Reflux Disease, Hx Hiatal Hernia, Hx Irritable Bowel. Denies: Hx Hepatitis, Hx Ulcer Musculoskeltal Medical History: Reports Hx Arthritis, Reports Hx Musculoskeletal Deformity, Reports Hx Musculoskeletal Trauma Skin Medical History: Reports Hx Cellulitis Traumatic Medical History: Reports: Hx Fractures - foot Infectious Medical History: Denies: Hx Hepatitis, Hx MRSA, Hx VRE Past Surgical History: Reports: Hx Section, Hx Cholecystectomy, Hx Neurologic Surgery - nerve release right foot, Hx Oral Surgery, Hx Orthopedic Surgery - 3rd toe on right foot amputated. Denies: Hx Hysterectomy, Hx Mastectomy, Hx Open Heart Surgery, Hx Pacemaker - Immunizations Immunizations up to date: Yes Hx Diphtheria, Pertussis, Tetanus Vaccination: Yes Physical Exam - Vital signs Vitals: Temp Pulse Resp BP Pulse Ox 98.8 F 86 18 162/85 H 95 12/12/19 15:47 12/12/19 15:47 12/12/19 15:47 12/12/19 15:47 12/12/19 15:47 - Abdominal Inspection: Morbidly Obese Tenderness: Tender - Generalized abdominal tenderness Course - Vital Signs Vital signs: Temp Pulse Resp BP Pulse Ox 98.8 F 86 18 162/85 H 95 12/12/19 15:47 12/12/19 15:47 12/12/19 15:47 12/12/19 15:47 12/12/19 15:47 Doctor's Discharge - Discharge Referrals: VERONA NARANJO MD [Primary Care Provider] - Follow up as needed
[2019-12-12 17:30] LABS: VENOUS BLOOD BASE EXCESS 0.3 mmol/L; VENOUS BLOOD HCO3 26.6 mmol/L (20-32); VENOUS BLOOD PCO2 49.5 mmHg (35-63); VENOUS BLOOD PH 7.35 (7.30-7.42)
[2019-12-12 17:50] LABS: ABSOLUTE LYMPHOCYTES (AUTO) 1.5 10^3/uL (0.5-4.7); ABSOLUTE MONOCYTES (AUTO) 0.6 10^3/uL (0.1-1.4); ABSOLUTE NEUT (AUTO) 8.3 10^3/uL (1.7-8.2); BASOPHILS % (AUTO) 0.2 % (0-2); HEMATOCRIT 43.6 % (36.0-47.0); HEMOGLOBIN 15.1 g/dL (12.0-15.5); LYMPHOCYTES % (AUTO) 14.7 % (13-45); MEAN CORPUSCULAR HEMOGLOBIN 30.7 pg (27.0-33.4); MEAN CORPUSCULAR HGB CONC 34.5 g/dL (32.0-36.0); MEAN CORPUSCULAR VOLUME 89 fl (80-97); MONOCYTES % (AUTO) 5.5 % (3-13); PLATELET COUNT 254 10^3/uL (150-450); RED BLOOD COUNT 4.91 10^6/uL (3.72-5.28); RED CELL DISTRIBUTION WIDTH 13.4 % (11.5-14.0); SEGMENTED NEUTROPHILS % (AUTO) 79.6 % (42-78); TOTAL CELLS COUNTED % (AUTO) 100 %; WHITE BLOOD COUNT 10.5 10^3/uL (4.0-10.5)
[2019-12-12 18:07] LABS: ALBUMIN 4.4 g/dL (3.5-5.0); ALKALINE PHOSPHATASE 156 U/L (38-126); ASPARTATE AMINO TRANSFERASE 44 U/L (14-36); BILIRUBIN,DIRECT 0.1 mg/dL (0.0-0.4); BILIRUBIN,TOTAL 0.9 mg/dL (0.2-1.3); BLOOD UREA NITROGEN 23 mg/dL (7-20); CALCIUM 10.2 mg/dL (8.4-10.2); CARBON DIOXIDE 28 mmol/L (22-30); CHLORIDE 90 mmol/L (98-107); GLUCOSE 301 mg/dL (75-110); POTASSIUM 4.2 mmol/L (3.6-5.0); TOTAL PROTEIN 7.1 g/dL (6.3-8.2)
[2019-12-12 18:24] LABS: ANION GAP 21 (5-19)
[2019-12-12] MEDS ORDERED: METOCLOPRAMIDE HCL INJ/PF 10 MG/2 ML SDV IV ONE (20:02)
[2019-12-12 20:11] LABS: APPEARANCE,URINE CLEAR; BILIRUBIN,URINE NEGATIVE (NEGATIVE); COLOR,URINE YELLOW; GLUCOSE, URINE >=500 mg/dL (NEGATIVE); KETONES,URINE 80 mg/dL (NEGATIVE); LEUKOCYTE ESTERASE,URINE NEGATIVE (NEGATIVE); NITRITE,URINE NEGATIVE (NEGATIVE); PROTEIN,URINE 100 mg/dL (NEGATIVE); URINE SPECIFIC GRAVITY 1.027; UROBILINOGEN,URINE NEGATIVE mg/dL (<2.0)
--- NOTE | 2019-12-12 20:35 | ER Document Report ---
ED General - General Chief Complaint: Vomiting Stated Complaint: VOMITING Time Seen by Provider: 12/12/19 16:18 Primary Care Provider: VERONA NARANJO MD [Primary Care Provider] - Follow up in 3-5 days Mode of Arrival: Ambulatory Information source: Patient Notes: 54-year-old female history of diabetes A. fib hypertension IBS diverticulosis and gastritis presents emergency department with complaints of nausea and vomiting for the past 4 days. She reports she has vomited at least 3 times today. She complains of abdominal tenderness for the past 3 days. She reports she has not been able to eat or drink for the past 2 to 3 days. She reports last bowel movement was a few days ago and it was normal. She reports this is weird because she usually has diarrhea on a daily basis due to her IBS. She admits to seeing Dr. Cyr last week and was placed on [id number] medication for her diarrhea. She does not remember what the name of it was. She reports "I guess it is working". TRAVEL OUTSIDE OF THE [place] IN LAST 30 DAYS: No - HPI Onset: Other Onset/Duration: Persistent Quality of pain: Achy Associated symptoms: Nausea, Vomiting Exacerbated by: Denies Relieved by: Denies Similar symptoms previously: No Recently seen / treated by doctor: No - Related Data Allergies/Adverse Reactions: bismuth subsalicylate [From Pepto-Bismol] Allergy (Severe, Verified 12/12/19 16:14) VOMITING ciprofloxacin [From Cipro] Adverse Reaction (Intermediate, Verified 12/12/19 16:14) Dizziness/nasea Home Medications: dm. htn. jardance. metformin. victoza Past Medical History - General Information source: Patient - Social History Smoking Status: Never Smoker Chew tobacco use (# tins/day): No Frequency of alcohol use: None Drug Abuse: None Lives with: Family - son Family History: Arthritis, CAD, CVA, DM, Hyperlipidemia, Hypertension Patient has suicidal ideation: No Patient has homicidal ideation: No - Past Medical History Cardiac Medical History: Reports: Hx Atrial Fibrillation, Hx Hypercholesterolemia, Hx Hypertension - medicated Denies: Hx Coronary Artery Disease, Hx Heart Attack Pulmonary Medical History: Reports: Hx Bronchitis Denies: Hx Asthma, Hx COPD, Hx Pneumonia Neurological Medical History: Denies: Hx Cerebrovascular Accident, Hx Seizures Endocrine Medical History: Reports: Hx Diabetes Mellitus Type 1, Hx Diabetes Mellitus Type 2 Renal/ Medical History: Denies: Hx Peritoneal Dialysis GI Medical History: Reports: Hx Diverticulitis, Hx Gastritis, Hx Gastroesophageal Reflux Disease, Hx Hiatal Hernia, Hx Irritable Bowel. Denies: Hx Hepatitis, Hx Ulcer Musculoskeletal Medical History: Reports Hx Arthritis, Reports Hx Musculoskeletal Deformity, Reports Hx Musculoskeletal Trauma Skin Medical History: Reports Hx Cellulitis Traumatic Medical History: Reports: Hx Fractures - foot Infectious Medical History: Denies: Hx Hepatitis, Hx MRSA, Hx VRE Past Surgical History: Reports: Hx Section, Hx Cholecystectomy, Hx Neurologic Surgery - nerve release right foot, Hx Oral Surgery, Hx Orthopedic Surgery - 3rd toe on right foot amputated. Denies: Hx Hysterectomy, Hx Mastectomy, Hx Open Heart Surgery, Hx Pacemaker - Immunizations Immunizations up to date: Yes Hx Diphtheria, Pertussis, Tetanus Vaccination: Yes Review of Systems - Review of Systems Notes: Review HPI for review of systems., All other systems negative Physical Exam - Vital signs Vitals: Temp Pulse Resp BP Pulse Ox 98.8 F 86 18 162/85 H 95 12/12/19 15:47 12/12/19 15:47 12/12/19 15:47 12/12/19 15:47 12/12/19 15:47 - General General appearance: Alert In distress: None - HEENT Head: Normocephalic Eyes: Normal Conjunctiva: Normal Extraocular movements intact: Yes Neck: Normal, Supple. No: Lymphadenopathy - Respiratory Respiratory status: No respiratory distress Chest status: Nontender Breath sounds: Normal Chest palpation: Normal - Cardiovascular Rhythm: Regular Heart sounds: Normal auscultation - Abdominal Inspection: Normal, Morbidly Obese Distension: No distension Bowel sounds: Hyperactive Tenderness: Tender - Patient complains of generalized tenderness more on the left side and left lower abdomen. No: McBurney's point, Amador's sign, Guarding, Rebound Organomegaly: No organomegaly Adult front & back diagram: 1 - Patient complains of generalized abdominal tenderness with increased pain to the left and left lower quad - Back Back: Normal. No: CVA tenderness - Extremities General upper extremity: Normal ROM, Normal strength General lower extremity: Normal ROM, Normal strength - Neurological Neuro grossly intact: Yes Cognition: Normal Orientation: AAOx4 [place]uy Coma Scale Eye Opening: Spontaneous [place] Coma Scale Verbal: Oriented [place] Coma Scale Motor: Obeys Commands [place] Coma Scale Total: 15 Speech: Normal Cranial nerves: Normal Cerebellar coordination: Normal Motor strength normal: LUE, RUE, LLE, RLE Sensory: Normal - Psychological Associated symptoms: Normal affect, Normal mood - Skin Skin Temperature: Warm Skin Moisture: Dry Skin Color: Normal Course - Re-evaluation Re-evalutation: 12/12/19 20:34 54-year-old diabetic patient presents emergency department with complaints of nausea and vomiting abdominal pain for the past 4 days. Patient reports she still feels nauseated after receiving Zofran. Reglan was ordered with another liter of fluid. Chloride 98 anion gap 21 for diabetic ketoacidosis. CBC unremarkable 12/12/19 22:03 Patient resting quietly no further vomiting since arrival. 12/13/19 00:03 Anion gap still elevated at 21 CO2 unremarkable. Patient has not vomited since arrival reports she is feeling better. She is eating ice chips now. Discussed patient with Dr. Arevalo he advises 1 more liter of fluids. If patient does not vomit will be discharged home. Report given to Jorgito DEL REAL. Laboratory 12/12/19 12/12/19 12/12/19 16:47 17:09 17:12 WBC 10.5 RBC 4.91 Hgb 15.1 Hct 43.6 MCV 89 MCH 30.7 MCHC 34.5 RDW 13.4 Plt Count 254 Lymph % (Auto) 14.7 [place] % (Auto) 5.5 Eos % (Auto) 0.0 Baso % (Auto) 0.2 Absolute Neuts (auto) 8.3 H Absolute Lymphs (auto) 1.5 Absolute Monos (auto) 0.6 Absolute Eos (auto) 0.0 Absolute Basos (auto) 0.0 Seg Neutrophils % 79.6 H VBG pH 7.35 VBG pCO2 49.5 VBG HCO3 26.6 VBG Base Excess 0.3 Sodium Potassium Chloride Carbon Dioxide Anion Gap BUN Creatinine Est GFR ( Amer) Est GFR (MDRD) Non-Af Glucose POC Glucose 324 H Calcium Total Bilirubin Direct Bilirubin Neonat Total Bilirubin Neonat Direct Bilirubin Neonat Indirect Bili AST ALT Alkaline Phosphatase Total Protein Albumin Lipase Urine Color Urine Appearance Urine pH Ur Specific [place] Urine Protein Urine Glucose (UA) Urine Ketones Urine Blood Urine Nitrite Urine Bilirubin Urine Urobilinogen Ur Leukocyte Esterase Urine WBC (Auto) Urine RBC (Auto) Squamous Epi Cells Auto Urine Mucus (Auto) Urine Ascorbic Acid 12/12/19 12/12/19 12/12/19 17:12 19:30 19:55 WBC RBC Hgb Hct MCV MCH MCHC RDW Plt Count Lymph % (Auto) [place] % (Auto) Eos % (Auto) Baso % (Auto) Absolute Neuts (auto) Absolute Lymphs (auto) Absolute Monos (auto) Absolute Eos (auto) Absolute Basos (auto) Seg Neutrophils % VBG pH VBG pCO2 VBG HCO3 VBG Base Excess Sodium 139.0 Potassium 4.2 Chloride 90 L Carbon Dioxide 28 Anion Gap 21 H BUN 23 H Creatinine 0.97 Est GFR ( Amer) > 60 Est GFR (MDRD) Non-Af > 60 Glucose 301 H POC Glucose 263 H Calcium 10.2 Total Bilirubin 0.9 Direct Bilirubin 0.1 Neonat Total Bilirubin Not Reportable Neonat Direct Bilirubin Not Reportable Neonat Indirect Bili Not Reportable AST 44 H ALT 48 Alkaline Phosphatase 156 H Total Protein 7.1 Albumin 4.4 Lipase 38.2 Urine Color YELLOW Urine Appearance CLEAR Urine pH 5.0 Ur Specific [place] 1.027 Urine Protein 100 H Urine Glucose (UA) >=500 H Urine Ketones 80 H Urine Blood SMALL H Urine Nitrite NEGATIVE Urine Bilirubin NEGATIVE Urine Urobilinogen NEGATIVE Ur Leukocyte Esterase NEGATIVE Urine WBC (Auto) 1 Urine RBC (Auto) 2 Squamous Epi Cells Auto 1 Urine Mucus (Auto) RARE Urine Ascorbic Acid NEGATIVE 12/12/19 23:02 WBC RBC Hgb Hct MCV MCH MCHC RDW Plt Count Lymph % (Auto) [place] % (Auto) Eos % (Auto) Baso % (Auto) Absolute Neuts (auto) Absolute Lymphs (auto) Absolute Monos (auto) Absolute Eos (auto) Absolute Basos (auto) Seg Neutrophils % VBG pH VBG pCO2 VBG HCO3 VBG Base Excess Sodium 138.0 Potassium 3.3 L Chloride 92 L Carbon Dioxide 25 Anion Gap 21 H BUN 22 H Creatinine 0.92 Est GFR ( Amer) > 60 Est GFR (MDRD) Non-Af > 60 Glucose 265 H POC Glucose Calcium 9.3 Total Bilirubin Direct Bilirubin Neonat Total Bilirubin Neonat Direct Bilirubin Neonat Indirect Bili AST ALT Alkaline Phosphatase Total Protein Albumin Lipase Urine Color Urine Appearance Urine pH Ur Specific [place] Urine Protein Urine Glucose (UA) Urine Ketones Urine Blood Urine Nitrite Urine Bilirubin Urine Urobilinogen Ur Leukocyte Esterase Urine WBC (Auto) Urine RBC (Auto) Squamous Epi Cells Auto Urine Mucus (Auto) Urine Ascorbic Acid Abdomen/Pelvis CT 12/12/19 20:07 IMPRESSION: Sigmoid diverticulosis. No CT evidence for diverticulitis. Fatty infiltrative change to the liver TECHNICAL DOCUMENTATION: Quality ID # [id number]: Final reports with documentation of one or more dose reduction techniques (e.g., Automated exposure control, adjustment of the mA and/or kV according to patient size, use of iterative reconstruction technique) copyright 2010 [employer]- All Rights Reserved 12/13/19 11:56 - Vital Signs Vital signs: Temp Pulse Resp BP Pulse Ox 98.6 F 86 18 166/81 H 96 12/13/19 03:00 12/13/19 03:00 12/13/19 03:00 12/13/19 03:00 12/13/19 03:00 - Laboratory Result Diagrams: 12/12/19 17:12 12/12/19 23:02 Laboratory results interpreted by me: 12/12/19 12/12/19 12/12/19 16:47 17:12 17:12 Absolute Neuts (auto) 8.3 H Seg Neutrophils % 79.6 H Potassium Chloride 90 L Anion Gap 21 H BUN 23 H Glucose 301 H POC Glucose 324 H AST 44 H Alkaline Phosphatase 156 H Urine Protein Urine Glucose (UA) Urine Ketones Urine Blood 12/12/19 12/12/19 12/12/19 19:30 19:55 23:02 Absolute Neuts (auto) Seg Neutrophils % Potassium 3.3 L Chloride 92 L Anion Gap 21 H BUN 22 H Glucose 265 H POC Glucose 263 H AST Alkaline Phosphatase Urine Protein 100 H Urine Glucose (UA) >=500 H Urine Ketones 80 H Urine Blood SMALL H - Diagnostic Test Radiology reviewed: Image reviewed, Reports reviewed Discharge - Discharge Clinical Impression: Diverticulosis Abdominal pain Qualifiers: Abdominal location: generalized Qualified Code(s): R10.84 - Generalized abdominal pain Nausea and vomiting Qualifiers: Vomiting type: unspecified Vomiting Intractability: non-intractable Qualified Code(s): R11.2 - Nausea with vomiting, unspecified Condition: Stable Disposition: HOME, SELF-CARE Instructions: Abdominal Pain ([facility]), Antinausea Medication ([facility]), Intravenous (IV) Fluids ([facility]), Reglan ([facility]), Vomiting ([facility]) Additional Instructions: *You have been evaluated for abdominal pain, nausea and vomiting *Take medication as prescribed *Follow up with a primary care provider within 5 days for recheck *Return to ED for worsening condition, changes, needs, vomiting, increased abdominal pain *Return to ED if not better in 24 hours Forms: Return to Work Referrals: VERONA NARANJO MD [Primary Care Provider] - Follow up in 3-5 days
[2019-12-12 23:37] LABS: BLOOD UREA NITROGEN 22 mg/dL (7-20); CALCIUM 9.3 mg/dL (8.4-10.2); CARBON DIOXIDE 25 mmol/L (22-30); CHLORIDE 92 mmol/L (98-107); GLUCOSE 265 mg/dL (75-110); POTASSIUM 3.3 mmol/L (3.6-5.0)
--- NOTE | 2019-12-12 23:41 | RADIOLOGY REPORT (SQ) ---
EXAM DESCRIPTION: CT ABDOMEN PELVIS WITHOUT IV CONTRAST COMPLETED DATE/TME: 12/12/2019 20:07 CLINICAL HISTORY: 54 years, Female, abd pain n/v, hx diverticulosis COMPARISON: [id number] CT TECHNIQUE: 349 Images stored on PACS. All CT scanners at this facility use dose modulation, iterative reconstruction, and/or weight based dosing when appropriate to reduce radiation dose to as low as reasonably achievable (ALARA). [facility]: Dose Right [facility]: CareDose [facility]: Dose Right [facility]: Teradose 4D [facility]: [email or web address] LIMITATIONS: None. FINDINGS: The lung bases are unremarkable. Osseous structures are grossly intact. Fatty infiltrative change to the liver. The spleen, adrenal glands, pancreas, kidneys are unremarkable. Surgical absence of the gallbladder. No evidence for bowel obstruction. No free air or free fluid. Normal appendix. IUD in place. Sigmoid diverticulosis. No CT evidence for diverticulitis. IMPRESSION: Sigmoid diverticulosis. No CT evidence for diverticulitis. Fatty infiltrative change to the liver TECHNICAL DOCUMENTATION: Quality ID # 436: Final reports with documentation of one or more dose reduction techniques (e.g., Automated exposure control, adjustment of the mA and/or kV according to patient size, use of iterative reconstruction technique) copyright 2010 [employer]- All Rights Reserved
[2019-12-12 23:44] LABS: ANION GAP 21 (5-19)
[2019-12-13] MEDS ORDERED: ONDANSETRON ODT 4 MG TAB (6 TAB/ER DISP) PO PRN ×2 (00:05→02:51)
[2019-12-13 03:01] VITALS: BP 166/81
== END 2019-12-13 03:02 | disposition home or self-care (01) ==
LOC: ER 15:41
DX: K57.90 Diverticulosis of intestine, part unspecified, without perforation or abscess without bleeding (principal); R10.84 Generalized abdominal pain; R11.2 Nausea with vomiting, unspecified; E11.9 Type 2 diabetes mellitus without complications; I10 Essential (primary) hypertension; I48.91 Unspecified atrial fibrillation; Z88.8 Allergy status to other drugs, medicaments and biological substances; Z79.899 Other long term (current) drug therapy
CPT/HCPCS: 99284; 96361; 96374; 96375; 36415; 82962; 83690; 85025; 80053; 81001; 82803; 74176; J2765; J2405; J7030 ×2; A9270

== ENCOUNTER 2019-12-20 17:41 | Inpatient (IN) | payer MEDICARE, MEDICAID ==
[2019-12-20 18:15] LABS: ABSOLUTE BASOPHILS # (AUTO) 0.1 10^3/uL (0.0-0.2); ABSOLUTE LYMPHOCYTES (AUTO) 1.7 10^3/uL (0.5-4.7); ABSOLUTE MONOCYTES (AUTO) 0.9 10^3/uL (0.1-1.4); ABSOLUTE NEUT (AUTO) 12.5 10^3/uL (1.7-8.2); BASOPHILS % (AUTO) 0.3 % (0-2); EOSINOPHILS % (AUTO) 0.1 % (0-6); HEMATOCRIT 47.9 % (36.0-47.0); HEMOGLOBIN 16.2 g/dL (12.0-15.5); MEAN CORPUSCULAR HEMOGLOBIN 30.1 pg (27.0-33.4); MEAN CORPUSCULAR HGB CONC 33.9 g/dL (32.0-36.0); MEAN CORPUSCULAR VOLUME 89 fl (80-97); PLATELET COUNT 288 10^3/uL (150-450); RED BLOOD COUNT 5.39 10^6/uL (3.72-5.28); RED CELL DISTRIBUTION WIDTH 14.6 % (11.5-14.0); SEGMENTED NEUTROPHILS % (AUTO) 82.6 % (42-78); TOTAL CELLS COUNTED % (AUTO) 100 %; WHITE BLOOD COUNT 15.2 10^3/uL (4.0-10.5)
[2019-12-20 19:12] LABS: ALBUMIN 3.9 g/dL (3.5-5.0); BILIRUBIN,DIRECT 0.4 mg/dL (0.0-0.4); BILIRUBIN,TOTAL 0.9 mg/dL (0.2-1.3); BLOOD UREA NITROGEN 14 mg/dL (7-20); CALCIUM 8.7 mg/dL (8.4-10.2); CARBON DIOXIDE 12 mmol/L (22-30); CHLORIDE 97 mmol/L (98-107); GLUCOSE 315 mg/dL (75-110); TOTAL PROTEIN 7.1 g/dL (6.3-8.2)
[2019-12-20 19:16] LABS: ASPARTATE AMINO TRANSFERASE 38 U/L (14-36)
[2019-12-20 19:17] LABS: ALKALINE PHOSPHATASE 131 U/L (38-126); POTASSIUM 3.3 mmol/L (3.6-5.0)
[2019-12-20 19:22] LABS: ANION GAP 24 (5-19)
[2019-12-20 19:47] LABS: APPEARANCE,URINE CLEAR; BILIRUBIN,URINE NEGATIVE (NEGATIVE); COLOR,URINE YELLOW; GLUCOSE, URINE >=500 mg/dL (NEGATIVE); KETONES,URINE 80 mg/dL (NEGATIVE); LEUKOCYTE ESTERASE,URINE NEGATIVE (NEGATIVE); NITRITE,URINE NEGATIVE (NEGATIVE); PROTEIN,URINE 100 mg/dL (NEGATIVE); URINE SPECIFIC GRAVITY 1.023; UROBILINOGEN,URINE NEGATIVE mg/dL (<2.0)
--- NOTE | 2019-12-20 20:44 | ER Document Report ---
ED General - General Chief Complaint: Altered Mental Status Stated Complaint: AMS Time Seen by Provider: 12/20/19 20:13 Notes: Patient is a 54-year-old female that comes emergency department for chief complaint of weakness and being unable to get off of the floor. Patient states that she has been lying on the floor for the past 3 days and could not get up. She states that she not have any injury, she denies falling, she denies any pain except some vague abdominal pain, she states she simply got too weak and could not get off the floor. She states she lives with her son and her son called the ambulance. She denies headache, chest pain, dizziness, vomiting, fever. She is able to tell me her location, events, and the year. Patient states she takes daily medications but cannot remember what they are. Past medical history reported from previous visits include atrial fibrillation, hypertension, type 2 diabetes, irritable bowel syndrome. Patient tells me that right now she is very thirsty and is asking for something to drink, has no other complaints at the moment. TRAVEL OUTSIDE OF THE [place] IN LAST 30 DAYS: No - Related Data Allergies/Adverse Reactions: bismuth subsalicylate [From Pepto-Bismol] Allergy (Severe, Verified 12/12/19 16:14) VOMITING ciprofloxacin [From Cipro] Adverse Reaction (Intermediate, Verified 12/12/19 16:14) Dizziness/nasea Past Medical History - General Information source: Patient - Social History Smoking Status: Unknown if Ever Smoked Frequency of alcohol use: None Lives with: Family Family History: Arthritis, CAD, CVA, DM, Hyperlipidemia, Hypertension Patient has suicidal ideation: No Patient has homicidal ideation: No - Past Medical History Cardiac Medical History: Reports: Hx Atrial Fibrillation, Hx Hypercholesterolemia, Hx Hypertension - medicated Denies: Hx Coronary Artery Disease, Hx Heart Attack Pulmonary Medical History: Reports: Hx Bronchitis Denies: Hx Asthma, Hx COPD, Hx Pneumonia Neurological Medical History: Denies: Hx Cerebrovascular Accident, Hx Seizures Endocrine Medical History: Reports: Hx Diabetes Mellitus Type 1, Hx Diabetes Mellitus Type 2 Renal/ Medical History: Denies: Hx Peritoneal Dialysis GI Medical History: Reports: Hx Diverticulitis, Hx Gastritis, Hx Gastroesophageal Reflux Disease, Hx Hiatal Hernia, Hx Irritable Bowel. Denies: Hx Hepatitis, Hx Ulcer Musculoskeletal Medical History: Reports Hx Arthritis, Reports Hx Musculoskeletal Deformity, Reports Hx Musculoskeletal Trauma Skin Medical History: Reports Hx Cellulitis Traumatic Medical History: Reports: Hx Fractures - foot Infectious Medical History: Denies: Hx Hepatitis, Hx MRSA, Hx VRE Past Surgical History: Reports: Hx Section, Hx Cholecystectomy, Hx Neurologic Surgery - nerve release right foot, Hx Oral Surgery, Hx Orthopedic Surgery - 3rd toe on right foot amputated. Denies: Hx Hysterectomy, Hx Mastectomy, Hx Open Heart Surgery, Hx Pacemaker - Immunizations Immunizations up to date: Yes Hx Diphtheria, Pertussis, Tetanus Vaccination: Yes Review of Systems - Review of Systems Constitutional: See HPI EENT: No symptoms reported Cardiovascular: No symptoms reported Respiratory: No symptoms reported Gastrointestinal: No symptoms reported Genitourinary: No symptoms reported Female Genitourinary: No symptoms reported Musculoskeletal: See HPI Skin: No symptoms reported Hematologic/Lymphatic: No symptoms reported Neurological/Psychological: See HPI Physical Exam - Vital signs Vitals: Temp BP Pulse Ox 98.4 F 160/70 H 100 12/20/19 17:46 12/20/19 17:46 12/20/19 17:46 - Notes Notes: GENERAL: Alert, somewhat disheveled HEAD: Normocephalic, atraumatic. EYES: Pupils equal, round, and reactive to light. Extraocular movements intact. ENT: Oral mucosa very dry, tongue midline. Oropharynx unremarkable. Airway patent. LUNGS: Clear to auscultation bilaterally, no wheezes, rales, or rhonchi. No respiratory distress. HEART: Regular rate and rhythm. No murmur ABDOMEN: Soft, non-tender. Non-distended. EXTREMITIES: Moves all 4 extremities spontaneously. No edema, normal radial and dorsalis pedis pulses bilaterally. No cyanosis. BACK: no cervical, thoracic, lumbar midline tenderness. No saddle anesthesia, normal distal neurovascular exam. NEUROLOGICAL: Alert and oriented x3. Normal speech. Cranial nerves II through XII grossly intact. PSYCH: Flat affect SKIN: pale Course - Re-evaluation Re-evalutation: Patient is oriented to person, place, vague about why she was on the floor, I could not get out of for a clear answer. She does not have any clear neurological deficit, denies headache, does not report any specific symptoms other than being weak. She denies medication noncompliance or recreational drugs. She does have extremely dry mucous membranes and is disheveled in appearance. CBC shows with leukocytosis at 15,000 with elevation of neutrophils but no bandemia. Hemoglobin is elevated suggesting hemoconcentration. Bicarbonate is only 12, anion gap is elevated, potassium low at 3.3. Renal functioning unremarkable, creatinine kinase is actually normal. Venous blood gas does show a metabolic acidosis. Urinalysis also indicates this with ketones and elevated specific gravity. Patient was started on lactated Ringer's. Glucose is elevated at 315. Patient not tachycardic, she has type [address] of the head negative, chest x-ray unremarkable. Discussed with patient. Patient is still cooperative, will not give me any other details. She denies headache, has no nuchal rigidity, has no fever. Low suspicion of meningitis. Discussed with Dr. Cole. Because of patient's w eakness, metabolic acidosis, dehydration, recommends admission to the hospital. Patient is very agreeable with this. I discussed with Dr. Johnson, patient's provider, patient excepted to telemetry full admission. - Vital Signs Vital signs: Temp Pulse Resp BP Pulse Ox 97.6 F 90 18 147/64 H 100 12/21/19 03:38 12/21/19 04:17 12/21/19 03:38 12/21/19 03:38 12/21/19 03:38 - Laboratory Result Diagrams: 12/20/19 18:07 12/20/19 18:40 Laboratory results interpreted by me: 12/20/19 12/20/19 12/20/19 17:58 18:07 18:40 WBC 15.2 H RBC 5.39 H Hgb 16.2 H Hct 47.9 H RDW 14.6 H Lymph % (Auto) 11.0 L Absolute Neuts (auto) 12.5 H Seg Neutrophils % 82.6 H VBG pH VBG pCO2 VBG HCO3 Sodium 132.7 L Potassium 3.3 L Chloride 97 L Carbon Dioxide 12 L Anion Gap 24 H Glucose 315 H POC Glucose 315 H AST 38 H Alkaline Phosphatase 131 H Urine Protein Urine Glucose (UA) Urine Ketones 12/20/19 12/20/19 19:27 21:36 WBC RBC Hgb Hct RDW Lymph % (Auto) Absolute Neuts (auto) Seg Neutrophils % VBG pH 7.26 L VBG pCO2 30.1 L VBG HCO3 13.1 L Sodium Potassium Chloride Carbon Dioxide Anion Gap Glucose POC Glucose AST Alkaline Phosphatase Urine Protein 100 H Urine Glucose (UA) >=500 H Urine Ketones 80 H Discharge - Discharge Clinical Impression: Weakness, Metabolic acidosis, Hyperglycemia, Unable to ambulate Condition: Stable Disposition: ADMITTED INPATIENT Admitting Provider: [facility] Unit Admitted: Telemetry
[2019-12-20] MEDS: RINGERS SOLUTION,LACTATED 1,000 ML IV PRN ×2 (20:45→22:18)
--- NOTE | 2019-12-20 21:21 | RADIOLOGY REPORT (SQ) ---
EXAM DESCRIPTION: XR CHEST 1 VIEW COMPLETED DATE/TME: 12/20/2019 20:40 CLINICAL HISTORY: 54 years, Female, weakness COMPARISON: Prior study from 09/03/2018 NUMBER OF VIEWS: One TECHNIQUE: Single frontal view of the chest was obtained LIMITATIONS: None. FINDINGS: Cardiac and mediastinal contours are normal in appearance. Lungs are clear. No pleural effusion or pneumothorax. IMPRESSION: No acute disease. copyright 2010 [employer]- All Rights Reserved
--- NOTE | 2019-12-20 21:44 | RADIOLOGY REPORT (SQ) ---
EXAM DESCRIPTION: Noncontrast CT head CLINICAL HISTORY: 54 years Female confusion, unable to ambulate TECHNIQUE: Noncontrast CT head. All CT scans at this facility use dose modulation, iterative reconstruction, and/or weight based dosing when appropriate to reduce radiation dose to as low as reasonably achievable. COMPARISON: None. FINDINGS: [place] matter, white matter, ventricles, and cisterns are within normal limits. No acute hemorrhage or mass effect. Dental note is made of tiny lipomatous densities along the anterior falx, consistent with incidental tiny lipomas. Visualized portions of paranasal sinuses and mastoids are clear. Visualized portions of the calvarium are within normal limits. There is thinning or absence of the ocular lens bilaterally. IMPRESSION: 1. No acute intracranial findings. If there is clinical concern for acute stroke, consider MRI brain as a more sensitive evaluation.
[2019-12-20 21:52] LABS: VENOUS BLOOD BASE EXCESS -12.5 mmol/L; VENOUS BLOOD HCO3 13.1 mmol/L (20-32); VENOUS BLOOD PCO2 30.1 mmHg (35-63); VENOUS BLOOD PH 7.26 (7.30-7.42)
--- NOTE | 2019-12-20 23:17 | EKG REPORT ---
SEVERITY:- ABNORMAL ECG - SINUS RHYTHM LEFT BUNDLE BRANCH BLOCK : Confirmed by: Keenan Alexandre 20-Dec-2019 23:16:55
[2019-12-20] MEDS ORDERED: POTASSIUM CHLORIDE 10 MEQ TABLET.ER PO ONE (23:59)
[2019-12-21] MEDS ORDERED: NORMAL SALINE 1000 ML 1,000 ML IV PRN ×2 (00:38→13:30)
[2019-12-21] MEDS ORDERED: IPRATROPIUM/ALBUTEROL 0.5-2.5 MG/3 ML AMPUL NEB PRN (00:38)
[2019-12-21] MEDS ORDERED: DEXTROSE 50%-WATER 25 GM/50 ML DISP.SYRIN IV PRN ×2 (00:42)
[2019-12-21] MEDS ORDERED: DEXTROSE 40% GEL 15 GM TUBE PO PRN ×2 (00:42)
[2019-12-21] MEDS ORDERED: GLUCAGON,HUMAN RECOMB 1 MG INJ IM PRN (00:42)
[2019-12-21] MEDS ORDERED: CEFEPIME 1 GM/D5W RTU 1 GM/50 ML RTUPB IV ONE (01:15)
[2019-12-21 01:30] LABS: CREATINE KINASE MB 1.81 ng/mL (<4.55)
[2019-12-21 01:36] LABS: TROPONIN I < 0.012 ng/mL
[2019-12-21] MEDS: SODIUM BICARBONATE 650 MG TABLET PO SCH ×3 (05:08→22:17)
[2019-12-21] MEDS ORDERED: SODIUM BICARBONATE 650 MG TABLET PO SCH (06:00)
[2019-12-21] MEDS: INSULIN LISPRO 100 UNIT/ML 3 ML VIAL SUBCUT SCH ×4 (09:08→22:18)
[2019-12-21] MEDS: CEFEPIME 1 GM/D5W RTU 1 GM/50 ML RTUPB IV SCH (09:08)
[2019-12-21] MEDS: DOCUSATE SODIUM 100 MG CAPSULE PO SCH ×2 (09:08→17:10)
[2019-12-21 09:10] LABS: CREATINE KINASE MB 2.56 ng/mL (<4.55); TROPONIN I < 0.012 ng/mL
[2019-12-21] MEDS ORDERED: ENOXAPARIN SODIUM INJ 40 MG/0.4 ML DISP.SYRIN SUBCUT SCH (10:00)
[2019-12-21 10:06] LABS: ABSOLUTE BASOPHILS # (AUTO) 0.1 10^3/uL (0.0-0.2); ABSOLUTE EOSINOPHILS # (AUTO) 0.1 10^3/uL (0.0-0.6); ABSOLUTE LYMPHOCYTES (AUTO) 0.9 10^3/uL (0.5-4.7); ABSOLUTE MONOCYTES (AUTO) 0.6 10^3/uL (0.1-1.4); ABSOLUTE NEUT (AUTO) 8.5 10^3/uL (1.7-8.2); BASOPHILS % (AUTO) 1.1 % (0-2); EOSINOPHILS % (AUTO) 0.9 % (0-6); HEMATOCRIT 42.2 % (36.0-47.0); HEMOGLOBIN 14.8 g/dL (12.0-15.5); LYMPHOCYTES % (AUTO) 8.7 % (13-45); MEAN CORPUSCULAR HEMOGLOBIN 30.8 pg (27.0-33.4); MEAN CORPUSCULAR HGB CONC 35.2 g/dL (32.0-36.0); MEAN CORPUSCULAR VOLUME 88 fl (80-97); MONOCYTES % (AUTO) 6.1 % (3-13); PLATELET COUNT 229 10^3/uL (150-450); RED BLOOD COUNT 4.81 10^6/uL (3.72-5.28); SEGMENTED NEUTROPHILS % (AUTO) 83.2 % (42-78); TOTAL CELLS COUNTED % (AUTO) 100 %; WHITE BLOOD COUNT 10.2 10^3/uL (4.0-10.5)
[2019-12-21 10:16] LABS: BLOOD UREA NITROGEN 13 mg/dL (7-20); CARBON DIOXIDE 11 mmol/L (22-30); CHLORIDE 102 mmol/L (98-107); GLUCOSE 270 mg/dL (75-110); POTASSIUM 3.4 mmol/L (3.6-5.0)
[2019-12-21 10:23] LABS: ANION GAP 23 (5-19)
[2019-12-21 10:43] LABS: ARTERIAL BLOOD BASE EXCESS -12.1 mmol/L; ARTERIAL BLOOD FIO2 ROOM AIR; ARTERIAL BLOOD H2CO3 0.63 mmol/L (1.05-1.35); ARTERIAL BLOOD HCO3 11.2 mmol/L (20-24); ARTERIAL BLOOD O2 SATURATION 98.1 % (94-98); ARTERIAL BLOOD PH 7.35 (7.35-7.45); ARTERIAL BLOOD PO2 115.4 mmHg (80-100); ARTERIAL BLOOD TOTAL CO2 11.8 mmol/L (21-25)
[2019-12-21 10:44] LABS: ARTERIAL BLOOD PCO2 20.9 mmHg (35-45)
[2019-12-21] MEDS ORDERED: DEXTROSE 5%-WATER 1000 ML 1,000 ML with SODIUM BICARBONATE 50 MEQ IV PRN ×2 (11:13)
[2019-12-21] MEDS: PANTOPRAZOLE SODIUM 40 MG VIAL IV SCH (12:14)
[2019-12-21] MEDS ORDERED: TORSEMIDE 20 MG TABLET PO SCH ×2 (12:15→12:30)
--- NOTE | 2019-12-21 12:23 | PDOC H&P ---
History of Present Illness Admission Date/PCP: 12/21/19 00:15 VERONA NARANJO MD Patient complains of: Altered mental status History of Present Illness: MICHAELA ALY is a 54 year old female This is a 54-year-old female came to the emergency department with a chief complaint of weakness and being unable to get up from the floor. Patient stated that she has been lying on the floor for last 3 days could not get up. She stated that she do not have any injury denied any fall. Patient is currently lives with her son and her son called for ambulance. Patient's denied any headache no chest pain no dizziness no vomiting no fever but complaining of abdominal pain. Patient's denied any medications remember anything new. Patient have a history of the A. fib hypertension's type 2 diabetes irritable bowel syndromes and noncompliance Currently have a colonoscopy done by Dr. Cyr which is all stable. When I saw the patient's in the IMCU patient is alert awake oriented but again was complaining some abdominal discomfort and also patient is complaining of she does not know what happened for the last [address] of the head was negative patient's white count was elevated Patient's denied any headache denied any eye problems Denied any cough no congestions Patient is complaining some breathing difficulty but patient's O2 sat is all normal Patient with significant comorbidity we will get the ABG get the MRI of the head and elevated white count will get the CT scan of the abdomen pelvis to rule out diverticulitis with a history of diverticulosis Past Medical History Cardiac Medical History: Reports: Atrial Fibrillation, Congestive Heart Failure, Hyperlipidema, Hypertension - medicated Denies: Coronary Artery Disease, Myocardial Infarction Pulmonary Medical History: Reports: Bronchitis Denies: Asthma, Chronic Obstructive Pulmonary Disease (COPD), Pneumonia Neurological Medical History: Denies: Seizures Endocrine Medical History: Reports: Diabetes Mellitus Type 2 GI Medical History: Reports: Diverticulitis, Gastroesophageal Reflux Disease, Hiatal Hernia Denies: Hepatitis Musculoskeltal Medical History: Reports: Arthritis Hematology: Denies: Anemia, Sickle Cell Disease Infectious Medical History: Denies: Methicillin-Resistant Staph Aureus, Vancomycin-Resistant Enterococci Past Surgical History Past Surgical History: Reports: Amputation - 3rd toe right foot, S ection, Cholecystectomy, Orthopedic Surgery - 3rd toe on right foot amputated Denies: Hysterectomy, Mastectomy, Pacemaker Social History Information Source: Patient Lives with: Family Smoking Status: Unknown if Ever Smoked Frequency of Alcohol Use: None Hx Recreational Drug Use: No Drugs: None Hx Prescription Drug Abuse: No Family History Family History: Arthritis, CAD, CVA, DM, Hyperlipidemia, Hypertension Parental Family History Reviewed: Yes Children Family History Reviewed: Unknown Sibling(s) Family History Reviewed.: Unknown Medication/Allergy Home Medications: Apixaban [Eliquis 5 mg Tablet] 5 mg PO Q12 12/21/19 Atorvastatin Calcium [Lipitor 20 mg Tablet] 20 mg PO DAILY 12/21/19 Bupropion HCl [Bupropion HCl Sr] 150 mg PO Q12 12/21/19 Dexlansoprazole [Dexilant 60 mg Capsule] 60 mg PO DAILY 12/21/19 Empagliflozin [Jardiance] 10 mg PO DAILY 12/21/19 Levocetirizine Dihydrochloride [Xyzal] 5 mg PO QPM 12/21/19 Liraglutide [Victoza 2-Parag] 1.8 mg INJ DAILY 12/21/19 Losartan Potassium [Cozaar 25 mg Tablet] 12.5 mg PO DAILY 12/21/19 Metformin HCl [Metformin HCl ER] 1,000 mg PO BID 12/21/19 Promethazine HCl [Phenergan 25 mg Tablet] 12.5 mg PO Q12HP PRN 12/21/19 Torsemide [Demadex 20 mg Tablet] 20 mg PO Q2D 12/21/19 Allergies/Adverse Reactions: bismuth subsalicylate [From Pepto-Bismol] Allergy (Severe, Verified 12/12/19 16:14) VOMITING ciprofloxacin [From Cipro] Adverse Reaction (Intermediate, Verified 12/12/19 16:14) Dizziness/nasea Review of Systems Constitutional: PRESENT: fatigue, weakness. ABSENT: chills, fever(s), headache(s), weight gain, weight loss Eyes: ABSENT: visual disturbances Ears: ABSENT: hearing changes Cardiovascular: PRESENT: dyspnea on exertion. ABSENT: chest pain, edema, orthropnea, palpitations Respiratory: ABSENT: cough, hemoptysis Gastrointestinal: PRESENT: abdominal pain, nausea. ABSENT: constipation, diarrhea, hematemesis, hematochezia, vomiting Genitourinary: ABSENT: dysuria, hematuria Musculoskeletal: ABSENT: joint swelling Integumentary: ABSENT: rash, wounds Neurological: ABSENT: abnormal gait, abnormal speech, confusion, dizziness, focal weakness, syncope Psychiatric: ABSENT: anxiety, depression, homidical ideation, suicidal ideation Endocrine: ABSENT: cold intolerance, heat intolerance, menstrual abnormalities, polydipsia, polyuria Hematologic/Lymphatic: ABSENT: easy bleeding, easy bruising, lymphadenopathy Physical Exam Vital Signs: Temp Pulse Resp BP Pulse Ox 97.5 F 90 16 141/61 H 100 12/21/19 08:58 12/21/19 10:27 12/21/19 10:27 12/21/19 08:58 12/21/19 10:27 Intake & Output 12/20/19 12/21/19 12/22/19 06:59 06:59 06:59 Intake Total 2150 Output Total 50 Balance 2100 Weight 133.3 kg General appearance: PRESENT: no acute distress, well-developed, well-nourished Head exam: PRESENT: atraumatic, normocephalic Eye exam: PRESENT: conjunctiva pink, EOMI, PERRLA. ABSENT: scleral icterus Ear exam: PRESENT: normal external ear exam Mouth exam: PRESENT: moist, tongue midline Neck exam: PRESENT: full ROM. ABSENT: carotid bruit, JVD, lymphadenopathy, thyromegaly Respiratory exam: PRESENT: clear to auscultation unique Cardiovascular exam: PRESENT: RRR. ABSENT: diastolic murmur, rubs, systolic murmur Pulses: PRESENT: normal dorsalis pedis pul, +2 pedal pulses bilateral Vascular exam: PRESENT: normal capillary refill GI/Abdominal exam: PRESENT: normal bowel sounds, soft. ABSENT: distended, guarding, mass, organolmegaly, rebound, tenderness Rectal exam: PRESENT: deferred Additional comments: On the right lower extremity plantar surface mild callus Neurological exam: PRESENT: alert, awake, oriented to person, oriented to place, oriented to time, oriented to situation, CN II-XII grossly intact. ABSENT: motor sensory deficit Psychiatric exam: PRESENT: appropriate affect, normal mood. ABSENT: homicidal ideation, suicidal ideation Skin exam: PRESENT: dry, intact, warm. ABSENT: cyanosis, rash Results Laboratory Results: 12/21/19 08:06 12/21/19 08:06 12/20/19 12/20/19 12/20/19 18:07 18:07 18:40 WBC 15.2 H RBC 5.39 H Hgb 16.2 H Hct 47.9 H MCV 89 MCH 30.1 MCHC 33.9 RDW 14.6 H Plt Count 288 Seg Neutrophils % 82.6 H Carbonic Acid HCO3/H2CO3 Ratio ABG pH ABG pCO2 ABG pO2 ABG HCO3 ABG O2 Saturation ABG Base Excess VBG pH VBG pCO2 VBG HCO3 VBG Base Excess FiO2 Sodium Cancelled 132.7 L Potassium Cancelled 3.3 L Chloride Cancelled 97 L Carbon Dioxide Cancelled 12 L Anion Gap Cancelled 24 H BUN Cancelled 14 Creatinine Cancelled 0.97 Est GFR ( Amer) Cancelled > 60 Est GFR (Non-Af Amer) Cancelled Glucose Cancelled 315 H Calcium Cancelled 8.7 Magnesium Total Bilirubin Cancelled 0.9 AST Cancelled 38 H Alkaline Phosphatase Cancelled 131 H Total Protein Cancelled 7.1 Albumin Cancelled 3.9 Urine Color Urine Appearance Urine pH Ur Specific [place] Urine Protein Urine Glucose (UA) Urine Ketones Urine Blood Urine Nitrite Ur Leukocyte Esterase Urine WBC (Auto) Urine RBC (Auto) 12/20/19 12/20/19 12/20/19 18:40 19:27 21:36 WBC RBC Hgb Hct MCV MCH MCHC RDW Plt Count Seg Neutrophils % Carbonic Acid HCO3/H2CO3 Ratio ABG pH ABG pCO2 ABG pO2 ABG HCO3 ABG O2 Saturation ABG Base Excess VBG pH 7.26 L VBG pCO2 30.1 L VBG HCO3 13.1 L VBG Base Excess -12.5 FiO2 Sodium Potassium Chloride Carbon Dioxide Anion Gap BUN Creatinine Est GFR ( Amer) Est GFR (Non-Af Amer) Glucose Calcium Magnesium Cancelled Total Bilirubin AST Alkaline Phosphatase Total Protein Albumin Urine Color YELLOW Urine Appearance CLEAR Urine pH 6.0 Ur Specific [place] 1.023 Urine Protein 100 H Urine Glucose (UA) >=500 H Urine Ketones 80 H Urine Blood NEGATIVE Urine Nitrite NEGATIVE Ur Leukocyte Esterase NEGATIVE Urine WBC (Auto) 0 Urine RBC (Auto) 1 12/21/19 12/21/19 12/21/19 00:30 08:06 08:06 WBC 10.2 RBC 4.81 Hgb 14.8 Hct 42.2 MCV 88 MCH 30.8 MCHC 35.2 RDW 14.0 Plt Count 229 Seg Neutrophils % 83.2 H Carbonic Acid HCO3/H2CO3 Ratio ABG pH ABG pCO2 ABG pO2 ABG HCO3 ABG O2 Saturation ABG Base Excess VBG pH VBG pCO2 VBG HCO3 VBG Base Excess FiO2 Sodium 135.7 L Potassium 3.4 L Chloride 102 Carbon Dioxide 11 L Anion Gap 23 H BUN 13 Creatinine 0.80 Est GFR ( Amer) > 60 Est GFR (Non-Af Amer) Glucose 270 H Calcium 9.0 Magnesium 1.8 1.7 Total Bilirubin AST Alkaline Phosphatase Total Protein Albumin Urine Color Urine Appearance Urine pH Ur Specific [place] Urine Protein Urine Glucose (UA) Urine Ketones Urine Blood Urine Nitrite Ur Leukocyte Esterase Urine WBC (Auto) Urine RBC (Auto) 12/21/19 10:22 WBC RBC Hgb Hct MCV MCH MCHC RDW Plt Count Seg Neutrophils % Carbonic Acid 0.63 L HCO3/H2CO3 Ratio 17:1 ABG pH 7.35 ABG pCO2 20.9 L* ABG pO2 115.4 H ABG HCO3 11.2 L ABG O2 Saturation 98.1 H ABG Base Excess -12.1 VBG pH VBG pCO2 VBG HCO3 VBG Base Excess FiO2 ROOM AIR Sodium Potassium Chloride Carbon Dioxide Anion Gap BUN Creatinine Est GFR ( Amer) Est GFR (Non-Af Amer) Glucose Calcium Magnesium Total Bilirubin AST Alkaline Phosphatase Total Protein Albumin Urine Color Urine Appearance Urine pH Ur Specific [place] Urine Protein Urine Glucose (UA) Urine Ketones Urine Blood Urine Nitrite Ur Leukocyte Esterase Urine WBC (Auto) Urine RBC (Auto) 12/20/19 12/20/19 12/21/19 18:40 18:40 00:30 Creatine Kinase 46 36 CK-MB (CK-2) Troponin I < 0.012 12/21/19 12/21/19 12/21/19 00:30 08:06 08:06 Creatine Kinase 165 H CK-MB (CK-2) 1.81 2.56 Troponin I < 0.012 < 0.012 Impressions: Chest X-Ray 12/20/19 20:40 IMPRESSION: No acute disease. copyright 2011 [employer]- All Rights Reserved Head CT 12/20/19 20:40 IMPRESSION: 1. No acute intracranial findings. If there is clinical concern for acute stroke, consider MRI brain as a more sensitive evaluation. Assessment & Plan - Diagnosis (1) Mental status alteration Qualifiers: Altered mental status type: unspecified Qualified Code(s): R41.82 - Altered mental status, unspecified Is this a current diagnosis for this admission?: Yes Plan: Was likely metabolic with the underlying severe acidosis We will repeat the ABG Rule out any infectious process Start on IV antibiotic Get the blood culture urine culture CT abdomen and pelvis Sodium bicarb (2) Abdominal pain Qualifiers: Abdominal location: generalized Qualified Code(s): R10.84 - Generalized abdominal pain Is this a current diagnosis for this admission?: Yes Plan: The CT scan of the abdomen and pelvis with IV and p.o. 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: with skilled nursing use Diabetes me llitus complication status: with other specified complication Qualified C ode(s): E11.69 - Type 2 diabetes mellitus with other specified complication; Z79.4 - snf (current) use of insulin Is this a current diagnosis for this admission?: Yes Plan: Sliding scale (4) Hypertension Qualifiers: Hypertension type: essential hypertension Qualified Code(s): I10 - Essential (primary) hypertension Is this a current diagnosis for this admission?: Yes Plan: Use the current medications (5) Hyperlipidemia Qualifiers: Hyperlipidemia type: unspecified Qualified Code(s): E78.5 - Hyperlipidemia, unspecified Is this a current diagnosis for this admission?: Yes (6) Atrial fibrillation Qualifiers: Atrial fibrillation type: unspecified Qualified Code(s): I48.91 - Unspecified atrial fibrillation Is this a current diagnosis for this admission?: Yes Plan: He on Eliquis (7) Congestive heart failure Qualifiers: Heart failure type: diastolic Heart failure chronicity: chronic Qualified Code(s): I50.32 - Chronic diastolic (congestive) heart failure Is this a current diagnosis for this admission?: Yes Plan: Consult the cardiology (8) Metabolic acidosis Is this a current diagnosis for this admission?: Yes Plan: un clear metabolic cause with underlying hyperglycemia Replace the sodium bicarb rule out other etiology (9) Unable to ambulate Is this a current diagnosis for this admission?: Yes Plan: The physical therapy evaluations (10) Weakness Is this a current diagnosis for this admission?: Yes - Time Time Spent: 50 to 70 Minutes Medications reviewed and adjusted accordingly: Yes Anticipated discharge: Home with Homehealth Within: Other - Inpatient Certification Based on my medical assessment, after consideration of the patient's comorbidities, presenting symptoms, or acuity I expect that the services needed warrant INPATIENT care.: Yes I certify that my determination is in accordance with my understanding of Medicare's requirements for reasonable and necessary INPATIENT services [42 CFR 412.3e].: Yes Medical Necessity: Significant Comorbidiites Make Outpatient Treatment Too Risky, Need Close Monitoring Due to Risk of Patient Decompensation, Need For IV Fluids, Need for IV Antibiotics 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
[2019-12-21] MEDS ORDERED: POTASSIUM CHLORIDE 10 MEQ TABLET.ER PO ONE (13:00)
[2019-12-21] MEDS: BUPROPION HCL 100 MG TABLET PO SCH ×2 (13:27→22:17)
--- NOTE | 2019-12-21 16:08 | RADIOLOGY REPORT (SQ) ---
EXAM DESCRIPTION: CT ABD/PELVIS WITH IV ORAL COMPLETED DATE/TIME: 12/21/2019 3:29 pm REASON FOR STUDY: abd pain COMPARISON: 12/12/2019 TECHNIQUE: CT scan of the abdomen and pelvis performed using helical scanning technique with dynamic intravenous contrast injection. N with oral contrast. Images reviewed with lung, soft tissue, and b one windows. Reconstructed coronal and sagittal MPR images reviewed. Delayed images for evaluation of the urinary system also acquired. All images stored on PACS. All CT scanners at this facility use dose modulation, iterative reconstruction, and/or weight based d osing when appropriate to reduce radiation dose to as low as reasonably achievable (ALARA). [facility]: Dose Right [facility]: CareDose [facility]: Dose Right [facility]: Teradose 4D [facility]: Familonet CONTRAST TYPE AND DOSE: contrast/concentration: Isovue 350.00 mg/ml; Total Contrast Delivered: 100.0 ml; Total Saline Delivered: 72.0 ml RENAL FUNCTION: Not recorded RADIATION DOSE: CT Rad equipment meets quality standard of care and radiation dose reduction techniq ues were employed. CTDIvol: 21.0 - 21.1 mGy. DLP: 2589 mGy-cm.. LIMITATIONS: None. FINDINGS: LOWER CHEST: No significant findings. No nodules or infiltrates. LIVER: Normal size. No masses. No dilated ducts. SPLEEN: Normal size. No focal lesions. PANCREAS: No masses. No significant calcifications. No adjacent inflammation or peripancreatic fluid collections. Pancreatic duct not dilated. GALLBLADDER: Surgically absent. ADRENAL GLANDS: No significant masses or asymmetry. RIGHT KIDNEY AND URETER: No solid masses. No significant calcifications. No hydronephrosis or hyd roureter. LEFT KIDNEY AND URETER: No solid masses. No significant calcifications. No hydronephrosis or hydr oureter. AORTA AND VESSELS: No aneurysm. No dissection. Renal arteries, SMA, celiac without stenosis. RETROPERITONEUM: No retroperitoneal adenopathy, hemorrhage or masses. BOWEL AND PERITONEAL CAVITY: No masses or inflammatory changes. No free fluid or peritoneal masses. No diverticulitis. APPENDIX: Not visualized. PELVIS: No mass. No free fluid. Normal bladder. ABDOMINAL WALL: No masses. No hernias. BONES: No significant or acute findings. OTHER: No other significant finding. IMPRESSION: NO SIGNIFICANT OR ACUTE FINDING IN THE ABDOMEN OR PELVIS ON CT SCAN WITH IV CONTRAST. No evidence for diverticulitis. TECHNICAL DOCUMENTATION: JOB ID: [id number] Quality ID # [id number]: Final reports with documentation of one or more dose reduction techniques (e.g., Au tomated exposure control, adjustment of the mA and/or kV according to patient size, use of iterative reconstruction technique) 2010 [employer]- All Rights Reserved Reading location - IP/workstation name: [email or web address]
[2019-12-21 16:13] LABS: CREATINE KINASE MB 2.86 ng/mL (<4.55)
[2019-12-21 16:16] LABS: TROPONIN I < 0.012 ng/mL
--- NOTE | 2019-12-21 16:24 | RADIOLOGY REPORT (SQ) ---
EXAM DESCRIPTION: MRI HEAD WITHOUT COMPLETED DATE/TIME: 12/21/2019 4:11 pm REASON FOR STUDY: ams COMPARISON: CT 12/20/2019 TECHNIQUE: Multiplanar imaging includes non-contrasted T1, T2, FLAIR, and diffusion with ADC map seq uences. Images stored on PACS. LIMITATIONS: None. FINDINGS: ANATOMY: No anomalies. Normal vascular flow voids. Pituitary fossa normal. CSF SPACES: Normal in size and contour. No hemorrhage. CEREBRUM: Sulci and gyri normal in size and contour. Normal white matter signal on FLAIR imaging. No evidence of hemorrhage, mass, or extraaxial fluid collection. POSTERIOR FOSSA: No signal alteration. No hemorrhage. No edema, masses or mass effect. Internal syeda tory canals, cerebello-pontine angles, mastoids normal. DIFFUSION IMAGING: Negative for acute or sub-acute infarction. ORBITS: No masses. Globes normal. PARANASAL SINUSES: No fluid levels. Mucosa normal. OTHER: No other significant finding. IMPRESSION: NORMAL MRI OF THE BRAIN WITHOUT INTRAVENOUS GADOLINIUM CONTRAST. EVIDENCE OF ACUTE STROKE: NO. TECHNICAL DOCUMENTATION: JOB ID: [id number] [employer]- All Rights Reserved Reading location - IP/workstation name: [email or web address]
[2019-12-21] MEDS: CETIRIZINE 5 MG TABLET PO SCH (17:11)
--- NOTE | 2019-12-21 19:43 | PDOC CONSULTATION ---
Consultation Consult Date: 12/21/19 Attending physician:: VERONA JOHNSON Provider Consulted: JUAN C VERMA Consult reason:: Dyspnea History of Present Illness Admission Date/PCP: 12/21/19 00:15 VERONA JOHNSON MD Patient complains of: Dyspnea History of Present Illness: MICHAELA ALY is a 54 year old female came to the emergency department with a chief complaint of weakness and being unable to get up from the floor. Patient stated that she has been lying on the floor for last 3 days could not get up. She stated that she do not have any injury denied any fall. Patient is currently lives with her son and her son called for ambulance. Patient's denied any headache no chest pain no dizziness no vomiting no fever but complaining of abdominal pain. Patient's denied any medications remember anything new. Patient have a history of the A. fib hypertension's type 2 diabetes irritable bowel syndromes and noncompliance Recently had a colonoscopy done by Dr. Cyr which is all stable. When I saw the patient's in the IMCU patient is alert awake oriented but again was complaining some abdominal discomfort and also patient is complaining of she does not know what happened for the last [address] of the head was negative patient's white count was elevated Patient's denied any headache denied any eye problems Denied any cough no congestions Patient is complaining some breathing difficulty but patient's O2 sat is all normal Patient with significant comorbidity we will get the ABG get the MRI of the head and elevated white count will get the CT scan of the abdomen pelvis to rule out diverticulitis with a history of diverticulosis This history obtained by Dr. Johnson was reviewed. Patient on direct questioning denied any chest pain. She denied any prior history of syncope or near syncope. Patient does have history of atrial fibrillation. On questioning patient just complained of some dyspnea today. Past Medical History Cardiac Medical History: Reports: Atrial Fibrillation, Congestive Heart Failure, Hyperlipidema, Hypertension - medicated Denies: Coronary Artery Disease, Myocardial Infarction Pulmonary Medical History: Reports: Bronchitis Denies: Asthma, Chronic Obstructive Pulmonary Disease (COPD), Pneumonia Neurological Medical History: Denies: Seizures Endocrine Medical History: Reports: Diabetes Mellitus Type 2 GI Medical History: Reports: Diverticulitis, Gastroesophageal Reflux Disease, Hiatal Hernia Denies: Hepatitis Musculoskeltal Medical History: Reports: Arthritis Hematology: Denies: Anemia, Sickle Cell Disease Infectious Medical History: Denies: Methicillin-Resistant Staph Aureus, Vancomycin-Resistant Enterococci Past Surgical History Past Surgical History: Reports: Amputation - 3rd toe right foot, Section, Cholecystectomy, Orthopedic Surgery - 3rd toe on right foot amputated Denies: Hysterectomy, Mastectomy, Pacemaker Social History Information Source: Patient Lives with: Family Smoking Status: Unknown if Ever Smoked Frequency of Alcohol Use: None Hx Recreational Drug Use: No Drugs: None Hx Prescription Drug Abuse: No - Advance Directive Resuscitation Status: Full Code Family History Family History: Arthritis, CAD, CVA, DM, Hyperlipidemia, Hypertension Family History: Negative for premature coronary artery disease or sudden cardiac in the family amongst first degree relatives. Parental Family History Reviewed: Yes Children Family History Reviewed: Yes Sibling(s) Family History Reviewed.: Yes Medication/Allergy Home Medications: Apixaban [Eliquis 5 mg Tablet] 5 mg PO Q12 12/21/19 Atorvastatin Calcium [Lipitor 20 mg Tablet] 20 mg PO DAILY 12/21/19 Bupropion HCl [Bupropion HCl Sr] 150 mg PO Q12 12/21/19 Dexlansoprazole [Dexilant 60 mg Capsule] 60 mg PO DAILY 12/21/19 Empagliflozin [Jardiance] 10 mg PO DAILY 12/21/19 Levocetirizine Dihydrochloride [Xyzal] 5 mg PO QPM 12/21/19 Liraglutide [Victoza 2-Parag] 1.8 mg INJ DAILY 12/21/19 Losartan Potassium [Cozaar 25 mg Tablet] 12.5 mg PO DAILY 12/21/19 Metformin HCl [Metformin HCl ER] 1,000 mg PO BID 12/21/19 Promethazine HCl [Phenergan 25 mg Tablet] 12.5 mg PO Q12HP PRN 12/21/19 Torsemide [Demadex 20 mg Tablet] 20 mg PO Q2D 12/21/19 Allergies/Adverse Reactions: bismuth subsalicylate [From Pepto-Bismol] Allergy (Severe, Verified 12/12/19 16:14) VOMITING ciprofloxacin [From Cipro] Adverse Reaction (Intermediate, Verified 12/12/19 16:14) Dizziness/nasea Review of Systems Review of Systems: Please see history of present illness and past medical history as wall. Constitutional: No fever but chills reported. Head : No recent chronic headaches, recent head injury. Eyes: No recent eye pain, diplopia, redness, discharge, acute visual changes. Ears: No recent chronic ear pain, acute hearing loss, ear discharge. Oral cavity: No recent ulcerations, bleeding, oral cavity discomfort. Neck: No recent acute neck pain reported. Hematologic: No recent easy bruising or bleeding. Lymphatic: No recent lymph node enlargement reported. Cardiovascular system review: See history of present illness. Respiratory system review: No hemoptysis or blood clots in the lungs reported. Mild Shortness of breath on exertion Gastrointestinal system review: Negative for any recent acute hematemesis, melena. Genitourinary system review: No recent acute or chronic hematuria, flank pain, UTI etc. reported. Skin system review: Negative for any recent abnormal bruising, no rash, no pruritus reported. Neurologic: No prior history of strokes, mini strokes, seizure disorder. Psychologic: No history of major psychosis or major depression reported. Musculoskeletal: Minor aches and pains reported. No acute joint swelling reported. Endocrine: No recent polyuria, polydipsia, recent heat or cold intolerance. Physical Exam Vital Signs: Temp Pulse Resp BP Pulse Ox 97.6 F 88 18 140/63 H 100 12/21/19 16:18 12/21/19 16:18 12/21/19 16:18 12/21/19 16:18 12/21/19 16:18 Intake & Output 12/20/19 12/21/19 12/22/19 06:59 06:59 06:59 Intake Total 2150 410 Output Total 50 225 Balance 2100 185 Weight 133.3 kg Exam: GENERAL: well-nourished and in no acute distress. Alert and oriented x3 HEAD: Atraumatic, normocephalic. EYES: RAUL, sclera anicteric, conjunctiva are normal. ENT: Moist mucous membranes. No oral ulcerations or bleeding gums noted. No obvious ear, nose or throat abnormalities noted. NECK: supple without lymphadenopathy. Trachea is central. No cervical or axillary lymphadenopathy noted. Carotids are 2+, JVD WNL LUNGS: Breath sounds clear bilaterally. No wheezes rales or rhonchi noted. No significant dullness noted on percussion. CHEST: Palpation of the chest wall shows no significant chest wall tenderness. 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 ABDOMEN: Soft, no significant tenderness appreciated, normoactive bowel sounds. No guarding, no rebound. No rigidity noted . No masses appreciated. EXTREMITIES: Pedal pulses are 1-2+, no calf tenderness noted. No clubbing or cyanosis. 1+ pedal edema noted NEUROLOGICAL: Focused neurological exam showed no significant neurologic deficit. Normal speech, no focal weakness appreciated. PSYCH: Normal mood, normal affect. Judgment and insight within normal limits. SKIN: No significant ecchymosis, skin is noted to be warm. MUSCULOSKELETAL EXAM: No significant acute joint swelling noted. Results Laboratory Results: 12/21/19 08:06 12/21/19 08:06 12/20/19 12/20/19 12/20/19 18:40 18:40 19:27 WBC RBC Hgb Hct MCV MCH MCHC RDW Plt Count Seg Neutrophils % Carbonic Acid HCO3/H2CO3 Ratio ABG pH ABG pCO2 ABG pO2 ABG HCO3 ABG O2 Saturation ABG Base Excess VBG pH VBG pCO2 VBG HCO3 VBG Base Excess FiO2 Sodium 132.7 L Potassium 3.3 L Chloride 97 L Carbon Dioxide 12 L Anion Gap 24 H BUN 14 Creatinine 0.97 Est GFR ( Amer) > 60 Glucose 315 H Lactic Acid Calcium 8.7 Magnesium Cancelled Total Bilirubin 0.9 AST 38 H Alkaline Phosphatase 131 H Total Protein 7.1 Albumin 3.9 Urine Color YELLOW Urine Appearance CLEAR Urine pH 6.0 Ur Specific [place] 1.023 Urine Protein 100 H Urine Glucose (UA) >=500 H Urine Ketones 80 H Urine Blood NEGATIVE Urine Nitrite NEGATIVE Ur Leukocyte Esterase NEGATIVE Urine WBC (Auto) 0 Urine RBC (Auto) 1 12/20/19 12/21/19 12/21/19 21:36 00:30 08:06 WBC 10.2 RBC 4.81 Hgb 14.8 Hct 42.2 MCV 88 MCH 30.8 MCHC 35.2 RDW 14.0 Plt Count 229 Seg Neutrophils % 83.2 H Carbonic Acid HCO3/H2CO3 Ratio ABG pH ABG pCO2 ABG pO2 ABG HCO3 ABG O2 Saturation ABG Base Excess VBG pH 7.26 L VBG pCO2 30.1 L VBG HCO3 13.1 L VBG Base Excess -12.5 FiO2 Sodium Potassium Chloride Carbon Dioxide Anion Gap BUN Creatinine Est GFR ( Amer) Glucose Lactic Acid Calcium Magnesium 1.8 Total Bilirubin AST Alkaline Phosphatase Total Protein Albumin Urine Color Urine Appearance Urine pH Ur Specific [place] Urine Protein Urine Glucose (UA) Urine Ketones Urine Blood Urine Nitrite Ur Leukocyte Esterase Urine WBC (Auto) Urine RBC (Auto) 12/21/19 12/21/19 12/21/19 08:06 10:22 12:09 WBC RBC Hgb Hct MCV MCH MCHC RDW Plt Count Seg Neutrophils % Carbonic Acid 0.63 L HCO3/H2CO3 Ratio 17:1 ABG pH 7.35 ABG pCO2 20.9 L* ABG pO2 115.4 H ABG HCO3 11.2 L ABG O2 Saturation 98.1 H ABG Base Excess -12.1 VBG pH VBG pCO2 VBG HCO3 VBG Base Excess FiO2 ROOM AIR Sodium 135.7 L Potassium 3.4 L Chloride 102 Carbon Dioxide 11 L Anion Gap 23 H BUN 13 Creatinine 0.80 Est GFR ( Amer) > 60 Glucose 270 H Lactic Acid 1.1 Calcium 9.0 Magnesium 1.7 Total Bilirubin AST Alkaline Phosphatase Total Protein Albumin Urine Color Urine Appearance Urine pH Ur Specific [place] Urine Protein Urine Glucose (UA) Urine Ketones Urine Blood Urine Nitrite Ur Leukocyte Esterase Urine WBC (Auto) Urine RBC (Auto) 12/20/19 12/20/19 12/21/19 18:40 18:40 00:30 Creatine Kinase 46 36 CK-MB (CK-2) Troponin I < 0.012 12/21/19 12/21/19 12/21/19 00:30 08:06 08:06 Creatine Kinase 165 H CK-MB (CK-2) 1.81 2.56 Troponin I < 0.012 < 0.012 12/21/19 12/21/19 14:50 14:50 Creatine Kinase 236 H CK-MB (CK-2) 2.86 Troponin I < 0.012 EKG Comments: Sinus rhythm with left bundle branch block. Impressions: Chest X-Ray 12/20/19 20:40 IMPRESSION: No acute disease. copyright 2011 [employer]- All Rights Reserved Head CT 12/20/19 20:40 IMPRESSION: 1. No acute intracranial findings. If there is clinical concern for acute stroke, consider MRI brain as a more sensitive evaluation. Abdomen/Pelvis CT 12/21/19 00:00 IMPRESSION: NO SIGNIFICANT OR ACUTE FINDING IN THE ABDOMEN OR PELVIS ON CT SCAN WITH IV CONTRAST. No evidence for diverticulitis. Head MRI 12/21/19 00:00 IMPRESSION: NORMAL MRI OF THE BRAIN WITHOUT INTRAVENOUS GADOLINIUM CONTRAST. EVIDENCE OF ACUTE STROKE: NO. Assessment & Plan - Diagnosis (1) Atrial fibrillation Qualifiers: Atrial fibrillation type: paroxysmal Qualified Code(s): I48.0 - Paroxysmal atrial fibrillation Is this a current diagnosis for this admission?: Yes (2) Congestive heart failure Qualifiers: Heart failure type: diastolic Heart failure chronicity: chronic Qualified Code(s): I50.32 - Chronic diastolic (congestive) heart failure Is this a current diagnosis for this admission?: Yes (3) Hyperlipidemia Qualifiers: Hyperlipidemia type: unspecified Qualified Code(s): E78.5 - Hyperlipidemia, unspecified Is this a current diagnosis for this admission?: Yes (4) Mental status alteration Qualifiers: Altered mental status type: unspecified Qualified Code(s): R41.82 - Altered mental status, unspecified Is this a current diagnosis for this admission?: Yes (5) Type 2 diabetes mellitus Qualifiers: Diabetes mellitus instructor bridge insulin use: with instructor bridge use Diabetes mellitus complication status: with other specified complication Qualified Code(s): E11.69 - Type 2 diabetes mellitus with other specified complication; Z79.4 - intermediate (current) use of insulin Is this a current diagnosis for this admission?: Yes (6) Weakness Is this a current diagnosis for this admission?: Yes - Notes Notes: Mental status changes and fall: Exact etiology not clear but PMD is evaluating this in a proper fashion. CT of the head obtained and reviewed. MRI of the head is pending. Patient being monitored. Generalized weakness: Cause not clear. Possible viral syndrome. Urinalysis was negative for UTI. Patient does have some cough. Congestive heart failure: Diastolic currently compensated by exam. This is chronic. Continue maintenance diuretic therapy. Atrial fibrillation paroxysmal: Currently in sinus rhythm. Continue cardiac monitoring. Continue Eliquis therapy. Diabetes: Blood sugars noted to be somewhat high but reasonably well controlled. Patient has very low bicarb level. Possibly related to diabetic ketoacidosis. Possible starvation ketoacidosis. - Time Time Spent: 30 to 50 Minutes Medications reviewed and adjusted accordingly: Yes
[2019-12-21] MEDS: ATORVASTATIN CALCIUM 20 MG TABLET PO SCH (22:18)
--- NOTE | 2019-12-22 00:13 | EKG REPORT ---
SEVERITY:- ABNORMAL ECG - SINUS RHYTHM LEFT BUNDLE BRANCH BLOCK : Confirmed by: Keenan Alexandre 22-Dec-2019 00:12:44
[2019-12-22] MEDS: PANTOPRAZOLE SODIUM 40 MG VIAL IV SCH ×3 (01:12→21:47)
[2019-12-22] MEDS: CEFEPIME 1 GM/D5W RTU 1 GM/50 ML RTUPB IV SCH ×3 (01:15→21:49)
[2019-12-22] MEDS: SODIUM BICARBONATE 650 MG TABLET PO SCH ×3 (05:12→21:48)
[2019-12-22] MEDS: BUPROPION HCL 100 MG TABLET PO SCH ×3 (05:12→21:48)
[2019-12-22 07:09] LABS: HEMATOCRIT 36.3 % (36.0-47.0); HEMOGLOBIN 13.1 g/dL (12.0-15.5); MEAN CORPUSCULAR HGB CONC 36.2 g/dL (32.0-36.0); MEAN CORPUSCULAR VOLUME 86 fl (80-97); PLATELET COUNT 207 10^3/uL (150-450); RED BLOOD COUNT 4.23 10^6/uL (3.72-5.28); RED CELL DISTRIBUTION WIDTH 14.1 % (11.5-14.0); WHITE BLOOD COUNT 7.8 10^3/uL (4.0-10.5)
[2019-12-22 07:28] LABS: ALBUMIN 2.9 g/dL (3.5-5.0); ALKALINE PHOSPHATASE 115 U/L (38-126); ANION GAP 12 (5-19); ASPARTATE AMINO TRANSFERASE 23 U/L (14-36); BILIRUBIN,DIRECT 0.1 mg/dL (0.0-0.4); BILIRUBIN,TOTAL 0.6 mg/dL (0.2-1.3); BLOOD UREA NITROGEN 9 mg/dL (7-20); CALCIUM 8.5 mg/dL (8.4-10.2); CARBON DIOXIDE 17 mmol/L (22-30); CHLORIDE 103 mmol/L (98-107); GLUCOSE 302 mg/dL (75-110); POTASSIUM 3.3 mmol/L (3.6-5.0); TOTAL PROTEIN 5.4 g/dL (6.3-8.2)
[2019-12-22 07:50] LABS: ABSOLUTE LYMPHOCYTES# (MANUAL) 0.9 10^3/uL (0.5-4.7); ABSOLUTE MONOCYTES # (MANUAL) 0.4 10^3/uL (0.1-1.4); BASOPHILS % (MANUAL) 0 % (0-2); EOSINOPHILS % (MANUAL) 0 % (0-6); LYMPHOCYTES % (MANUAL) 11 % (13-45); MONOCYTES % (MANUAL) 5 % (3-13); SEGMENTED NEUTROPHILS % (MAN) 84 % (42-78); TOTAL CELLS COUNTED 100
[2019-12-22 07:52] LABS: ANISOCYTOSIS SLIGHT; PLATELET COMMENT ADEQUATE; TOXIC GRANULATION SLIGHT
[2019-12-22] MEDS ORDERED: TORSEMIDE 20 MG TABLET PO SCH (08:00)
[2019-12-22] MEDS: ACETAMINOPHEN 325 MG TABLET PO PRN (08:24)
[2019-12-22] MEDS: INSULIN LISPRO 100 UNIT/ML 3 ML VIAL SUBCUT SCH ×4 (08:25→21:47)
[2019-12-22] MEDS ORDERED: INSULIN GLARGINE,HUM.REC.ANLOG 1,000 UNIT/10 ML VIAL (PYX) SUBCUT ONE (08:30)
--- NOTE | 2019-12-22 09:42 | RADIOLOGY REPORT (SQ) ---
EXAM DESCRIPTION: CHEST SINGLE VIEW COMPLETED DATE/TIME: 12/22/2019 9:13 am REASON FOR STUDY: compare to previous chest xray COMPARISON: 12/20/2019 EXAM PARAMETERS: NUMBER OF VIEWS: One view. TECHNIQUE: Single frontal radiographic view of the chest acquired. RADIATION DOSE: NA LIMITATIONS: None. FINDINGS: LUNGS AND PLEURA: No opacities, masses or pneumothorax. No pleural effusion. MEDIASTINUM AND HILAR STRUCTURES: No masses. Contour normal. HEART AND VASCULAR STRUCTURES: Heart normal in size. Normal vasculature. BONES: No acute findings. HARDWARE: None in the chest. OTHER: No other significant finding. IMPRESSION: Stable chest radiograph without evidence of acute cardiopulmonary process. TECHNICAL DOCUMENTATION: JOB ID: [id number] [employer]- All Rights Reserved Reading location - IP/workstation name: [email or web address]
[2019-12-22] MEDS ORDERED: (PENDING PHARMACY ID) (Empagliflozin [Jardiance] 10 MG) PO SCH (10:00)
[2019-12-22] MEDS ORDERED: (PENDING PHARMACY ID) (Liraglutide [Victoza 2-Pak] 1.8 MG) INJ SCH (10:00)
[2019-12-22] MEDS ORDERED: PANTOPRAZOLE SODIUM 40 MG TABLET.DR PO SCH (10:00)
--- NOTE | 2019-12-22 10:26 | PDOC PROGRESS REPORT ---
Subjective Progress Note for:: 12/22/19 Subjective:: Patient is feeling better CO2 is getting better I think patients have a ketoacidosis from the diabetes Patient's MRI of the head is negative CT scan of the abdomen and pelvis is all negative And is more alert awake oriented today Patient is seen by the cardiology of the heart failure and Karmen burleson currently all stable Reason For Visit: METABOLIC ACIDOSIS Physical Exam Vital Signs: Temp Pulse Resp BP Pulse Ox 98 F 86 16 134/75 H 100 12/22/19 04:00 12/22/19 07:00 12/22/19 04:00 12/22/19 04:00 12/22/19 04:00 Intake & Output 12/21/19 12/22/19 12/23/19 06:59 06:59 06:59 Intake Total 2150 696 1999 Output Total 50 1225 Balance 2100 -529 1999 Weight 133.3 kg 134.8 kg General appearance: PRESENT: no acute distress, well-developed, well-nourished Head exam: PRESENT: atraumatic, normocephalic Eye exam: PRESENT: conjunctiva pink, EOMI, PERRLA. ABSENT: scleral icterus Ear exam: PRESENT: normal external ear exam Mouth exam: PRESENT: moist, tongue midline Neck exam: PRESENT: full ROM. ABSENT: carotid bruit, JVD, lymphadenopathy, thyromegaly Respiratory exam: PRESENT: clear to auscultation unique Cardiovascular exam: PRESENT: RRR. ABSENT: diastolic murmur, rubs, systolic murmur Pulses: PRESENT: normal dorsalis pedis pul, +2 pedal pulses bilateral Vascular exam: PRESENT: normal capillary refill GI/Abdominal exam: PRESENT: normal bowel sounds, soft. ABSENT: distended, guarding, mass, organolmegaly, rebound, tenderness Rectal exam: PRESENT: deferred Musculoskeletal exam: PRESENT: ambulatory Neurological exam: PRESENT: alert, awake, oriented to person, oriented to place, oriented to time, oriented to situation, CN II-XII grossly intact. ABSENT: motor sensory deficit Psychiatric exam: PRESENT: appropriate affect, normal mood. ABSENT: homicidal ideation, suicidal ideation Skin exam: PRESENT: dry, intact, warm. ABSENT: cyanosis, rash Results Laboratory Results: 12/22/19 06:57 12/22/19 06:57 12/21/19 12/21/19 12/21/19 08:06 10:22 12:09 WBC RBC Hgb Hct MCV MCH MCHC RDW Plt Count Seg Neutrophils % Carbonic Acid 0.63 L HCO3/H2CO3 Ratio 17:1 ABG pH 7.35 ABG pCO2 20.9 L* ABG pO2 115.4 H ABG HCO3 11.2 L ABG O2 Saturation 98.1 H ABG Base Excess -12.1 FiO2 ROOM AIR Sodium 135.7 L Potassium 3.4 L Chloride 102 Carbon Dioxide 11 L Anion Gap 23 H BUN 13 Creatinine 0.80 Est GFR ( Amer) > 60 Glucose 270 H Lactic Acid 1.1 Calcium 9.0 Magnesium 1.7 Total Bilirubin AST Alkaline Phosphatase Total Protein Albumin 12/22/19 12/22/19 06:57 06:57 WBC 7.8 RBC 4.23 Hgb 13.1 Hct 36.3 MCV 86 MCH 31.0 MCHC 36.2 H RDW 14.1 H Plt Count 207 Seg Neutrophils % Not Reportable Carbonic Acid HCO3/H2CO3 Ratio ABG pH ABG pCO2 ABG pO2 ABG HCO3 ABG O2 Saturation ABG Base Excess FiO2 Sodium 132.4 L Potassium 3.3 L Chloride 103 Carbon Dioxide 17 L Anion Gap 12 BUN 9 Creatinine 0.70 Est GFR ( Amer) > 60 Glucose 302 H Lactic Acid Calcium 8.5 Magnesium 1.7 Total Bilirubin 0.6 AST 23 Alkaline Phosphatase 115 Total Protein 5.4 L Albumin 2.9 L 12/20/19 12/20/19 12/21/19 18:40 18:40 00:30 Creatine Kinase 46 36 CK-MB (CK-2) Troponin I < 0.012 NT-Pro-B Natriuret Pep 12/21/19 12/21/19 12/21/19 00:30 08:06 08:06 Creatine Kinase 165 H CK-MB (CK-2) 1.81 2.56 Troponin I < 0.012 < 0.012 NT-Pro-B Natriuret Pep 12/21/19 12/21/19 12/21/19 14:50 14:50 14:50 Creatine Kinase 236 H CK-MB (CK-2) 2.86 Troponin I < 0.012 NT-Pro-B Natriuret Pep 219 H Impressions: Head CT 12/20/19 20:40 IMPRESSION: 1. No acute intracranial findings. If there is clinical concern for acute stroke, consider MRI brain as a more sensitive evaluation. Abdomen/Pelvis CT 12/21/19 00:00 IMPRESSION: NO SIGNIFICANT OR ACUTE FINDING IN THE ABDOMEN OR PELVIS ON CT SCAN WITH IV CONTRAST. No evidence for diverticulitis. Head MRI 12/21/19 00:00 IMPRESSION: NORMAL MRI OF THE BRAIN WITHOUT INTRAVENOUS GADOLINIUM CONTRAST. EVIDENCE OF ACUTE STROKE: NO. Chest X-Ray 12/22/19 00:00 IMPRESSION: Stable chest radiograph without evidence of acute cardiopulmonary process. Assessment & Plan - Diagnosis (1) Mental status alteration Qualifiers: Altered mental status type: unspecified Qualified Code(s): R41.82 - Altered mental status, unspecified Is this a current diagnosis for this admission?: Yes Plan: Is likely from ketoacidosis now the anion gap is all normal (2) Abdominal pain Qualifiers: Abdominal location: generalized Qualified Code(s): R10.84 - Generalized abdominal pain Is this a current diagnosis for this admission?: Yes Plan: Still complaining of some abdominal discomfort I think patient have irritable bowel syndromes with a gastro-porosis will continues the current medications consult the Dr. Cyr (3) Type 2 diabetes mellitus Qualifiers: Diabetes mellitus fci insulin use: with fci use Diabetes mellitus complication status: with other specified complication Qualified Code(s): E11.69 - Type 2 diabetes mellitus with other specified complication; Z79.4 - continuous churn buttermaker (current) use of insulin Is this a current diagnosis for this admission?: Yes Plan: We will start the patient on insulin (4) Hypertension Qualifiers: Hypertension type: essential hypertension Qualified Code(s): I10 - Essential (primary) hypertension Is this a current diagnosis for this admission?: Yes Plan: Use the current medications (5) Hyperlipidemia Qualifiers: Hyperlipidemia type: unspecified Qualified Code(s): E78.5 - Hyperlipidemia, unspecified Is this a current diagnosis for this admission?: Yes (6) Atrial fibrillation Qualifiers: Atrial fibrillation type: paroxysmal Qualified Code(s): I48.0 - Paroxysmal atrial fibrillation Is this a current diagnosis for this admission?: Yes (7) Congestive heart failure Qualifiers: Heart failure type: diastolic Heart failure chronicity: chronic Qualified Code(s): I50.32 - Chronic diastolic (congestive) heart failure Is this a current diagnosis for this admission?: Yes (8) Metabolic acidosis Is this a current diagnosis for this admission?: Yes Plan: Patient anion gap is all getting better I think most likely a from the diabetic ketoacidosis will continues the IV fluid stop the sodium bicarb more tight control this blood sugars with the insulin (9) Unable to ambulate Is this a current diagnosis for this admission?: Yes Plan: The physical therapy evaluations (10) Weakness Is this a current diagnosis for this admission?: Yes (11) Diabetic ketoacidosis Qualifiers: Diabetes mellitus type: type 2 Diabetes mellitus complication detail: without coma Qualified Code(s): E11.10 - Type 2 diabetes mellitus with k etoacidosis without coma Is this a current diagnosis for this admission?: Yes Plan: Continues to IV fluid Insulin (12) Noncompliance Is this a current diagnosis for this admission?: Yes - Time Time Spent with patient: 15-24 minutes Level of Care: IMCU Medications reviewed and adjusted accordingly: Yes Anticipated discharge: Other Within: Other - Plan Summary Plan Summary: I think patient anion gap is all normal Patient's CO2 is getting better Will continues to IV fluid start on the Lantus
[2019-12-22] MEDS: DOCUSATE SODIUM 100 MG CAPSULE PO SCH ×2 (10:28→17:49)
[2019-12-22] MEDS: APIXABAN 5 MG TABLET PO SCH ×2 (10:29→21:48)
[2019-12-22] MEDS: LOSARTAN POTASSIUM 25 MG TABLET PO SCH (10:29)
[2019-12-22] MEDS: NORMAL SALINE 1000 ML 1,000 ML IV PRN ×2 (10:32→17:51)
--- NOTE | 2019-12-22 12:53 | RADIOLOGY REPORT (SQ) ---
EXAM DESCRIPTION: NM LUNG VENT/PERF SCAN COMPLETED DATE/TIME: 12/22/2019 12:19 pm REASON FOR STUDY: abnormal lab COMPARISON: 12/22/2019 radiograph RADIONUCLIDE AND DOSE: 5.1 millicuries TC-99m MAA Intravenous 31.5 millicuries TC-99m DTPA Inhaled aerosol TECHNIQUE: Anterior posterior views of the lungs acquired post ventilation of DTPA aerosol. 6 views of the lungs acquired following injection of MAA. LIMITATIONS: None. FINDINGS: VENTILATION: Symmetric and homogeneous distribution of DTPA aerosol during ventilatory pha se. No significant areas of photopenia. Evidence of ingested radiotracer. PERFUSION: Perfusion images with normal homogenous activity and no wedge-shaped or segmental defects. No ventilation-perfusion mismatches. OTHER: No other significant finding. IMPRESSION: No mismatched perfusion defects to suggest pulmonary embolus. Negative V/Q scan for pul monary embolus. TECHNICAL DOCUMENTATION: JOB ID: [id number] [employer]- All Rights Reserved Reading location - IP/workstation name: [email or web address]
[2019-12-22] MEDS: CETIRIZINE 5 MG TABLET PO SCH (17:50)
[2019-12-22] MEDS: ATORVASTATIN CALCIUM 20 MG TABLET PO SCH (21:48)
[2019-12-22] MEDS ORDERED: INSULIN GLARGINE,HUM.REC.ANLOG 1,000 UNIT/10 ML VIAL SUBCUT SCH (22:00)
[2019-12-22] MEDS ORDERED: MAG HYDROX/AL HYDROX/SIMETH SUSP 30 ML UDCUP PO PRN (22:16)
[2019-12-23] MEDS: BUPROPION HCL 100 MG TABLET PO SCH ×3 (06:43→22:11)
[2019-12-23] MEDS: NORMAL SALINE 1000 ML 1,000 ML IV PRN (06:45)
[2019-12-23 07:17] LABS: ANION GAP 11 (5-19); BLOOD UREA NITROGEN 12 mg/dL (7-20); CALCIUM 8.5 mg/dL (8.4-10.2); CARBON DIOXIDE 21 mmol/L (22-30); CHLORIDE 101 mmol/L (98-107); GLUCOSE 320 mg/dL (75-110); POTASSIUM 3.1 mmol/L (3.6-5.0)
[2019-12-23 07:32] LABS: ABSOLUTE EOSINOPHILS # (AUTO) 0.2 10^3/uL (0.0-0.6); ABSOLUTE LYMPHOCYTES (AUTO) 1.2 10^3/uL (0.5-4.7); ABSOLUTE MONOCYTES (AUTO) 0.7 10^3/uL (0.1-1.4); BASOPHILS % (AUTO) 0.6 % (0-2); EOSINOPHILS % (AUTO) 2.3 % (0-6); HEMOGLOBIN 13.2 g/dL (12.0-15.5); LYMPHOCYTES % (AUTO) 16.6 % (13-45); MEAN CORPUSCULAR HEMOGLOBIN 30.4 pg (27.0-33.4); MEAN CORPUSCULAR HGB CONC 35.6 g/dL (32.0-36.0); MEAN CORPUSCULAR VOLUME 85 fl (80-97); MONOCYTES % (AUTO) 10.3 % (3-13); PLATELET COUNT 212 10^3/uL (150-450); RED BLOOD COUNT 4.34 10^6/uL (3.72-5.28); RED CELL DISTRIBUTION WIDTH 13.8 % (11.5-14.0); SEGMENTED NEUTROPHILS % (AUTO) 70.2 % (42-78); TOTAL CELLS COUNTED % (AUTO) 100 %; WHITE BLOOD COUNT 7.1 10^3/uL (4.0-10.5)
[2019-12-23] MEDS ORDERED: INSULIN GLARGINE,HUM.REC.ANLOG 1,000 UNIT/10 ML VIAL (PYX) SUBCUT ONE (08:00)
--- NOTE | 2019-12-23 08:04 | CDI QUERY ---
CDI Query CDI Review: Dear Provider: To better reflect your patients severity of illness, morbidity, and resource utilization Please specify and document in the Progress Notes and Discharge Summary if you are monitoring / treating / evaluating any of the following conditions: Query Clinical indicators Metabolic encephalopathy Toxic encephalopathy Delirium Unable to determine Other Per H&P: This is a 54-year-old female came to the emergency department with a chief complaint of weakness and being unable to get up from the floor. Mental status alteration Was likely metabolic with the underlying severe acidosis Labs: Sodium 135.7 Potassium 3.4 Anion Gap 23 Glucose 270 WBC 15.2 Per Progress Notes: Mental status alteration Is likely from ketoacidosis now the anion gap is all normal The terms probable, suspected, likely, possible or still to be ruled out may be used if you are unable to determine the exact nature of a condition. Thank you, Clinical Documentation Physician Advisors SHELBIE Dickey RN, BSN RN [email or web address] Office [phone] Office [phone]
[2019-12-23] MEDS ORDERED: POTASSIUM CHLORIDE 20 MEQ PACKET PO ONE (08:13)
[2019-12-23] MEDS ORDERED: NORMAL SALINE 1000 ML 1,000 ML IV PRN (08:14)
[2019-12-23] MEDS: ACETAMINOPHEN 325 MG TABLET PO PRN ×2 (08:41→17:51)
[2019-12-23] MEDS: INSULIN LISPRO 100 UNIT/ML 3 ML VIAL SUBCUT SCH ×4 (08:44→22:12)
[2019-12-23] MEDS: DOCUSATE SODIUM 100 MG CAPSULE PO SCH ×2 (09:13→19:05)
[2019-12-23] MEDS: LOSARTAN POTASSIUM 25 MG TABLET PO SCH (09:13)
[2019-12-23] MEDS: APIXABAN 5 MG TABLET PO SCH ×2 (09:15→22:10)
[2019-12-23] MEDS: PANTOPRAZOLE SODIUM 40 MG VIAL IV SCH ×2 (09:16→22:09)
[2019-12-23] MEDS: CEFEPIME 1 GM/D5W RTU 1 GM/50 ML RTUPB IV SCH ×2 (09:21→22:10)
--- NOTE | 2019-12-23 09:46 | XCELERA REPORT ---
[address] [address] Transthoracic Echocardiogram Report Name: MICHAELA ALY Age: 54 yrs Gender: Female : 1965 Patient Status: Inpatient Patient Location: [address] [place], [place] [address]A Study Date: 12/22/2019 06:53 PM Height: 64 in Weight: 293 lb BSA: 2.3 m2 Procedure: A complete two-dimensional transthoracic echocardiogram was performed (2D, M-mode, spectral and color flow Doppler). The study was technically adequate with some images being suboptimal in quality. Reason For Study: A fib, CHF Ordering Physician: KEENAN VERMA Performed By: Corinna Orourke Interpretation Summary Left ventricular systolic function is low normal. The left ventricle is grossly normal size. There is mild concentric left ventricular hypertrophy. Doppler measurements suggest pseudonormalized left ventricular relaxation, which is associated with grade II/IV or mild to moderate diastolic dysfunction Wall motion cannot be accurately commented on, but no definite regional wall motion abnormalities noted. Borderline right ventricular enlargement. The right ventricular systolic function is normal. Borderline left atrial enlargement. Borderline right atrial enlargement. There is a trace amount of mitral regurgitation There is no mitral valve stenosis. No aortic regurgitation is present. There is no aortic valve stenosis There is a trace to mild amount of tricuspid regurgitation There is mild pulmonary hypertension by echo Right ventricular systolic pressure is estimated to be elevated at 30-40mmHg. The aortic root is not well visualized but is probably normal size. The inferior vena cava was not well visualized Minimal pericardial effusion. MMode/2D Measurements & Calculations RVDd: 1.9 cm LVIDd: 4.3 cm FS: 26.9 % Ao root diam: 2.8 cm IVSd: 1.1 cm LVIDs: 3.1 cm EDV(Teich): 82.8 ml Ao root area: 6.1 cm2 LVPWd: 1.1 cm ESV(Teich): 39.0 ml LA dimension: 2.4 cm EF(Teich): 52.9 % Doppler Measurements & Calculations MV E max madeline: MV P1/2t max madeline: Ao V2 max: LV V1 max P.3 cm/sec 103.8 cm/sec 142.5 cm/sec 6.5 mmHg MV A max madeline: MV P1/2t: 48.5 msec Ao max P.1 mmHgLV V1 max: 71.1 cm/sec MVA(P1/2t): 4.5 cm2 127.8 cm/sec MV E/A: 1.3 MV dec slope: 627.5 cm/sec2 MV dec time: 0.24 sec PA V2 max: TR max madeline: MV P1/2t-pr_phl: 139.9 cm/sec 247.7 cm/sec 48.5 msec PA max PG: TR max P.5 mmHg 7.8 mmHg Left Ventricle The left ventricle is grossly normal size. There is mild concentric left ventricular hypertrophy. Left ventricular systolic function is low normal. Doppler measurements suggest pseudonormalized left ventricular relaxation, which is associated with grade II/IV or mild to moderate diastolic dysfunction. Wall motion cannot be accurately commented on, but no definite regional wall motion abnormalities noted. Right Ventricle Borderline right ventricular enlargement. There is normal right ventricular wall thickness. The right ventricular systolic function is normal. Atria Borderline right atrial enlargement. Borderline left atrial enlargement. Interarterial septum not well visualized and not well dopplered. Cannot comment on ASD/PFO presence. Mitral Valve The mitral valve leaflets are sclerotic, but show no functional abnormalities. There is no mitral valve stenosis. There is a trace amount of mitral regurgitation. Aortic Valve The aortic valve is not well visualized secondary to technical limitations. The aortic valve opens well. There is no aortic valve stenosis. No aortic regurgitation is present. Tricuspid Valve The tricuspid valve is not well visualized, but is grossly normal. There is no tricuspid stenosis. There is a trace to mild amount of tricuspid regurgitation. There is mild pulmonary hypertension by echo. Right ventricular systolic pressure is estimated to be elevated at 30-40mmHg. Pulmonic Valve The pulmonic valve is not well visualized. Great Vessels The aortic root is not well visualized but is probably normal size. The inferior vena cava was not well visualized. Effusions Minimal pericardial effusion. : KEENAN VERMA Shyamal
--- NOTE | 2019-12-23 09:54 | PDOC PROGRESS REPORT ---
Subjective Progress Note for:: 12/22/19 Subjective:: Patient has shown gradual but significant improvement. VQ scan was noted to be negative. This results was reviewed with the patient. 2D echo results pending at the time of dictation. Patient seems to be doing better with gradual improvement. Pt is denying any chest arm or neck discomfort. Patient denying any PND, orthopnea. Patient denied any sustained palpitations, dizziness, syncope, near syncope. Patient denying any fever chills. Patient denying any other significant discomfort. Patient is maintaining sinus rhythm with left bundle branch block. Review of systems: Rest review of systems negative. Medications: Medications have been reviewed. Reason For Visit: METABOLIC ACIDOSIS Physical Exam Vital Signs: Temp Pulse Resp BP Pulse Ox 98.3 F 86 18 106/54 L 99 12/22/19 16:28 12/22/19 16:28 12/22/19 16:28 12/22/19 16:28 12/22/19 16:28 Intake & Output 12/21/19 12/22/19 12/23/19 06:59 06:59 06:59 Intake Total 2150 696 5197 Output Total 50 1225 600 Balance 2100 -529 4597 Weight 133.3 kg 134.8 kg Exam: GENERAL: well-nourished and in no acute distress. Alert and oriented x3 HEAD: Atraumatic, normocephalic. EYES: RAUL, sclera anicteric, conjunctiva are normal. ENT: Moist mucous membranes. No oral ulcerations or bleeding gums noted. No obvious ear, nose or throat abnormalities noted. NECK: supple without lymphadenopathy. Trachea is central. No cervical or axillary lymphadenopathy noted. Carotids are 2+, JVD WNL LUNGS: Few bibasilar fine crackles are noted. No wheezes rales or rhonchi noted. No significant dullness noted on percussion. CHEST: Palpation of the chest wall shows no significant chest wall tenderness. 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 ABDOMEN: Soft, no significant tenderness appreciated, normoactive bowel sounds. No guarding, no rebound. No rigidity noted . No masses appreciated. EXTREMITIES: Pedal pulses are 1-2+, no calf tenderness noted. No clubbing or cyanosis. negative pedal edema noted NEUROLOGICAL: Focused neurological exam showed no significant neurologic deficit. Normal speech, no focal weakness appreciated. PSYCH: Normal mood, normal affect. Judgment and insight within normal limits. SKIN: No significant ecchymosis, skin is noted to be warm. MUSCULOSKELETAL EXAM: No significant acute joint swelling noted. Results Laboratory Results: 12/22/19 06:57 12/22/19 06:57 12/22/19 12/22/19 06:57 06:57 WBC 7.8 RBC 4.23 Hgb 13.1 Hct 36.3 MCV 86 MCH 31.0 MCHC 36.2 H RDW 14.1 H Plt Count 207 Seg Neutrophils % Not Reportable Sodium 132.4 L Potassium 3.3 L Chloride 103 Carbon Dioxide 17 L Anion Gap 12 BUN 9 Creatinine 0.70 Est GFR ( Amer) > 60 Glucose 302 H Calcium 8.5 Magnesium 1.7 Total Bilirubin 0.6 AST 23 Alkaline Phosphatase 115 Total Protein 5.4 L Albumin 2.9 L 12/20/19 12/20/19 12/21/19 18:40 18:40 00:30 Creatine Kinase 46 36 CK-MB (CK-2) Troponin I < 0.012 NT-Pro-B Natriuret Pep 12/21/19 12/21/19 12/21/19 00:30 08:06 08:06 Creatine Kinase 165 H CK-MB (CK-2) 1.81 2.56 Troponin I < 0.012 < 0.012 NT-Pro-B Natriuret Pep 12/21/19 12/21/19 12/21/19 14:50 14:50 14:50 Creatine Kinase 236 H CK-MB (CK-2) 2.86 Troponin I < 0.012 NT-Pro-B Natriuret Pep 219 H EKG Comments: Telemetry shows sinus rhythm without any sustained tachycardia or bradycardia. Impressions: Head CT 12/20/19 20:40 IMPRESSION: 1. No acute intracranial findings. If there is clinical concern for acute stroke, consider MRI brain as a more sensitive evaluation. Abdomen/Pelvis CT 12/21/19 00:00 IMPRESSION: NO SIGNIFICANT OR ACUTE FINDING IN THE ABDOMEN OR PELVIS ON CT SCAN WITH IV CONTRAST. No evidence for diverticulitis. Head MRI 12/21/19 00:00 IMPRESSION: NORMAL MRI OF THE BRAIN WITHOUT INTRAVENOUS GADOLINIUM CONTRAST. EVIDENCE OF ACUTE STROKE: NO. Chest X-Ray 12/22/19 00:00 IMPRESSION: Stable chest radiograph without evidence of acute cardiopulmonary process. Lung Scan-VQ NM 12/22/19 12:36 IMPRESSION: No mismatched perfusion defects to suggest pulmonary embolus. Negative V/Q scan for pulmonary embolus. Assessment & Plan - Diagnosis (1) Atrial fibrillation Qualifiers: Atrial fibrillation type: paroxysmal Qualified Code(s): I48.0 - Paroxysmal atrial fibrillation Is this a current diagnosis for this admission?: Yes (2) Congestive heart failure Qualifiers: Heart failure type: diastolic Heart failure chronicity: chronic Qualified Code(s): I50.32 - Chronic diastolic (congestive) heart failure Is this a current diagnosis for this admission?: Yes (3) Hyperlipidemia Qualifiers: Hyperlipidemia type: unspecified Qualified Code(s): E78.5 - Hyperlipidemia, unspecified Is this a current diagnosis for this admission?: Yes (4) Mental status alteration Qualifiers: Altered mental status type: unspecified Qualified Code(s): R41.82 - Altered mental status, unspecified Is this a current diagnosis for this admission?: Yes (5) Type 2 diabetes mellitus Qualifiers: Diabetes mellitus terminal gauger insulin use: with senior living use Diabetes mellitus complication status: with other specified complication Qualified Code(s): E11.69 - Type 2 diabetes mellitus with other specified complication; Z79.4 - snf (current) use of insulin Is this a current diagnosis for this admission?: Yes (6) Weakness Is this a current diagnosis for this admission?: Yes - Notes Notes: Mental status changes and fall: This has improved. Most likely related to metab olic reasons. Generalized weakness: Improved. Possible viral syndrome/metabolic's secondary to diabetic ketoacidosis/starvation. Urinalysis was negative for UTI. Patient does have some cough. Congestive heart failure: Diastolic currently compensated by exam. This is chronic. Continue maintenance diuretic therapy. 2D echo results are pending. Atrial fibrillation paroxysmal: Currently in sinus rhythm. Continue cardiac monitoring. Continue Eliquis therapy. 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 Patient has very low bicarb level. Bicarb level has improved. Possibly related to diabetic ketoacidosis. Possible starvation ketoacidosis. - Time Time with patient: Greater than 35 minutes - More than 50% of the time spent coordinating care, discussing management plans with involved caregivers. Management plans discussed with involved personnels. Medical decision making was of moderate to high complexity, patient's has multiple comorbidities. Medications reviewed and adjusted accordingly: Yes
--- NOTE | 2019-12-23 10:15 | PDOC PROGRESS REPORT ---
Subjective Progress Note for:: 12/23/19 Subjective:: Patient is currently doing fair He complains of abdominal discomfort but other than that was some mild headache no other symptoms This with the Dr. Cyr patient have a endoscopy colonoscopy everything done within the last year has some capsule endoscopy was done couple of months back and he will suggest he will do the endoscopy as outpatients once the patient's was discharged Patient CT scan of the abdomen pelvis head MRI VQ scan all negatives seen by the cardiology Patient is acidosis is currently all resolved adjust the insulin today Reason For Visit: METABOLIC ACIDOSIS Physical Exam Vital Signs: Temp Pulse Resp BP Pulse Ox 98.3 F 79 16 134/69 H 99 12/23/19 08:00 12/23/19 08:00 12/23/19 08:00 12/23/19 08:00 12/23/19 08:00 Intake & Output 12/22/19 12/23/19 12/24/19 06:59 06:59 06:59 Intake Total 696 6700 Output Total 1225 1200 Balance -529 5500 Weight 134.8 kg 142.1 kg General appearance: PRESENT: no acute distress, well-developed, well-nourished Head exam: PRESENT: atraumatic, normocephalic Eye exam: PRESENT: conjunctiva pink, EOMI, PERRLA. ABSENT: scleral icterus Ear exam: PRESENT: normal external ear exam Mouth exam: PRESENT: moist, tongue midline Neck exam: PRESENT: full ROM. ABSENT: carotid bruit, JVD, lymphadenopathy, thyromegaly Respiratory exam: PRESENT: clear to auscultation unique Cardiovascular exam: PRESENT: RRR. ABSENT: diastolic murmur, rubs, systolic murmur Pulses: PRESENT: normal dorsalis pedis pul, +2 pedal pulses bilateral Vascular exam: PRESENT: normal capillary refill GI/Abdominal exam: PRESENT: normal bowel sounds, soft. ABSENT: distended, guarding, mass, organolmegaly, rebound, tenderness Rectal exam: PRESENT: deferred Musculoskeletal exam: PRESENT: ambulatory Neurological exam: PRESENT: alert, awake, oriented to person, oriented to place, oriented to time, oriented to situation, CN II-XII grossly intact. ABSENT: motor sensory deficit Psychiatric exam: PRESENT: appropriate affect, normal mood. ABSENT: homicidal ideation, suicidal ideation Skin exam: PRESENT: dry, intact, warm. ABSENT: cyanosis, rash Results Laboratory Results: 12/23/19 06:16 12/23/19 06:16 12/23/19 12/23/19 06:16 06:16 WBC 7.1 RBC 4.34 Hgb 13.2 Hct 37.0 MCV 85 MCH 30.4 MCHC 35.6 RDW 13.8 Plt Count 212 Seg Neutrophils % 70.2 Sodium 132.9 L Potassium 3.1 L Chloride 101 Carbon Dioxide 21 L Anion Gap 11 BUN 12 Creatinine 0.94 Est GFR ( Amer) > 60 Glucose 320 H Calcium 8.5 12/20/19 12/20/19 12/21/19 18:40 18:40 00:30 Creatine Kinase 46 36 CK-MB (CK-2) Troponin I < 0.012 NT-Pro-B Natriuret Pep 12/21/19 12/21/19 12/21/19 00:30 08:06 08:06 Creatine Kinase 165 H CK-MB (CK-2) 1.81 2.56 Troponin I < 0.012 < 0.012 NT-Pro-B Natriuret Pep 12/21/19 12/21/19 12/21/19 14:50 14:50 14:50 Creatine Kinase 236 H CK-MB (CK-2) 2.86 Troponin I < 0.012 NT-Pro-B Natriuret Pep 219 H Impressions: Head CT 12/20/19 20:40 IMPRESSION: 1. No acute intracranial findings. If there is clinical concern for acute stroke, consider MRI brain as a more sensitive evaluation. Abdomen/Pelvis CT 12/21/19 00:00 IMPRESSION: NO SIGNIFICANT OR ACUTE FINDING IN THE ABDOMEN OR PELVIS ON CT SCAN WITH IV CONTRAST. No evidence for diverticulitis. Head MRI 12/21/19 00:00 IMPRESSION: NORMAL MRI OF THE BRAIN WITHOUT INTRAVENOUS GADOLINIUM CONTRAST. EVIDENCE OF ACUTE STROKE: NO. Chest X-Ray 12/22/19 00:00 IMPRESSION: Stable chest radiograph without evidence of acute cardiopulmonary process. Lung Scan-VQ NM 12/22/19 12:36 IMPRESSION: No mismatched perfusion defects to suggest pulmonary embolus. Negative V/Q scan for pulmonary embolus. 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 insulin use: with long-term use Diabetes mellitus complication status: with other specified complication Qualified Code(s): E11.69 - Type 2 diabetes mellitus with other specified complication; Z79.4 - rn long term care (current) use of insulin Is this a current diagnosis for this admission?: Yes Plan: Adjust the Lantus dose today patient have a diabetic education was given yesterday (4) Hypertension Qualifiers: Hypertension type: essential hypertension Qualified Code(s): I10 - Essential (primary) hypertension Is this a current diagnosis for this admission?: Yes Plan: Use the current medications (5) Hyperlipidemia Qualifiers: Hyperlipidemia type: unspecified Qualified Code(s): E78.5 - Hyperlipidemia, unspecified Is this a current diagnosis for this admission?: Yes (6) Atrial fibrillation Qualifiers: Atrial fibrillation type: paroxysmal Qualified Code(s): I48.0 - Paroxysmal atrial fibrillation Is this a current diagnosis for this admission?: Yes Plan: Currently on [facility] follow-up with Dr. Alexandre (7) Congestive heart failure Qualifiers: Heart failure type: diastolic Heart failure chronicity: chronic Qualified Code(s): I50.32 - Chronic diastolic (congestive) heart failure Is this a current diagnosis for this admission?: Yes Plan: Patient have echocardiogram done by Dr. Alexandre currently all stable (8) Metabolic acidosis Is this a current diagnosis for this admission?: Yes Plan: Most likely due to the diabetes currently all resolved (9) Unable to ambulate Is this a current diagnosis for this admission?: Yes Plan: Currently getting better with physical therapy (10) Weakness Is this a current diagnosis for this admission?: Yes (11) Diabetic ketoacidosis Qualifiers: Diabetes mellitus type: type 2 Diabetes mellitus complication detail: without coma Qualified Code(s): E11.10 - Type 2 diabetes mellitus with ketoacidosis without coma Is this a current diagnosis for this admission?: Yes Plan: Currently anion gap is all normal CO2 is all improving (12) Noncompliance Is this a current diagnosis for this admission?: Yes - Time Time Spent with patient: 25-34 minutes Level of Care: IMCU Medications reviewed and adjusted accordingly: Yes Anticipated discharge: Home Within: Other - Plan Summary Plan Summary: Continues the current medications
[2019-12-23] MEDS ORDERED: DIPHENHYDRAMINE HCL 50 MG/ML VIAL ONE (15:59)
[2019-12-23] MEDS ORDERED: MIDAZOLAM 2 MG/2 ML INJ ONE (15:59)
[2019-12-23] MEDS ORDERED: FENTANYL CITRATE INJ/PF 100 MCG/2 ML AMPUL ONE (15:59)
[2019-12-23] MEDS ORDERED: ONDANSETRON HCL INJ/PF 4 MG/2 ML SDV ONE (15:59)
[2019-12-23] MEDS ORDERED: EPINEPHRINE INJ 1 MG/10 ML DISP.SYRIN ONE (16:00)
[2019-12-23] MEDS ORDERED: NALOXONE HCL INJ/PF 0.4 MG/1 ML SDV ONE (16:00)
[2019-12-23] MEDS ORDERED: FLUMAZENIL INJ 0.5 MG/5 ML VIAL ONE (16:00)
[2019-12-23] MEDS ORDERED: GLUCAGON,HUMAN RECOMB 1 MG INJ ONE (16:00)
--- NOTE | 2019-12-23 18:40 | PDOC CONSULTATION ---
Consultation Consult Date: 12/22/19 Provider Consulted: MARIE OLIVEROS History of Present Illness Admission Date/PCP: 12/21/19 00:15 VERONA NARANJO MD History of Present Illness: MICHAELA ALY is a 54 year old female Who was admitted on 12/21/2019 with weakness and not able to get off the floor. She may have been on the floor for a couple of days. Consultation was requested for abdominal discomfort. According to the patient she has been having some pain off-and-on for the last 3 weeks. Her last EGD was a year ago and this was unremarkable. There is some bloating but no vomiting. On admission her AST was 38 with alkaline phosphatase of 131 but by the second day of admission her LFTs were normal. She has not had a lipase. She had a CT of the abdomen and pelvis that showed no acute findings. She has had a previous cholecystectomy and there are no dilated ducts. She had a colonoscopy and a capsule endoscopy over the last year that were unremarkable. Past Medical History Cardiac Medical History: Reports: Atrial Fibrillation, Congestive Heart Failure, Hyperlipidema, Hypertension - medicated Denies: Coronary Artery Disease, Myocardial Infarction Pulmonary Medical History: Reports: Bronchitis Denies: Asthma, Chronic Obstructive Pulmonary Disease (COPD), Pneumonia Neurological Medical History: Denies: Seizures Endocrine Medical History: Reports: Diabetes Mellitus Type 1, Diabetes Mellitus Type 2 GI Medical History: Reports: Diverticulitis, Gastroesophageal Reflux Disease, Hiatal Hernia Denies: Hepatitis Musculoskeltal Medical History: Reports: Arthritis Hematology: Denies: Anemia, Sickle Cell Disease Infectious Medical History: Denies: Methicillin-Resistant Staph Aureus, Vancomycin-Resistant Enterococci Past Surgical History Past Surgical History: Reports: Amputation - 3rd toe right foot, Section, Cholecystectomy, Orthopedic Surgery - 3rd toe on right foot amputated Denies: Hysterectomy, Mastectomy, Pacemaker Social History Lives with: Family Smoking Status: Unknown if Ever Smoked Frequency of Alcohol Use: None Hx Recreational Drug Use: No Drugs: None Hx Prescription Drug Abuse: No - Advance Directive Resuscitation Status: Full Code Family History Family History: Arthritis, CAD, CVA, DM, Hyperlipidemia, Hypertension Parental Family History Reviewed: No Children Family History Reviewed: NA Sibling(s) Family History Reviewed.: NA Medication/Allergy Home Medications: Apixaban [Eliquis 5 mg Tablet] 5 mg PO Q12 12/21/19 Atorvastatin Calcium [Lipitor 20 mg Tablet] 20 mg PO DAILY 12/21/19 Bupropion HCl [Bupropion HCl Sr] 150 mg PO Q12 12/21/19 Dexlansoprazole [Dexilant 60 mg Capsule] 60 mg PO DAILY 12/21/19 Empagliflozin [Jardiance] 10 mg PO DAILY 12/21/19 Levocetirizine Dihydrochloride [Xyzal] 5 mg PO QPM 12/21/19 Liraglutide [Victoza 2-Parag] 1.8 mg INJ DAILY 12/21/19 Losartan Potassium [Cozaar 25 mg Tablet] 12.5 mg PO DAILY 12/21/19 Metformin HCl [Metformin HCl ER] 1,000 mg PO BID 12/21/19 Promethazine HCl [Phenergan 25 mg Tablet] 12.5 mg PO Q12HP PRN 12/21/19 Torsemide [Demadex 20 mg Tablet] 20 mg PO Q2D 12/21/19 Allergies/Adverse Reactions: bismuth subsalicylate [From Pepto-Bismol] Allergy (Severe, Verified 12/12/19 16:14) VOMITING ciprofloxacin [From Cipro] Adverse Reaction (Intermediate, Verified 12/12/19 16:14) Dizziness/nasea Review of Systems All systems: reviewed and no additional remarkable complaints except as stated Physical Exam Vital Signs: Temp Pulse Resp BP Pulse Ox 98.1 F 69 14 125/68 99 12/23/19 15:56 12/23/19 18:30 12/23/19 18:30 12/23/19 18:30 12/23/19 18:30 Intake & Output 12/22/19 12/23/19 12/24/19 06:59 06:59 06:59 Intake Total 696 6700 1119 Output Total 1225 1200 Balance -529 5500 1119 Weight 134.8 kg 142.1 kg Exam: General: Patient is alert and obese HEENT: There is no pallor or jaundice. PERRLA. Oropharynx normal Respiratory: No chest deformity. No respiratory distress. Chest wall palpitation was unremarkable. Breath sounds were normal Cardiovascular: Heart sounds 1 and 2 normal with no murmurs. Abdominal: Not distended. Soft and nontender. Liver and spleen not palpable. No ascites demonstrated. Bowel sounds active. Rectal examination was deferred. Extremities: Mild edema Neurological: Alert and oriented x4. Grossly nonfocal. Normal speech Skin: No significant rash Psychological: Normal affect Results Laboratory Results: 12/23/19 06:16 12/23/19 06:16 12/23/19 12/23/19 06:16 06:16 WBC 7.1 RBC 4.34 Hgb 13.2 Hct 37.0 MCV 85 MCH 30.4 MCHC 35.6 RDW 13.8 Plt Count 212 Seg Neutrophils % 70.2 Sodium 132.9 L Potassium 3.1 L Chloride 101 Carbon Dioxide 21 L Anion Gap 11 BUN 12 Creatinine 0.94 Est GFR ( Amer) > 60 Glucose 320 H Calcium 8.5 12/20/19 12/20/19 12/21/19 18:40 18:40 00:30 Creatine Kinase 46 36 CK-MB (CK-2) Troponin I < 0.012 NT-Pro-B Natriuret Pep 12/21/19 12/21/19 12/21/19 00:30 08:06 08:06 Creatine Kinase 165 H CK-MB (CK-2) 1.81 2.56 Troponin I < 0.012 < 0.012 NT-Pro-B Natriuret Pep 12/21/19 12/21/19 12/21/19 14:50 14:50 14:50 Creatine Kinase 236 H CK-MB (CK-2) 2.86 Troponin I < 0.012 NT-Pro-B Natriuret Pep 219 H Impressions: Head CT 12/20/19 20:40 IMPRESSION: 1. No acute intracranial findings. If there is clinical concern for acute stroke, consider MRI brain as a more sensitive evaluation. Abdomen/Pelvis CT 12/21/19 00:00 IMPRESSION: NO SIGNIFICANT OR ACUTE FINDING IN THE ABDOMEN OR PELVIS ON CT SCAN WITH IV CONTRAST. No evidence for diverticulitis. Head MRI 12/21/19 00:00 IMPRESSION: NORMAL MRI OF THE BRAIN WITHOUT INTRAVENOUS GADOLINIUM CONTRAST. EVIDENCE OF ACUTE STROKE: NO. Chest X-Ray 12/22/19 00:00 IMPRESSION: Stable chest radiograph without evidence of acute cardiopulmonary process. Lung Scan-VQ NM 12/22/19 12:36 IMPRESSION: No mismatched perfusion defects to suggest pulmonary embolus. Negative V/Q scan for pulmonary embolus. Assessment & Plan - Diagnosis (1) Abdominal pain Qualifiers: Abdominal location: generalized Qualified Code(s): R10.84 - Generalized abd ominal pain Is this a current diagnosis for this admission?: Yes Plan: She has had some abdominal pain over the last few weeks but nothing acute on her blood work or CAT scan. This may be related to her diabetic complications but she will undergo an EGD for further evaluation. I will also check her lipase and amylase. We should consider gastric emptying study if she continues to have dyspepsia but this could be done as outpatient (2) Diabetic ketoacidosis Qualifiers: Diabetes mellitus type: type 2 Diabetes mellitus complication detail: without coma Qualified Code(s): E11.10 - Type 2 diabetes mellitus with ketoacidosis without coma Is this a current diagnosis for this admission?: Yes (3) Hypertension Qualifiers: Hypertension type: essential hypertension Qualified Code(s): I10 - Essential (primary) hypertension Is this a current diagnosis for this admission?: Yes
--- NOTE | 2019-12-23 18:42 | Operative Report ---
Operative Report DATE OF SURGERY: 12/23/19 Operative Report: Pre-op diagnosis: Epigastric pain Post-op diagnosis: 1. Gastric body polyp 2. Grade C esophagitis Surgery: Esophagogastroduodenoscopy with biopsy and polypectomy Medications: Versed 2mg Fentanyl 50mcg IV push Tissue removed: Antral biopsy and gastric polyp for pathology Procedure: After informed consent obtained from patient, the throat was sprayed with Hurricane and conscious sedation was achieved. The upper endoscope was inserted into the esophagus under direct vision and advanced into the stomach. The duodenum was entered and examined to the second part. Endoscope was then slowly pulled out of the patient as the mucosa was examined into details. Patient tolerated procedure well. Findings Esophagus: There were multiple erosions noted in the distal third of the esophagus 1 of which involved 2 folds. Antrum: Normal Body: A 4 mm polyp was removed with a snare Fundus: Normal Duodenum first part: Normal Duodenum second part: Normal Plan: Await pathology. Start PPI twice a day and keep head elevated at all times OPERATION: .
[2019-12-23] MEDS: CETIRIZINE 5 MG TABLET PO SCH (19:05)
--- NOTE | 2019-12-23 20:12 | PDOC PROGRESS REPORT ---
Subjective Progress Note for:: 12/23/19 Subjective:: Patient has shown gradual but significant improvement. VQ scan was noted to be negative. This results was reviewed with the patient. Patient seems to be doing better with gradual improvement. Pt is denying any chest arm or neck discomfort. Patient denying any PND, orthopnea. Patient denied any sustained palpitations, dizziness, syncope, near syncope. Patient denying any fever chills. Patient denying any other significant discomfort. Patient is maintaining sinus rhythm with left bundle branch block. Review of systems: Rest review of systems negative. Medications: Medications have been reviewed. Reason For Visit: METABOLIC ACIDOSIS Physical Exam Vital Signs: Temp Pulse Resp BP Pulse Ox 98.1 F 91 14 120/61 98 12/23/19 15:56 12/23/19 19:00 12/23/19 18:45 12/23/19 18:45 12/23/19 18:45 Intake & Output 12/22/19 12/23/19 12/24/19 06:59 06:59 06:59 Intake Total 696 6700 1119 Output Total 1225 1200 Balance -529 5500 1119 Weight 134.8 kg 142.1 kg Exam: GENERAL: well-nourished and in no acute distress. Alert and oriented x3 HEAD: Atraumatic, normocephalic. EYES: RAUL, sclera anicteric, conjunctiva are normal. ENT: Moist mucous membranes. No oral ulcerations or bleeding gums noted. No obvious ear, nose or throat abnormalities noted. NECK: supple without lymphadenopathy. Trachea is central. No cervical or axillary lymphadenopathy noted. Carotids are 2+, JVD WNL LUNGS: Breath sounds clear bilaterally. No wheezes rales or rhonchi noted. No significant dullness noted on percussion. CHEST: Palpation of the chest wall shows no significant chest wall tenderness. HEART: [place] [employer], No PSH, 1/6 TERESA aortic area, 1/6 cho systolic murmur mitral area, no rubs, no gallops. ABDOMEN: Soft, no significant tenderness appreciated, normoactive bowel sounds. No guarding, no rebound. No rigidity noted . No masses appreciated. EXTREMITIES: Pedal pulses are 1-2+, no calf tenderness noted. No clubbing or cyanosis. negative pedal edema noted NEUROLOGICAL: Focused neurological exam showed no significant neurologic deficit. Normal speech, no focal weakness appreciated. PSYCH: Normal mood, normal affect. Judgment and insight within normal limits. SKIN: No significant ecchymosis, skin is noted to be warm. MUSCULOSKELETAL EXAM: No significant acute joint swelling noted. Results Laboratory Results: 12/23/19 06:16 12/23/19 06:16 12/23/19 12/23/19 06:16 06:16 WBC 7.1 RBC 4.34 Hgb 13.2 Hct 37.0 MCV 85 MCH 30.4 MCHC 35.6 RDW 13.8 Plt Count 212 Seg Neutrophils % 70.2 Sodium 132.9 L Potassium 3.1 L Chloride 101 Carbon Dioxide 21 L Anion Gap 11 BUN 12 Creatinine 0.94 Est GFR ( Amer) > 60 Glucose 320 H Calcium 8.5 12/20/19 12/20/19 12/21/19 18:40 18:40 00:30 Creatine Kinase 46 36 CK-MB (CK-2) Troponin I < 0.012 NT-Pro-B Natriuret Pep 12/21/19 12/21/19 12/21/19 00:30 08:06 08:06 Creatine Kinase 165 H CK-MB (CK-2) 1.81 2.56 Troponin I < 0.012 < 0.012 NT-Pro-B Natriuret Pep 12/21/19 12/21/19 12/21/19 14:50 14:50 14:50 Creatine Kinase 236 H CK-MB (CK-2) 2.86 Troponin I < 0.012 NT-Pro-B Natriuret Pep 219 H EKG Comments: Telemetry shows sinus rhythm no sustained tachyarrhythmia or bradycardia arrhythmias noted. Impressions: Head CT 12/20/19 20:40 IMPRESSION: 1. No acute intracranial findings. If there is clinical concern for acute stroke, consider MRI brain as a more sensitive evaluation. Abdomen/Pelvis CT 12/21/19 00:00 IMPRESSION: NO SIGNIFICANT OR ACUTE FINDING IN THE ABDOMEN OR PELVIS ON CT SCAN WITH IV CONTRAST. No evidence for diverticulitis. Head MRI 12/21/19 00:00 IMPRESSION: NORMAL MRI OF THE BRAIN WITHOUT INTRAVENOUS GADOLINIUM CONTRAST. EVIDENCE OF ACUTE STROKE: NO. Chest X-Ray 12/22/19 00:00 IMPRESSION: Stable chest radiograph without evidence of acute cardiopulmonary process. Lung Scan-VQ NM 02/03/20 12:36 IMPRESSION: No mismatched perfusion defects to suggest pulmonary embolus. Negative V/Q scan for pulmonary embolus. Assessment & Plan - Diagnosis (1) Atrial fibrillation Qualifiers: Atrial fibrillation type: paroxysmal Qualified Code(s): I48.0 - Paroxysmal atrial fibrillation Is this a current diagnosis for this admission?: Yes (2) Congestive heart failure Qualifiers: Heart failure type: diastolic Heart failure chronicity: chronic Qualified Code(s): I50.32 - Chronic diastolic (congestive) heart failure Is this a current diagnosis for this admission?: Yes (3) Hyperlipidemia Qualifiers: Hyperlipidemia type: unspecified Qualified Code(s): E78.5 - Hyperlipidemia, unspecified Is this a current diagnosis for this admission?: Yes (4) Mental status alteration Qualifiers: Altered mental status type: unspecified Qualified Code(s): R41.82 - Altered mental status, unspecified Is this a current diagnosis for this admission?: Yes (5) Type 2 diabetes mellitus Qualifiers: Diabetes mellitus half-way insulin use: with intermission coordinator use Diabetes mellitus complication status: with other specified complication Qualified Code(s): E11.69 - Type 2 diabetes mellitus with other specified complication; Z79.4 - prison (current) use of insulin Is this a current diagnosis for this admission?: Yes (6) Weakness Is this a current diagnosis for this admission?: Yes - Notes Notes: Mental status changes and fall: This has improved. Most likely related to metabolic reasons. Generalized weakness: Improved. Possible viral syndrome/metabolic's secondary to diabetic ketoacidosis/starvation. Urinalysis was negative for UTI. Patient does have some cough. Congestive heart failure: Diastolic currently compensated by exam. This is chronic. Continue maintenance diuretic therapy. 2D echo results showing grade 2 diastolic dysfunction. RV is borderline enlarged. Atrial fibrillation paroxysmal: Currently in sinus rhythm. Continue cardiac monitoring. Continue Eliquis therapy. 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 Results of endoscopy reviewed. Patient noted to have esophageal ulcers. Underlying sleep apnea syndrome: Patient advised to bring her CPAP machine and use CPAP at night. Proper treatment of sleep apnea may prevent esophageal reflux and ulcerations as well as improve diastolic function.. Patient has very low bicarb level. Bicarb level has improved. Possibly related to diabetic ketoacidosis. Possible starvation ketoacidosis. - Time Time with patient: 15-25 minutes - More than 50% of the time spent coordinating care, discussing management plans with involved caregivers. Management plans discussed with involved personnels. Medical decision making was of moderate to high complexity, patient's has multiple comorbidities. Medications reviewed and adjusted accordingly: Yes
[2019-12-23] MEDS ORDERED: INSULIN GLARGINE,HUM.REC.ANLOG 1,000 UNIT/10 ML VIAL SUBCUT SCH (22:00)
[2019-12-23] MEDS: SUCRALFATE 1 GM TABLET PO SCH (22:10)
[2019-12-23] MEDS: ATORVASTATIN CALCIUM 20 MG TABLET PO SCH (22:13)
[2019-12-24 05:45] LABS: ABSOLUTE BASOPHILS # (AUTO) 0.1 10^3/uL (0.0-0.2); ABSOLUTE EOSINOPHILS # (AUTO) 0.2 10^3/uL (0.0-0.6); ABSOLUTE LYMPHOCYTES (AUTO) 1.9 10^3/uL (0.5-4.7); ABSOLUTE MONOCYTES (AUTO) 0.8 10^3/uL (0.1-1.4); ABSOLUTE NEUT (AUTO) 4.2 10^3/uL (1.7-8.2); BASOPHILS % (AUTO) 0.8 % (0-2); EOSINOPHILS % (AUTO) 2.7 % (0-6); HEMATOCRIT 37.9 % (36.0-47.0); HEMOGLOBIN 13.7 g/dL (12.0-15.5); LYMPHOCYTES % (AUTO) 27.2 % (13-45); MEAN CORPUSCULAR HEMOGLOBIN 30.9 pg (27.0-33.4); MEAN CORPUSCULAR HGB CONC 36.1 g/dL (32.0-36.0); MEAN CORPUSCULAR VOLUME 86 fl (80-97); MONOCYTES % (AUTO) 10.8 % (3-13); PLATELET COUNT 240 10^3/uL (150-450); RED BLOOD COUNT 4.43 10^6/uL (3.72-5.28); RED CELL DISTRIBUTION WIDTH 14.2 % (11.5-14.0); SEGMENTED NEUTROPHILS % (AUTO) 58.5 % (42-78); TOTAL CELLS COUNTED % (AUTO) 100 %; WHITE BLOOD COUNT 7.1 10^3/uL (4.0-10.5)
[2019-12-24] MEDS: BUPROPION HCL 100 MG TABLET PO SCH ×3 (05:52→22:02)
[2019-12-24 06:06] LABS: ANION GAP 10 (5-19); BLOOD UREA NITROGEN 12 mg/dL (7-20); CALCIUM 8.9 mg/dL (8.4-10.2); CARBON DIOXIDE 21 mmol/L (22-30); CHLORIDE 103 mmol/L (98-107); GLUCOSE 332 mg/dL (75-110); POTASSIUM 3.6 mmol/L (3.6-5.0)
[2019-12-24] MEDS: INSULIN LISPRO 100 UNIT/ML 3 ML VIAL SUBCUT SCH ×4 (08:39→22:02)
[2019-12-24] MEDS ORDERED: INSULIN GLARGINE,HUM.REC.ANLOG 1,000 UNIT/10 ML VIAL (PYX) SUBCUT ONE (08:45)
[2019-12-24] MEDS: CEFEPIME 1 GM/D5W RTU 1 GM/50 ML RTUPB IV SCH ×2 (09:52→22:02)
[2019-12-24] MEDS: METFORMIN HCL 500 MG TABLET PO SCH ×2 (09:53→17:33)
[2019-12-24] MEDS: SUCRALFATE 1 GM TABLET PO SCH ×4 (09:54→22:02)
[2019-12-24] MEDS: APIXABAN 5 MG TABLET PO SCH ×2 (09:54→22:02)
[2019-12-24] MEDS: LOSARTAN POTASSIUM 25 MG TABLET PO SCH (09:54)
[2019-12-24] MEDS: PANTOPRAZOLE SODIUM 40 MG VIAL IV SCH ×2 (09:56→22:02)
--- NOTE | 2019-12-24 11:57 | PDOC PROGRESS REPORT ---
Subjective Progress Note for:: 12/24/19 Subjective:: Patient is currently doing fairPatient underwentStart on PPI twice a day and sucralfate for the endoscopy by Dr. Cyr Is complaining of her left eye irritations No chest pain no short of breath His blood sugar is still elevated Reason For Visit: METABOLIC ACIDOSIS Physical Exam Vital Signs: Temp Pulse Resp BP Pulse Ox 97.6 F 77 15 126/60 H 98 12/24/19 07:38 12/24/19 07:38 12/24/19 07:38 12/24/19 07:38 12/24/19 07:38 Intake & Output 12/23/19 12/24/19 12/25/19 06:59 06:59 06:59 Intake Total 6700 1419 Output Total 1200 1500 Balance 5500 -81 Weight 142.1 kg 141.4 kg General appearance: PRESENT: no acute distress, well-developed, well-nourished Head exam: PRESENT: atraumatic, normocephalic Eye exam: PRESENT: conjunctiva pink, EOMI, PERRLA. ABSENT: scleral icterus Additional comments: Left rconjunctive is pink Ear exam: PRESENT: normal external ear exam Mouth exam: PRESENT: moist, tongue midline Neck exam: PRESENT: full ROM. ABSENT: carotid bruit, JVD, lymphadenopathy, thyromegaly Respiratory exam: PRESENT: clear to auscultation unique Cardiovascular exam: PRESENT: RRR. ABSENT: diastolic murmur, rubs, systolic murmur Pulses: PRESENT: normal dorsalis pedis pul, +2 pedal pulses bilateral Vascular exam: PRESENT: normal capillary refill GI/Abdominal exam: PRESENT: normal bowel sounds, soft. ABSENT: distended, gu arding, mass, organolmegaly, rebound, tenderness Rectal exam: PRESENT: deferred Neurological exam: PRESENT: alert, awake, oriented to person, oriented to place, oriented to time, oriented to situation, CN II-XII grossly intact. ABSENT: motor sensory deficit Psychiatric exam: PRESENT: appropriate affect, normal mood. ABSENT: homicidal ideation, suicidal ideation Skin exam: PRESENT: dry, intact, warm. ABSENT: cyanosis, rash Results Laboratory Results: 12/24/19 05:21 12/24/19 05:21 12/24/19 12/24/19 05:21 05:21 WBC 7.1 RBC 4.43 Hgb 13.7 Hct 37.9 MCV 86 MCH 30.9 MCHC 36.1 H RDW 14.2 H Plt Count 240 Seg Neutrophils % 58.5 Sodium 134.0 L Potassium 3.6 Chloride 103 Carbon Dioxide 21 L Anion Gap 10 BUN 12 Creatinine 0.65 Est GFR ( Amer) > 60 Glucose 332 H Calcium 8.9 12/20/19 12/20/19 12/21/19 18:40 18:40 00:30 Creatine Kinase 46 36 CK-MB (CK-2) Troponin I < 0.012 NT-Pro-B Natriuret Pep 12/21/19 12/21/19 12/21/19 00:30 08:06 08:06 Creatine Kinase 165 H CK-MB (CK-2) 1.81 2.56 Troponin I < 0.012 < 0.012 NT-Pro-B Natriuret Pep 12/21/19 12/21/19 12/21/19 14:50 14:50 14:50 Creatine Kinase 236 H CK-MB (CK-2) 2.86 Troponin I < 0.012 NT-Pro-B Natriuret Pep 219 H Impressions: Head CT 12/20/19 20:40 IMPRESSION: 1. No acute intracranial findings. If there is clinical concern for acute stroke, consider MRI brain as a more sensitive evaluation. Abdomen/Pelvis CT 12/21/19 00:00 IMPRESSION: NO SIGNIFICANT OR ACUTE FINDING IN THE ABDOMEN OR PELVIS ON CT SCAN WITH IV CONTRAST. No evidence for diverticulitis. Head MRI 12/21/19 00:00 IMPRESSION: NORMAL MRI OF THE BRAIN WITHOUT INTRAVENOUS GADOLINIUM CONTRAST. EVIDENCE OF ACUTE STROKE: NO. Chest X-Ray 12/22/19 00:00 IMPRESSION: Stable chest radiograph without evidence of acute cardiopulmonary process. Lung Scan-VQ NM 12/22/19 12:36 IMPRESSION: No mismatched perfusion defects to suggest pulmonary embolus. Negative V/Q scan for pulmonary embolus. Assessment & Plan - Diagnosis (1) Mental status alteration Qualifiers: Altered mental status type: unspecified Qualified Code(s): R41.82 - Altered mental status, unspecified Is this a current diagnosis for this admission?: Yes Plan: Currently all resolved (2) Abdominal pain Qualifiers: Abdominal location: generalized Qualified Code(s): R10.84 - Generalized abdominal pain Is this a current diagnosis for this admission?: Yes Plan: Currently all stable (3) Type 2 diabetes mellitus Qualifiers: Diabetes mellitus emt intermediate insulin use: with longterm use Diabetes mellitus complication status: with other specified complication Qualified Code(s): E11.69 - Type 2 diabetes mellitus with other specified complication; Z79.4 - half-way (current) use of insulin Is this a current diagnosis for this admission?: Yes Plan: Increase the Lantus 20 units at nights and 15 units in the morningRestart the metformin watch for any acidosis (4) Hypertension Qualifiers: Hypertension type: essential hypertension Qualified Code(s): I10 - Essential (primary) hypertension Is this a current diagnosis for this admission?: Yes Plan: Currently all stable (5) Hyperlipidemia Qualifiers: Hyperlipidemia type: unspecified Qualified Code(s): E78.5 - Hyperlipidemia, unspecified Is this a current diagnosis for this admission?: Yes (6) Atrial fibrillation Qualifiers: Atrial fibrillation type: paroxysmal Qualified Code(s): I48.0 - Paroxysmal atrial fibrillation Is this a current diagnosis for this admission?: Yes Plan: Continues the Eliquis (7) Congestive heart failure Qualifiers: Heart failure type: diastolic Heart failure chronicity: chronic Qualified Code(s): I50.32 - Chronic diastolic (congestive) heart failure Is this a current diagnosis for this admission?: Yes Plan: Currently all stable (8) Metabolic acidosis Is this a current diagnosis for this admission?: Yes Plan: Currently all resolved (9) Unable to ambulate Is this a current diagnosis for this admission?: Yes (10) Weakness Is this a current diagnosis for this admission?: Yes (11) Diabetic ketoacidosis Qualifiers: Diabetes mellitus type: type 2 Diabetes mellitus complication detail: without coma Qualified Code(s): E11.10 - Type 2 diabetes mellitus with ketoacidosis without coma Is this a current diagnosis for this admission?: Yes Plan: Currently all resolved (12) Noncompliance Is this a current diagnosis for this admission?: Yes - Time Time Spent with patient: 15-24 minutes Level of Care: IMCU Medications reviewed and adjusted accordingly: Yes Anticipated discharge: Home with Homehealth Within: Other - Plan Summary Plan Summary: Restart the metformin Adjust the insulins as per calculated with a sliding scale andAdjust the long and short acting insulins
[2019-12-24] MEDS: FLUCONAZOLE 100 MG TABLET PO SCH (12:27)
[2019-12-24] MEDS: TOBRAMYCIN SULFATE/DEXAMETH OPH SUSP 2.5 ML OU SCH ×3 (12:28→23:07)
[2019-12-24] MEDS: DOCUSATE SODIUM 100 MG CAPSULE PO SCH ×2 (12:28→17:33)
[2019-12-24] MEDS: CETIRIZINE 5 MG TABLET PO SCH (17:33)
[2019-12-24] MEDS ORDERED: INSULIN GLARGINE,HUM.REC.ANLOG 1,000 UNIT/10 ML VIAL SUBCUT SCH (22:00)
[2019-12-24] MEDS: ATORVASTATIN CALCIUM 20 MG TABLET PO SCH (22:02)
[2019-12-25 04:56] LABS: ABSOLUTE EOSINOPHILS # (AUTO) 0.2 10^3/uL (0.0-0.6); ABSOLUTE LYMPHOCYTES (AUTO) 2.3 10^3/uL (0.5-4.7); ABSOLUTE MONOCYTES (AUTO) 0.8 10^3/uL (0.1-1.4); ABSOLUTE NEUT (AUTO) 4.6 10^3/uL (1.7-8.2); BASOPHILS % (AUTO) 0.5 % (0-2); EOSINOPHILS % (AUTO) 2.4 % (0-6); HEMATOCRIT 42.3 % (36.0-47.0); HEMOGLOBIN 14.9 g/dL (12.0-15.5); LYMPHOCYTES % (AUTO) 28.9 % (13-45); MEAN CORPUSCULAR HEMOGLOBIN 30.5 pg (27.0-33.4); MEAN CORPUSCULAR HGB CONC 35.2 g/dL (32.0-36.0); MEAN CORPUSCULAR VOLUME 87 fl (80-97); MONOCYTES % (AUTO) 9.7 % (3-13); PLATELET COUNT 282 10^3/uL (150-450); RED CELL DISTRIBUTION WIDTH 14.4 % (11.5-14.0); SEGMENTED NEUTROPHILS % (AUTO) 58.5 % (42-78); TOTAL CELLS COUNTED % (AUTO) 100 %; WHITE BLOOD COUNT 7.9 10^3/uL (4.0-10.5)
[2019-12-25 05:13] LABS: ANION GAP 7 (5-19); BLOOD UREA NITROGEN 9 mg/dL (7-20); CALCIUM 8.8 mg/dL (8.4-10.2); CARBON DIOXIDE 26 mmol/L (22-30); CHLORIDE 105 mmol/L (98-107); GLUCOSE 183 mg/dL (75-110); POTASSIUM 3.5 mmol/L (3.6-5.0)
[2019-12-25] MEDS: TOBRAMYCIN SULFATE/DEXAMETH OPH SUSP 2.5 ML OU SCH ×3 (05:49→17:38)
[2019-12-25] MEDS: BUPROPION HCL 100 MG TABLET PO SCH ×3 (05:49→22:04)
[2019-12-25] MEDS: INSULIN LISPRO 100 UNIT/ML 3 ML VIAL SUBCUT SCH ×4 (08:25→22:05)
[2019-12-25] MEDS: SUCRALFATE 1 GM TABLET PO SCH ×4 (08:25→22:04)
[2019-12-25] MEDS: INSULIN GLARGINE,HUM.REC.ANLOG 1,000 UNIT/10 ML VIAL SUBCUT SCH (08:27)
[2019-12-25] MEDS ORDERED: POTASSIUM CHLORIDE 20 MEQ PACKET PO ONE (10:00)
--- NOTE | 2019-12-25 10:07 | PDOC PROGRESS REPORT ---
Subjective Progress Note for:: 12/24/19 Subjective:: Patient has shown gradual but significant improvement. VQ scan was noted to be negative. This results was reviewed with the patient. Patient seems to be doing better with gradual improvement. Pt is denying any chest arm or neck discomfort. Patient denying any PND, orthopnea. Patient denied any sustained palpitations, dizziness, syncope, near syncope. Patient denying any fever chills. Patient denying any other significant discomfort. Patient is maintaining sinus rhythm with left bundle branch block. Review of systems: Rest review of systems negative. Medications: Medications have been reviewed. 12/24/2019: Patient is getting gradually better. Her metabolic problems have improved. Patient had GI evaluation. Reason For Visit: METABOLIC ACIDOSIS Physical Exam Vital Signs: Temp Pulse Resp BP Pulse Ox 98.3 F 72 16 104/45 L 97 12/24/19 19:40 12/24/19 19:40 12/24/19 19:40 12/24/19 19:40 12/24/19 19:40 Intake & Output 12/23/19 12/24/19 12/25/19 06:59 06:59 06:59 Intake Total 6700 1419 1010 Output Total 1200 1500 100 Balance 5500 -81 910 Weight 142.1 kg 141.4 kg Exam: GENERAL: well-nourished and in no acute distress. Alert and oriented x3 HEAD: Atraumatic, normocephalic. EYES: RAUL, sclera anicteric, conjunctiva are normal. ENT: Moist mucous membranes. No oral ulcerations or bleeding gums noted. No obvious ear, nose or throat abnormalities noted. NECK: supple without lymphadenopathy. Trachea is central. No cervical or axillary lymphadenopathy noted. Carotids are 2+, JVD WNL LUNGS: Breath sounds clear bilaterally. No wheezes rales or rhonchi noted. No significant dullness noted on percussion. CHEST: Palpation of the chest wall shows no significant chest wall tenderness. 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 ABDOMEN: Soft, no significant tenderness appreciated, normoactive bowel sounds. No guarding, no rebound. No rigidity noted . No masses appreciated. EXTREMITIES: Pedal pulses are 1-2+, no calf tenderness noted. No clubbing or cyanosis. negative pedal edema noted NEUROLOGICAL: Focused neurological exam showed no significant neurologic deficit. Normal speech, no focal weakness appreciated. PSYCH: Normal mood, normal affect. Judgment and insight within normal limits. SKIN: No significant ecchymosis, skin is noted to be warm. MUSCULOSKELETAL EXAM: No significant acute joint swelling noted. Results Laboratory Results: 12/24/19 05:21 12/24/19 05:21 12/24/19 12/24/19 05:21 05:21 WBC 7.1 RBC 4.43 Hgb 13.7 Hct 37.9 MCV 86 MCH 30.9 MCHC 36.1 H RDW 14.2 H Plt Count 240 Seg Neutrophils % 58.5 Sodium 134.0 L Potassium 3.6 Chloride 103 Carbon Dioxide 21 L Anion Gap 10 BUN 12 Creatinine 0.65 Est GFR ( Amer) > 60 Glucose 332 H Calcium 8.9 12/20/19 19:27 Catheterized Urine Urine Culture - Final Lactobacillus (Vaginal Jackie) 12/20/19 12/20/19 12/21/19 18:40 18:40 00:30 Creatine Kinase 46 36 CK-MB (CK-2) Troponin I < 0.012 NT-Pro-B Natriuret Pep 12/21/19 12/21/19 12/21/19 00:30 08:06 08:06 Creatine Kinase 165 H CK-MB (CK-2) 1.81 2.56 Troponin I < 0.012 < 0.012 NT-Pro-B Natriuret Pep 12/21/19 12/21/19 12/21/19 14:50 14:50 14:50 Creatine Kinase 236 H CK-MB (CK-2) 2.86 Troponin I < 0.012 NT-Pro-B Natriuret Pep 219 H Impressions: Head CT 12/20/19 20:40 IMPRESSION: 1. No acute intracranial findings. If there is clinical concern for acute stroke, consider MRI brain as a more sensitive evaluation. Abdomen/Pelvis CT 12/21/19 00:00 IMPRESSION: NO SIGNIFICANT OR ACUTE FINDING IN THE ABDOMEN OR PELVIS ON CT SCAN WITH IV CONTRAST. No evidence for diverticulitis. Head MRI 12/21/19 00:00 IMPRESSION: NORMAL MRI OF THE BRAIN WITHOUT INTRAVENOUS GADOLINIUM CONTRAST. EVIDENCE OF ACUTE STROKE: NO. Chest X-Ray 12/22/19 00:00 IMPRESSION: Stable chest radiograph without evidence of acute cardiopulmonary process. Lung Scan-VQ NM 12/22/19 12:36 IMPRESSION: No mismatched perfusion defects to suggest pulmonary embolus. Negative V/Q scan for pulmonary embolus. Assessment & Plan - Diagnosis (1) Atrial fibrillation Qualifiers: Atrial fibrillation type: paroxysmal Qualified Code(s): I48.0 - Paroxysmal atrial fibrillation Is this a current diagnosis for this admission?: Yes (2) Congestive heart failure Qualifiers: Heart failure type: diastolic Heart failure chronicity: chronic Qualified Code(s): I50.32 - Chronic diastolic (congestive) heart failure Is this a current diagnosis for this admission?: Yes (3) Hyperlipidemia Qualifiers: Hyperlipidemia type: unspecified Qualified Code(s): E78.5 - Hyperlipidemia, unspecified Is this a current diagnosis for this admission?: Yes (4) Mental status alteration Qualifiers: Altered mental status type: unspecified Qualified Code(s): R41.82 - Altered mental status, unspecified Is this a current diagnosis for this admission?: Yes (5) Type 2 diabetes mellitus Qualifiers: Diabetes mellitus snf insulin use: with snf use Diabetes mellitus complication status: with other specified complication Qualified Code(s): E11.69 - Type 2 diabetes mellitus with other specified complication; Z79.4 - halfway (current) use of insulin Is this a current diagnosis for this admission?: Yes (6) Weakness Is this a current diagnosis for this admission?: Yes - Notes Notes: Atrial fibrillation: Paroxysmal. Patient maintaining sinus rhythm this admission. Patient has left bundle branch block. Continue current therapy in cluding anticoagulation. CHF: Patient is clinically compensated. Dyslipidemia: Continue with antilipid therapy. Mental status alteration: Patient currently alert oriented x3 and improved. Type 2 diabetes: Well managed by PMD. Ketoacidosis resolved. Weakness: Improved. - Time Time with patient: 15-25 minutes - More than 50% of the time spent coordinating care, discussing management plans with involved caregivers. Management plans discussed with involved personnels. Medical decision making was of moderate to high complexity, patient's has multiple comorbidities. Medications reviewed and adjusted accordingly: Yes
--- NOTE | 2019-12-25 10:10 | PDOC PROGRESS REPORT ---
Subjective Progress Note for:: 12/25/19 Subjective:: Patient has shown gradual but significant improvement. VQ scan was noted to be negative. This results was reviewed with the patient. Patient seems to be doing better with gradual improvement. Pt is denying any chest arm or neck discomfort. Patient denying any PND, orthopnea. Patient denied any sustained palpitations, dizziness, syncope, near syncope. Patient denying any fever chills. Patient denying any other significant discomfort. Patient is maintaining sinus rhythm with left bundle branch block. Review of systems: Rest review of systems negative. Medications: Medications have been reviewed. 12/24/2019: Patient is getting gradually better. Her metabolic problems have improved. Patient had GI evaluation. 12/25/2019: Patient claims she is good enough to be discharged tomorrow. She has ambulated without any difficulty. Patient has no new complaints. Reason For Visit: METABOLIC ACIDOSIS Physical Exam Vital Signs: Temp Pulse Resp BP Pulse Ox 97.8 F 66 16 109/56 L 97 12/25/19 03:32 12/25/19 07:00 12/25/19 03:32 12/25/19 03:32 12/25/19 03:32 Intake & Output 12/24/19 12/25/19 12/26/19 06:59 06:59 06:59 Intake Total 1419 1282 Output Total 1500 1150 Balance -81 132 Weight 141.4 kg 143.7 kg Exam: GENERAL: well-nourished and in no acute distress. Alert and oriented x3 HEAD: Atraumatic, normocephalic. EYES: RAUL, sclera anicteric, conjunctiva are normal. ENT: Moist mucous membranes. No oral ulcerations or bleeding gums noted. No obvious ear, nose or throat abnormalities noted. NECK: supple without lymphadenopathy. Trachea is central. No cervical or axillary lymphadenopathy noted. Carotids are 2+, JVD WNL LUNGS: Breath sounds clear bilaterally. No wheezes rales or rhonchi noted. No significant dullness noted on percussion. CHEST: Palpation of the chest wall shows no significant chest wall tenderness. 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 ABDOMEN: Soft, no significant tenderness appreciated, normoactive bowel sounds. No guarding, no rebound. No rigidity noted . No masses appreciated. EXTREMITIES: Pedal pulses are 1-2+, no calf tenderness noted. No clubbing or cyanosis. negative pedal edema noted NEUROLOGICAL: Focused neurological exam showed no significant neurologic deficit. Normal speech, no focal weakness appreciated. PSYCH: Normal mood, normal affect. Judgment and insight within normal limits. SKIN: No significant ecchymosis, skin is noted to be warm. MUSCULOSKELETAL EXAM: No significant acute joint swelling noted. Results Laboratory Results: 12/25/19 04:28 12/25/19 04:28 12/25/19 12/25/19 04:28 04:28 WBC 7.9 RBC 4.90 Hgb 14.9 Hct 42.3 MCV 87 MCH 30.5 MCHC 35.2 RDW 14.4 H Plt Count 282 Seg Neutrophils % 58.5 Sodium 137.8 Potassium 3.5 L Chloride 105 Carbon Dioxide 26 Anion Gap 7 BUN 9 Creatinine 1.04 Est GFR ( Amer) > 60 Glucose 183 H Calcium 8.8 12/20/19 19:27 Catheterized Urine Urine Culture - Final Lactobacillus (Vaginal Jackie) 12/20/19 12/20/19 12/21/19 18:40 18:40 00:30 Creatine Kinase 46 36 CK-MB (CK-2) Troponin I < 0.012 NT-Pro-B Natriuret Pep 12/21/19 12/21/19 12/21/19 00:30 08:06 08:06 Creatine Kinase 165 H CK-MB (CK-2) 1.81 2.56 Troponin I < 0.012 < 0.012 NT-Pro-B Natriuret Pep 12/21/19 12/21/19 12/21/19 14:50 14:50 14:50 Creatine Kinase 236 H CK-MB (CK-2) 2.86 Troponin I < 0.012 NT-Pro-B Natriuret Pep 219 H EKG Comments: Sinus rhythm without any sustained tachycardia or bradycardia. Impressions: Head CT 12/20/19 20:40 IMPRESSION: 1. No acute intracranial findings. If there is clinical concern for acute stroke, consider MRI brain as a more sensitive evaluation. Abdomen/Pelvis CT 12/21/19 00:00 IMPRESSION: NO SIGNIFICANT OR ACUTE FINDING IN THE ABDOMEN OR PELVIS ON CT SCAN WITH IV CONTRAST. No evidence for diverticulitis. Head MRI 12/21/19 00:00 IMPRESSION: NORMAL MRI OF THE BRAIN WITHOUT INTRAVENOUS GADOLINIUM CONTRAST. EVIDENCE OF ACUTE STROKE: NO. Chest X-Ray 12/22/19 00:00 IMPRESSION: Stable chest radiograph without evidence of acute cardiopulmonary process. Lung Scan-VQ NM 12/22/19 12:36 IMPRESSION: No mismatched perfusion defects to suggest pulmonary embolus. Negative V/Q scan for pulmonary embolus. Assessment & Plan - Diagnosis (1) Atrial fibrillation Qualifiers: Atrial fibrillation type: paroxysmal Qualified Code(s): I48.0 - Paroxysmal atrial fibrillation Is this a current diagnosis for this admission?: Yes (2) Congestive heart failure Qualifiers: Heart failure type: diastolic Heart failure chronicity: chronic Qualified Code(s): I50.32 - Chronic diastolic (congestive) heart failure Is this a current diagnosis for this admission?: Yes (3) Hyperlipidemia Qualifiers: Hyperlipidemia type: unspecified Qualified Code(s): E78.5 - Hyperlipidemia, unspecified Is this a current diagnosis for this admission?: Yes (4) Mental status alteration Qualifiers: Altered mental status type: unspecified Qualified Code(s): R41.82 - Altered mental status, unspecified Is this a current diagnosis for this admission?: Yes (5) Type 2 diabetes mellitus Qualifiers: Diabetes mellitus halfway insulin use: with intermodal customer service use Diabetes mellitus complication status: with other specified complication Qualified Code(s): E11.69 - Type 2 diabetes mellitus with other specified complication; Z79.4 - MCC (current) use of insulin Is this a current diagnosis for this admission?: Yes (6) Weakness Is this a current diagnosis for this admission?: Yes - Notes Notes: Patient generally stable. Cardiac martinez she has been stable. Continue previous recommendations. No new recommendations. Will sign off. Patient claims that she does have a follow-up appointment with me. Will follow patient in the office. Will sign off. Please call if there are any questions. - Time Time with patient: 15-25 minutes - More than 50% of the time spent coordinating care, discussing management plans with involved caregivers. Management plans discussed with involved personnels. Medical decision making was of moderate to high complexity, patient's has multiple comorbidities. Medications reviewed and adjusted accordingly: Yes
[2019-12-25] MEDS: LOSARTAN POTASSIUM 25 MG TABLET PO SCH (10:28)
[2019-12-25] MEDS: METFORMIN HCL 500 MG TABLET PO SCH ×2 (10:29→17:38)
[2019-12-25] MEDS: FLUCONAZOLE 100 MG TABLET PO SCH (10:29)
[2019-12-25] MEDS: APIXABAN 5 MG TABLET PO SCH ×2 (10:29→22:05)
[2019-12-25] MEDS: PANTOPRAZOLE SODIUM 40 MG VIAL IV SCH ×2 (10:29→22:05)
[2019-12-25] MEDS: DOCUSATE SODIUM 100 MG CAPSULE PO SCH ×2 (10:29→17:38)
[2019-12-25] MEDS: CEFEPIME 1 GM/D5W RTU 1 GM/50 ML RTUPB IV SCH ×2 (10:31→22:06)
[2019-12-25] MEDS: CETIRIZINE 5 MG TABLET PO SCH (17:38)
[2019-12-25] MEDS ORDERED: INSULIN GLARGINE,HUM.REC.ANLOG 1,000 UNIT/10 ML VIAL SUBCUT SCH (22:00)
[2019-12-25] MEDS: ATORVASTATIN CALCIUM 20 MG TABLET PO SCH (22:05)
[2019-12-26] MEDS: TOBRAMYCIN SULFATE/DEXAMETH OPH SUSP 2.5 ML OU SCH ×2 (00:37→05:32)
[2019-12-26] MEDS: BUPROPION HCL 100 MG TABLET PO SCH (05:32)
[2019-12-26] MEDS: INSULIN GLARGINE,HUM.REC.ANLOG 1,000 UNIT/10 ML VIAL SUBCUT SCH (08:18)
[2019-12-26] MEDS: SUCRALFATE 1 GM TABLET PO SCH (08:19)
[2019-12-26] MEDS: INSULIN LISPRO 100 UNIT/ML 3 ML VIAL SUBCUT SCH (08:19)
[2019-12-26] MEDS: METFORMIN HCL 500 MG TABLET PO SCH (09:09)
[2019-12-26] MEDS: APIXABAN 5 MG TABLET PO SCH (09:09)
[2019-12-26] MEDS: DOCUSATE SODIUM 100 MG CAPSULE PO SCH (09:09)
[2019-12-26] MEDS: CEFEPIME 1 GM/D5W RTU 1 GM/50 ML RTUPB IV SCH (09:10)
[2019-12-26] MEDS: PANTOPRAZOLE SODIUM 40 MG VIAL IV SCH (09:10)
[2019-12-26] MEDS: LOSARTAN POTASSIUM 25 MG TABLET PO SCH (09:10)
[2019-12-26] MEDS: FLUCONAZOLE 100 MG TABLET PO SCH (09:11)
--- NOTE | 2019-12-26 09:46 | PDOC DISCHARGE SUMMARY ---
Impression - Admit/DC Date/PCP Admission Date/Primary Care Provider: 12/21/19 00:15 VERONA NARANJO MD Discharge Date: 12/26/19 - Discharge Diagnosis (1) Mental status alteration Is this a current diagnosis for this admission?: Yes (2) Abdominal pain Is this a current diagnosis for this admission?: Yes (3) Type 2 diabetes mellitus Is this a current diagnosis for this admission?: Yes (4) Hypertension Is this a current diagnosis for this admission?: Yes (5) Hyperlipidemia Is this a current diagnosis for this admission?: Yes (6) Atrial fibrillation Is this a current diagnosis for this admission?: Yes (7) Congestive heart failure Is this a current diagnosis for this admission?: Yes (8) Metabolic acidosis Is this a current diagnosis for this admission?: Yes (9) Unable to ambulate Is this a current diagnosis for this admission?: Yes (10) Weakness Is this a current diagnosis for this admission?: Yes (11) Diabetic ketoacidosis Is this a current diagnosis for this admission?: Yes (12) Noncompliance Is this a current diagnosis for this admission?: Yes - Additional Information Resuscitation Status: Full Code Discharge Diet: Diabetic Discharge Activity: Activity As Tolerated Referrals: VERONA NARANJO MD [Primary Care Provider] - 01/02/20 10:15 am (with Laxmi) Prescriptions: Sucralfate [Carafate 1 gm Tablet] 1 gm PO ACHS #90 tablet Fluconazole [Diflucan 100 mg Tablet] 100 mg PO DAILY #4 tablet Insulin Lispro [Humalog Insulin (Lispro) 100 unit/mL] 0 - 12 unit SUBCUT ACHS #1 unit Insulin Glargine,Hum.rec.anlog [Lantus Insulin 100 Unit/1 ml 10 ml] 25 unit SUBCUT QHS #1 unit Pantoprazole Sodium [Protonix [address] Tablet] 40 mg PO BID #60 tablet.dr Tobramycin Sulfate/Dexameth [Tobradex Oph Drops 2.5 ml] 2 drop OU Q6 #5 bottle Home Medications: Apixaban [Eliquis 5 mg Tablet] 5 mg PO Q12 12/21/19 Atorvastatin Calcium [Lipitor 20 mg Tablet] 20 mg PO DAILY 12/21/19 Levocetirizine Dihydrochloride [Xyzal] 5 mg PO QPM 12/21/19 Liraglutide [Victoza 2-Parag] 1.8 mg INJ DAILY 12/21/19 Losartan Potassium [Cozaar 25 mg Tablet] 12.5 mg PO DAILY 12/21/19 Metformin HCl [Metformin HCl ER] 1,000 mg PO BID 12/21/19 Torsemide [Demadex 20 mg Tablet] 20 mg PO Q2D 12/21/19 Fluconazole [Diflucan 100 mg Tablet] 100 mg PO DAILY #4 tablet 12/26/19 Insulin Glargine,Hum.rec.anlog [Lantus Insulin 100 Unit/1 ml 10 ml] 25 unit SUBCUT QHS #1 unit 12/26/19 Insulin Lispro [Humalog Insulin (Lispro) 100 unit/mL] 0 - 12 unit SUBCUT ACHS #1 unit 12/26/19 Pantoprazole Sodium [Protonix [address] Tablet] 40 mg PO BID #60 tablet.dr 12/26/19 Sucralfate [Carafate 1 gm Tablet] 1 gm PO ACHS #90 tablet 12/26/19 Tobramycin Sulfate/Dexameth [Tobradex Oph Drops 2.5 ml] 2 drop OU Q6 #5 bottle 12/26/19 History of Present Illiness History of Present Illness: MICHAELA ALY is a 54 year old female This is a 54-year-old female came to the emergency department with a chief complaint of weakness and being unable to get up from the floor. Patient stated that she has been lying on the floor for last 3 days could not get up. She stated that she do not have any injury denied any fall. Patient is currently lives with her son and her son called for ambulance. Patient's denied any headache no chest pain no dizziness no vomiting no fever but complaining of abdominal pain. Patient's denied any medications remember anything new. Patient have a history of the A. fib hypertension's type 2 diabetes irritable bowel syndromes and noncompliance Currently have a colonoscopy done by Dr. Cyr which is all stable. When I saw the patient's in the IMCU patient is alert awake oriented but again was complaining some abdominal discomfort and also patient is complaining of she does not know what happened for the last [address] of the head was negative patient's white count was elevated Patient's denied any headache denied any eye problems Denied any cough no congestions Patient is complaining some breathing difficulty but patient's O2 sat is all normal Patient with significant comorbidity we will get the ABG get the MRI of the head and elevated white count will get the CT scan of the abdomen pelvis to rule out diverticulitis with a history of diverticulosis Hospital Course Hospital Course: This is a 54-year-old female's antibiotic in the hospital for the ketoacidosis uncontrolled blood sugars altered mental status Patient was treated with IV fluids subcu insulin Patient acidosis is all resolved patient was put back on the metformin and patient was put on a insulin Also giving diabetic education's Patient's VQ scan CT scan all stable MRI of the head was negative for any acute finding Patient otherwise denied any problems walk with the hallway without any issues back to the normal Seen by the cardiology echocardiogram done was everything was stable Patient at this point is discharged home even the patient's is denied for any home health but will suggest to continues to home health Patient also needs to use a CPAP machine Is a very noncompliance discussed with the patient about compliance of the diet continues to be close follow-up Continues to follow in a 1 week in office will repeat the CBC and Chem-7 and adjust the insulin Discussed with the patient about hypoglycemic precautions and adjust the insulin if sugar goes down Patient also have endoscopy was done by Dr. Cyr and suggest some gastritis and put on Carafate with the Protonix Physical Exam Vital Signs: Temp Pulse Resp BP Pulse Ox 98.0 F 63 16 99/53 L 97 12/26/19 06:03 12/26/19 07:00 12/26/19 06:03 12/26/19 06:03 12/26/19 06:03 Intake & Output 12/25/19 12/26/19 12/27/19 06:59 06:59 06:59 Intake Total 1282 1570 Output Total 1150 200 Balance 132 1370 Weight 143.7 kg 139.8 kg General appearance: PRESENT: no acute distress, well-developed, well-nourished Head exam: PRESENT: atraumatic, normocephalic Eye exam: PRESENT: conjunctiva pink, EOMI, PERRLA. ABSENT: scleral icterus Ear exam: PRESENT: normal external ear exam Mouth exam: PRESENT: moist, tongue midline Neck exam: ABSENT: carotid bruit, JVD, lymphadenopathy, thyromegaly Respiratory exam: PRESENT: clear to auscultation unique. ABSENT: rales, rhonchi, wheezes Cardiovascular exam: PRESENT: RRR. ABSENT: diastolic murmur, rubs, systolic murmur Pulses: PRESENT: normal dorsalis pedis pul Vascular exam: PRESENT: normal capillary refill GI/Abdominal exam: PRESENT: normal bowel sounds, soft. ABSENT: distended, guarding, mass, organolmegaly, rebound, tenderness Rectal exam: PRESENT: deferred Extremities exam: PRESENT: full ROM. ABSENT: calf tenderness, clubbing, pedal edema Neurological exam: PRESENT: alert, awake, oriented to person, oriented to place, oriented to time, oriented to situation, CN II-XII grossly intact. ABSENT: motor sensory deficit Psychiatric exam: PRESENT: appropriate affect, normal mood. ABSENT: homicidal ideation, suicidal ideation Skin exam: PRESENT: dry, intact, warm. ABSENT: cyanosis, rash Results Laboratory Results: WBC 7.9 10^3/uL (4.0-10.5) 12/25/19 04:28 RBC 4.90 10^6/uL (3.72-5.28) 12/25/19 04:28 Hgb 14.9 g/dL (12.0-15.5) 12/25/19 04:28 Hct 42.3 % (36.0-47.0) 12/25/19 04:28 MCV 87 fl (80-97) 12/25/19 04:28 MCH 30.5 pg (27.0-33.4) 12/25/19 04:28 MCHC 35.2 g/dL (32.0-36.0) 12/25/19 04:28 RDW 14.4 % (11.5-14.0) H 12/25/19 04:28 Plt Count 282 10^3/uL (150-450) 12/25/19 04:28 Lymph % (Auto) 28.9 % (13-45) 12/25/19 04:28 Sargent % (Auto) 9.7 % (3-13) 12/25/19 04:28 Eos % (Auto) 2.4 % (0-6) 12/25/19 04:28 Baso % (Auto) 0.5 % (0-2) 12/25/19 04:28 Absolute Neuts (auto) 4.6 10^3/uL (1.7-8.2) 12/25/19 04:28 Absolute Lymphs (auto) 2.3 10^3/uL (0.5-4.7) 12/25/19 04:28 Absolute Monos (auto) 0.8 10^3/uL (0.1-1.4) 12/25/19 04:28 Absolute Eos (auto) 0.2 10^3/uL (0.0-0.6) 12/25/19 04:28 Absolute Basos (auto) 0.0 10^3/uL (0.0-0.2) 12/25/19 04:28 Total Counted 100 12/22/19 06:57 Seg Neutrophils % 58.5 % (42-78) 12/25/19 04:28 Seg Neuts % (Manual) 84 % (42-78) H 12/22/19 06:57 Lymphocytes % (Manual) 11 % (13-45) L 12/22/19 06:57 Monocytes % (Manual) 5 % (3-13) 12/22/19 06:57 Eosinophils % (Manual) 0 % (0-6) 12/22/19 06:57 Basophils % (Manual) 0 % (0-2) 12/22/19 06:57 Abs Neuts (Manual) 6.6 10^3/uL (1.7-8.2) 12/22/19 06:57 Abs Lymphs (Manual) 0.9 10^3/uL (0.5-4.7) 12/22/19 06:57 Abs Monocytes (Manual) 0.4 10^3/uL (0.1-1.4) 12/22/19 06:57 Absolute Eos (Manual) 0.0 10^3/uL (0.0-0.6) 12/22/19 06:57 Abs Basophils (Manual) 0.0 10^3/uL (0.0-0.2) 12/22/19 06:57 Toxic Granulation SLIGHT 12/22/19 06:57 Platelet Comment ADEQUATE 12/22/19 06:57 Anisocytosis SLIGHT 12/22/19 06:57 Carbonic Acid 0.63 mmol/L (1.05-1.35) L 12/21/19 10:22 HCO3/H2CO3 Ratio 17:1 12/21/19 10:22 ABG pH 7.35 (7.35-7.45) 12/21/19 10:22 ABG pCO2 20.9 mmHg (35-45) L* 12/21/19 10:22 ABG pO2 115.4 mmHg (80-100) H 12/21/19 10:22 ABG HCO3 11.2 mmol/L (20-24) L 12/21/19 10:22 ABG Total CO2 11.8 mmol/L (21-25) L 12/21/19 10:22 ABG O2 Saturation 98.1 % (94-98) H 12/21/19 10:22 ABG Base Excess -12.1 mmol/L 12/21/19 10:22 VBG pH 7.26 (7.30-7.42) L 12/20/19 21:36 VBG pCO2 30.1 mmHg (35-63) L 12/20/19 21:36 VBG HCO3 13.1 mmol/L (20-32) L 12/20/19 21:36 VBG Base Excess -12.5 mmol/L 12/20/19 21:36 FiO2 ROOM AIR 12/21/19 10:22 Sodium 137.8 mmol/L (137-145) 12/25/19 04:28 Potassium 3.5 mmol/L (3.6-5.0) L 12/25/19 04:28 Chloride 105 mmol/L (98-107) 12/25/19 04:28 Carbon Dioxide 26 mmol/L (22-30) 12/25/19 04:28 Anion Gap 7 (5-19) 12/25/19 04:28 BUN 9 mg/dL (7-20) 12/25/19 04:28 Creatinine 1.04 mg/dL (0.52-1.25) 12/25/19 04:28 Est GFR ( Amer) > 60 (>60) 12/25/19 04:28 Est GFR (Non-Af Amer) Cancelled 12/20/19 18:07 Est GFR (MDRD) Non-Af 55 (>60) L 12/25/19 04:28 Glucose 183 mg/dL (75-110) H 12/25/19 04:28 POC Glucose 166 mg/dL (70-110) H 12/26/19 08:25 Lactic Acid 1.1 mmol/L (0.7-2.1) 12/21/19 12:09 Calcium 8.8 mg/dL (8.4-10.2) 12/25/19 04:28 Magnesium 1.7 mg/dL (1.6-2.3) 12/22/19 06:57 Total Bilirubin 0.6 mg/dL (0.2-1.3) 12/22/19 06:57 Direct Bilirubin 0.1 mg/dL (0.0-0.4) 12/22/19 06:57 Neonat Total Bilirubin Not Reportable 12/22/19 06:57 Neonat Direct Bilirubin Not Reportable 12/22/19 06:57 Neonat Indirect Bili Not Reportable 12/22/19 06:57 AST 23 U/L (14-36) 12/22/19 06:57 ALT 18 U/L (<35) 12/22/19 06:57 Alkaline Phosphatase 115 U/L (38-126) 12/22/19 06:57 Creatine Kinase 236 U/L (30-135) H 12/21/19 14:50 CK-MB (CK-2) 2.86 ng/mL (<4.55) 12/21/19 14:50 Troponin I < 0.012 ng/mL 12/21/19 14:50 NT-Pro-B Natriuret Pep 219 pg/mL (<125) H 12/21/19 14:50 Total Protein 5.4 g/dL (6.3-8.2) L 12/22/19 06:57 Albumin 2.9 g/dL (3.5-5.0) L 12/22/19 06:57 EGFR Cancelled 12/20/19 18:07 Urine Color YELLOW 12/20/19 19:27 Urine Appearance CLEAR 12/20/19 19:27 Urine pH 6.0 (5.0-9.0) 12/20/19 19:27 Ur Specific [place] 1.023 12/20/19 19:27 Urine Protein 100 mg/dL (NEGATIVE) H 12/20/19 19:27 Urine Glucose (UA) >=500 mg/dL (NEGATIVE) H 12/20/19 19:27 Urine Ketones 80 mg/dL (NEGATIVE) H 12/20/19 19:27 Urine Blood NEGATIVE (NEGATIVE) 12/20/19 19:27 Urine Nitrite NEGATIVE (NEGATIVE) 12/20/19 19:27 Urine Bilirubin NEGATIVE (NEGATIVE) 12/20/19 19:27 Urine Urobilinogen NEGATIVE mg/dL (<2.0) 12/20/19 19:27 Ur Leukocyte Esterase NEGATIVE (NEGATIVE) 12/20/19 19:27 Urine WBC (Auto) 0 /HPF 12/20/19 19:27 Urine RBC (Auto) 1 /HPF 12/20/19 19:27 U Hyaline Cast (Auto) 1 /LPF 12/20/19 19:27 Urine Mucus (Auto) RARE /LPF 12/20/19 19:27 Urine Ascorbic Acid NEGATIVE (NEGATIVE) 12/20/19 19:27 12/20/19 12/21/19 12/21/19 18:40 00:30 08:06 CK-MB (CK-2) 1.81 2.56 Troponin I < 0.012 < 0.012 < 0.012 NT-Pro-B Natriuret Pep 12/21/19 12/21/19 14:50 14:50 CK-MB (CK-2) 2.86 Troponin I < 0.012 NT-Pro-B Natriuret Pep 219 H Impressions: Chest X-Ray 12/20/19 20:40 IMPRESSION: No acute disease. copyright 2011 [employer]- All Rights Reserved Head CT 12/20/19 20:40 IMPRESSION: 1. No acute intracranial findings. If there is clinical concern for acute stroke, consider MRI brain as a more sensitive evaluation. Abdomen/Pelvis CT 12/21/19 00:00 IMPRESSION: NO SIGNIFICANT OR ACUTE FINDING IN THE ABDOMEN OR PELVIS ON CT SCAN WITH IV CONTRAST. No evidence for diverticulitis. Head MRI 12/21/19 00:00 IMPRESSION: NORMAL MRI OF THE BRAIN WITHOUT INTRAVENOUS GADOLINIUM CONTRAST. EVIDENCE OF ACUTE STROKE: NO. Chest X-Ray 12/22/19 00:00 IMPRESSION: Stable chest radiograph without evidence of acute cardiopulmonary process. Lung Scan-VQ NM 12/22/19 12:36 IMPRESSION: No mismatched perfusion defects to suggest pulmonary embolus. Negative V/Q scan for pulmonary embolus. Plan Time Spent: Greater than 30 Minutes - Follow with Dr. Cyr as outpatients follow with the cardiology Dr. Alexandre and follow in office 1 week we will repeat the CBC and Chem-7 and reevaluate the patient's blood sugar Stroke Is this a Stroke Patient?: No Acute Heart Failure - Is this a Heart Failure Patient?: No
[2019-12-26 10:02] VITALS: BP 141/55
== END 2019-12-26 10:15 | disposition home health service (06) | DRG 638 ==
LOC: ER 17:41 → EH 12-21 00:15 → 3W 12-21 03:04
PROVIDERS: ADMIT Family Medicine; ATTEND Family Medicine
PROC: 0DB68ZX Excision of Stomach, Via Natural or Artificial Opening Endoscopic, Diagnostic (ICD-10-PCS; principal; 2019-12-23 16:30)
DX: E11.10 Type 2 diabetes mellitus with ketoacidosis without coma (principal); I50.32 Chronic diastolic (congestive) heart failure; I11.0 Hypertensive heart disease with heart failure; E78.5 Hyperlipidemia, unspecified; E66.9 Obesity, unspecified; I48.0 Paroxysmal atrial fibrillation; R26.2 Difficulty in walking, not elsewhere classified; R53.1 Weakness; K58.9 Irritable bowel syndrome, unspecified; K29.70 Gastritis, unspecified, without bleeding; K21.9 Gastro-esophageal reflux disease without esophagitis; K44.9 Diaphragmatic hernia without obstruction or gangrene; M19.90 Unspecified osteoarthritis, unspecified site; R41.82 Altered mental status, unspecified; I44.7 Left bundle-branch block, unspecified; E86.0 Dehydration; Z91.19 Patient's noncompliance with other medical treatment and regimen; Z79.01 Long term (current) use of anticoagulants; Z79.4 Long term (current) use of insulin; Z89.421 Acquired absence of other right toe(s); Z83.3 Family history of diabetes mellitus; Z82.49 Family history of ischemic heart disease and other diseases of the circulatory system; Z83.42 Family history of familial hypercholesterolemia; Z82.61 Family history of arthritis; Z88.3 Allergy status to other anti-infective agents; Z88.8 Allergy status to other drugs, medicaments and biological substances
CPT/HCPCS: 36415; 36600; 43239; 70450; 70551; 71045; 74177; 78582; 80048; 80053; 81001; 82550; 82553; 82803; 82962; 83605; 83735; 83880; 84484; 85025; 87040; 87086; 88305; 88342; 93005; 93010; 93306; 96360; 96361; 99285; A9540; A9567; C9113; J0171; J0692; J1200; J1610; J1650; J1815; J2250; J2310; J2405; J3010; J3490; J7030; J7060; J7120; J7620; Q9969

== ENCOUNTER → 2020-01-05 | Outpatient (CLI) | payer MEDICARE, MEDICAID ==
[2020-01-05 12:45] LABS: ABSOLUTE EOSINOPHILS # (AUTO) 0.1 10^3/uL (0.0-0.6); ABSOLUTE LYMPHOCYTES (AUTO) 1.3 10^3/uL (0.5-4.7); ABSOLUTE MONOCYTES (AUTO) 0.3 10^3/uL (0.1-1.4); ABSOLUTE NEUT (AUTO) 2.5 10^3/uL (1.7-8.2); BASOPHILS % (AUTO) 0.7 % (0-2); EOSINOPHILS % (AUTO) 2.4 % (0-6); HEMATOCRIT 35.6 % (36.0-47.0); HEMOGLOBIN 12.3 g/dL (12.0-15.5); MEAN CORPUSCULAR HEMOGLOBIN 31.3 pg (27.0-33.4); MEAN CORPUSCULAR HGB CONC 34.5 g/dL (32.0-36.0); MONOCYTES % (AUTO) 7.6 % (3-13); PLATELET COUNT 201 10^3/uL (150-450); RED BLOOD COUNT 3.93 10^6/uL (3.72-5.28); RED CELL DISTRIBUTION WIDTH 15.5 % (11.5-14.0); SEGMENTED NEUTROPHILS % (AUTO) 58.3 % (42-78); TOTAL CELLS COUNTED % (AUTO) 100 %; WHITE BLOOD COUNT 4.2 10^3/uL (4.0-10.5)
[2020-01-05 13:02] LABS: MEAN CORPUSCULAR VOLUME 91 fl (80-97)
[2020-01-05 13:04] LABS: ALBUMIN 3.4 g/dL (3.5-5.0); ALKALINE PHOSPHATASE 132 U/L (38-126); ANION GAP 7 (5-19); ASPARTATE AMINO TRANSFERASE 40 U/L (14-36); BILIRUBIN,TOTAL 0.4 mg/dL (0.2-1.3); BLOOD UREA NITROGEN 21 mg/dL (7-20); CALCIUM 9.3 mg/dL (8.4-10.2); CARBON DIOXIDE 31 mmol/L (22-30); CHLORIDE 99 mmol/L (98-107); GLUCOSE 134 mg/dL (75-110); POTASSIUM 4.3 mmol/L (3.6-5.0); TOTAL PROTEIN 5.9 g/dL (6.3-8.2)
== END ==
LOC: OD 11:45
PROVIDERS: ATTEND Physician Assistant
DX: E11.69 Type 2 diabetes mellitus with other specified complication (principal)
CPT/HCPCS: 36415; 80053; 85025

== ENCOUNTER → 2020-09-01 | Outpatient (CLI) | payer MEDICARE, MEDICAID ==
--- NOTE | 2020-09-01 14:43 | WOMENS IMAGING REPORT ---
EXAM DESCRIPTION: BILAT SCREENING MAMMO W/CAD IMAGES COMPLETED DATE/TIME: 09/01/2020 2:24 pm REASON FOR STUDY: Z12.31 ENCOUNTER FOR SCREENING MAMMOGRAM FOR MALIGNANT NEOPLASM OF BREAST Z12.31 ENCNTR SCREEN MAMMOGRAM FOR MALIGNANT NEOPLASM OF JOSE COMPARISON: 07/23/2018 and 07/16/2017. EXAM PARAMETERS: Standard craniocaudal and mediolateral oblique views of each breast recorded using digital acquisition. Read with the assistance of CAD. .[facility] - [employer] Machine Adjuster Version 9.2 LIMITATIONS: None. FINDINGS: No suspicious masses, suspicious calcifications or architectural distortion. No areas of c oncern. IMPRESSION: NEGATIVE MAMMOGRAM. BIRADS 1 BREAST DENSITY: a. The breasts are almost entirely fatty. BIRAD: ASSESSMENT: 1 NEGATIVE RECOMMENDATION: ROUTINE SCREENING COMMENT: The patient has been notified of the results by letter per MQSA requirements. Additional no tification policies are in place for contacting patient with suspicious or incomplete findings. Quality ID #[id number]: The [employer] recommends an annual screening mammogram for women aged 40 years or over. This facility utilizes a reminder system to ensure that all patients receive reminder letters, and/or direct phone calls for appointments. This includes reminders for routine scr eening mammograms, diagnostic mammograms, or other Breast Imaging Interventions when appropriate. Th is patient will be placed in the appropriate reminder system. TECHNICAL DOCUMENTATION: FINDING NUMBER: (1) ASSESSMENT: (1) JOB ID: [id number] 2010 [employer]- All Rights Reserved Reading location - IP/workstation name: [email or web address]
== END ==
LOC: WI 13:44
PROVIDERS: ATTEND Physician Assistant
DX: Z12.31 Encounter for screening mammogram for malignant neoplasm of breast (principal)
CPT/HCPCS: 77067

== ENCOUNTER 2020-10-07 07:55 | Outpatient (CLI) | payer MEDICARE, MEDICAID ==
[2020-10-07] MEDS ORDERED: IRON DEXTRAN COMPLEX 775 MG in NORMAL SALINE 500 ML IV PRN (08:02)
[2020-10-07] MEDS ORDERED: IRON DEXTRAN COMPLEX 25 MG in SYRINGE, DISPOSABLE, 1 EACH IV PRN (08:05)
[2020-10-07 09:22] VITALS: BP 119/74
== END 2020-10-07 14:00 | disposition home or self-care (01) ==
LOC: 5TH 07:55 → II 07:57 → EDSTATUS 08:00 → 5TH 08:22
PROVIDERS: ATTEND Internal Medicine
DX: D50.8 Other iron deficiency anemias (principal)
CPT/HCPCS: 96365; 96366; 96375; J1750; J7040; J3490

== ENCOUNTER 2020-10-15 07:33 | Outpatient (CLI) | payer MEDICARE, MEDICAID ==
[2020-10-15] MEDS ORDERED: NORMAL SALINE 250 ML IV PRN (08:00)
[2020-10-15] MEDS ORDERED: IRON DEXTRAN COMPLEX 800 MG in NORMAL SALINE 500 ML IV PRN (08:00)
[2020-10-15 08:07] VITALS: BP 140/61
== END 2020-10-15 11:30 | disposition home or self-care (01) ==
LOC: II 07:33 → 5TH 07:35 → II 11:30
PROVIDERS: ATTEND Internal Medicine
DX: D50.8 Other iron deficiency anemias (principal)
CPT/HCPCS: 96365; 96366; J1750; J7040